=== PATIENT | female | born 1950 | race Caucasian/White ===

== ENCOUNTER 2020-02-06 20:00 | Outpatient (CLI) | payer MEDICARE, OTHER, SELFPAY | END 2020-02-06 20:01 | disposition home or self-care (01) | LOC: SLEEP 02-07 13:33 | PROVIDERS: Family Provider Family Medicine; PCP Nurse Practitioner Family; Visit Provider Nurse Practitioner Family | DX: G47.33 Obstructive sleep apnea (adult) (pediatric) (principal) | CPT/HCPCS: 95810; 95811 ==

== ENCOUNTER → 2020-05-17 14:38 | Outpatient (BNVA) | payer MEDICARE, OTHER, SELFPAY | PROVIDERS: Family Provider Family Medicine; PCP Nurse Practitioner Family; Visit Provider Nurse Practitioner Family | DX: N39.46 Mixed incontinence (principal) | CPT/HCPCS: 81001 ==

== ENCOUNTER 2020-09-17 13:58 | Outpatient (CLI) | payer MEDICARE, OTHER, SELFPAY ==
--- NOTE | 2020-09-17 14:12 | XR_ITS ---
WS: [id number] SCREENING DEXA SCAN Everyone Counts CLINICAL INFORMATION: OSTEOPOROSIS COMPARISON: FINDINGS: The L1-L4 bone mineral density measures 0.926 g/cm2. This corresponds to a T score score of -2.1 and Z score of -1.0. Left femoral neck bone mineral density measures 0.790 g/cm2. This corresponds to a T score of -1.7 an d Z score of -0.7. Right femoral neck bone mineral density measures 0.783 g/cm2. This corresponds to a T score -1.8of an d Z score of -0.8. Mean femoral neck bone mineral density measures 0.787 g/cm2. This corresponds to a T score of -1.8 an d Z score of -0.7. XR/XR DEXA axial skeleton* 69904 IMPRESSION: Osteopenia Patient's FRAX calculated 10 year probability for major osteoporotic fracture i s 21.4 % and osteoporotic hip fracture is 5.1%.
== END 2020-09-17 13:59 | disposition home or self-care (01) ==
LOC: RADWPI 14:05
PROVIDERS: PCP Nurse Practitioner Family; Visit Provider Nurse Practitioner Family
DX: M81.0 Age-related osteoporosis without current pathological fracture (principal); M85.88 Other specified disorders of bone density and structure, other site
CPT/HCPCS: 77080

== ENCOUNTER 2020-11-22 13:58 | Outpatient (CLI) | payer MEDICARE, OTHER, SELFPAY ==
--- NOTE | 2020-11-22 14:12 | CT_ITS ---
WS: [id number] CT LEFT ANKLE, NONCONTRAST WITH 3-D REFORMATS. HISTORY: LEFT LATERAL ANKLE PAIN Technique: All CT scans at [facility] use at least one of these dose optimization techniq ues: automated exposure control; mA and/or kV adjustment per patient size (includes targeted exams wh ere dose is matched to clinical indication); or iterative reconstruction. DLP: 610.19 mGycm COMPARISON: 11/13/2020 There is a nondisplaced fracture extending vertically through the posterior tibia. There is a long no ndisplaced oblique fracture through the distal fibula which is not definitely identified radiographic ally. Fibular fracture extends over length of approximately 8 cm. There are several small tiny avulsi on fractures anterior to the fibula near the distal tibiofibular articulation. Suspect ligamentous in jury involving the anterior tibiofibular ligament. No fracture at the medial malleolus. Talus is inta ct. No calcaneal fracture. Large amount of soft tissue edema along the lateral ankle. CT/CT ankle LT wo con* [id number] IMPRESSION: 1. Nondisplaced vertical distal fibular fracture extends over length of 8 cm. Several small avulsion fractures anteriorly at the tibiofibular articulation. 2. Nondisplaced vertical posterior malleolus fracture.
== END 2020-11-22 13:59 | disposition home or self-care (01) ==
LOC: RADWPI 14:05
PROVIDERS: PCP Nurse Practitioner Family; Visit Provider Nurse Practitioner Family
DX: S82.832A Other fracture of upper and lower end of left fibula, initial encounter for closed fracture (principal); S82.892A Other fracture of left lower leg, initial encounter for closed fracture; X58.XXXA Exposure to other specified factors, initial encounter
CPT/HCPCS: 73700

== ENCOUNTER 2021-05-13 08:43 | Outpatient (RCR) | payer MEDICARE, OTHER, SELFPAY | END 2021-05-28 23:59 | disposition home or self-care (01) | LOC: SPT 08:43 | PROVIDERS: PCP Nurse Practitioner Family; Referring Provider Student in an Organized Health Care Education/Training Program; Visit Provider Student in an Organized Health Care Education/Training Program | DX: Z47.1 Aftercare following joint replacement surgery (principal); Z96.652 Presence of left artificial knee joint | CPT/HCPCS: 97110; 97161 ==

== ENCOUNTER 2021-05-29 06:00 | Outpatient (RCR) | payer MEDICARE, OTHER, SELFPAY | END 2021-06-27 23:59 | disposition home or self-care (01) | LOC: SPT 06:00 | PROVIDERS: PCP Nurse Practitioner Family; Referring Provider Student in an Organized Health Care Education/Training Program; Visit Provider Student in an Organized Health Care Education/Training Program | DX: Z47.1 Aftercare following joint replacement surgery (principal); Z96.652 Presence of left artificial knee joint | CPT/HCPCS: 97110 ==

== ENCOUNTER 2021-06-28 06:00 | Outpatient (RCR) | payer MEDICARE, OTHER, SELFPAY | END 2021-07-28 23:59 | disposition home or self-care (01) | LOC: SPT 06:00 | PROVIDERS: PCP Nurse Practitioner Family; Referring Provider Student in an Organized Health Care Education/Training Program; Visit Provider Student in an Organized Health Care Education/Training Program | DX: Z47.1 Aftercare following joint replacement surgery (principal); Z96.652 Presence of left artificial knee joint | CPT/HCPCS: 97110 ==

== ENCOUNTER 2021-11-06 06:00 | Outpatient (RCR) | payer MEDICARE, OTHER, SELFPAY | END 2021-11-25 23:59 | disposition home or self-care (01) | LOC: SPT 06:00 | PROVIDERS: PCP Nurse Practitioner Family; Referring Provider Student in an Organized Health Care Education/Training Program; Visit Provider Student in an Organized Health Care Education/Training Program | DX: M17.11 Unilateral primary osteoarthritis, right knee (principal) | CPT/HCPCS: 97110; 97150; 97161; G0283 ==

== ENCOUNTER 2021-11-26 06:00 | Outpatient (RCR) | payer MEDICARE, OTHER, SELFPAY | END 2021-12-26 23:59 | disposition home or self-care (01) | LOC: SPT 06:00 | PROVIDERS: PCP Nurse Practitioner Family; Referring Provider Student in an Organized Health Care Education/Training Program; Visit Provider Student in an Organized Health Care Education/Training Program | DX: M17.11 Unilateral primary osteoarthritis, right knee (principal) | CPT/HCPCS: 97110 ==

== ENCOUNTER 2021-12-27 06:00 | Outpatient (RCR) | payer MEDICARE, OTHER, SELFPAY | END 2022-01-25 23:59 | disposition home or self-care (01) | LOC: SPT 06:00 | PROVIDERS: PCP Nurse Practitioner Family; Referring Provider Student in an Organized Health Care Education/Training Program; Visit Provider Student in an Organized Health Care Education/Training Program | DX: M17.11 Unilateral primary osteoarthritis, right knee (principal) | CPT/HCPCS: 97110 ==

== ENCOUNTER 2022-04-21 07:45 | Inpatient (IN) | payer MEDICARE, OTHER, SELFPAY ==
[2022-04-21] VITALS (10 sets, daily range): BP systolic 126–180; BP diastolic 58–99; PULSE 68–91; RESP 15–22; TEMP 36.7–36.8; O2SAT 96–100; BMI 30.3; BMI 30.4
--- NOTE | 2022-04-21 07:55 | XR_ITS ---
WS: [id number] Exam: XR chest 1V portable [id number] Date/Time of Exam: 04/21/2022 8:00 AM Reason For Exam: dyspnea/cough The lungs are clear and fully expanded. Mild plaque atelectasis in the lower lung zones. Normal cardi omediastinal silhouette. Levoscoliosis of the T-spine. Single old lower thoracic compression deformit y. XR/XR chest 1V portable [id number] IMPRESSION: 1. No acute cardiopulmonary process. 2. Levoscoliosis of the thoracic spine. At least one old lower thoracic misa khushbu deformity.
[2022-04-21 08:52] LABS: Basophils % 0.4 %; Eosinophils # 0.3 10^3/uL (0.0-0.8); Eosinophils % 4.1 %; Hematocrit 44.9 % (37.0-47.0); Hemoglobin 14.5 g/dL (11.5-15.3); Lymphocytes # 1.1 10^3/uL (0.8-4.8); Lymphocytes % 15.5 %; Mean Corpuscular HGB Conc 32.3 g/dL (30.0-36.0); Mean Corpuscular Volume 86.8 fl (81-99); Mean Platelet Volume 10.1 fL (7.4-10.4); Monocytes # 0.3 10^3/uL (0.2-0.9); Monocytes % 4.7 %; Neutrophils # 5.07 10^3/uL (1.8-7.7); Neutrophils % 74.9 %; Nucleated Red Blood Cells % 0 %; Platelet Count 230 10^3/cmm (130-400); Red Blood Count 5.17 10^6/uL (4.1-5.3); Red Cell Distribution Width 12.7 % (12.1-15.1); White Blood Count 6.8 10^3/uL (4.0-10.0)
--- NOTE | 2022-04-21 09:14 | ECG_ITS ---
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 Measurements Intervals Winn Rate: 73 P: 43 NE: 151 QRS: 17 QRSD: 96 T: 47 QT: 391 QTc: 432 Interpretive Statements SINUS RHYTHM WITH SINUS ARRHYTHMIA LOW QRS VOLTAGE IN PRECORDIAL LEADS [QRS DEFLECTION < 1.0 mV IN CHEST LEADS] No previous ECG available for comparison Electronically Signed On 04-21-2022 20:49:47 CDT by Kerrie Turner M.D. [id number]
--- NOTE | 2022-04-21 09:14 | CT_ITS ---
WS: [id number] CT HEAD NONCONTRAST HISTORY: Symptoms of Acute Stroke TECHNIQUE: Contiguous axial imaging performed through the brain in 2.5 mm imaging. Bone and soft tiss ue windows. Sagittal and coronal reformats reviewed. All CT scans at [facility] use at least one of these dose optimization techniques: automated exposure control; mA and/or kV adjustment per pa tient size (includes targeted exams where dose is matched to clinical indication); or iterative recon struction. DLP: 1018.88 mGy.cm COMPARISON: None available. No acute intracranial hemorrhage, midline shift or mass effect. Moderate atrophy and small vessel ischemic disease. Multiple lacunar infarcts are identified. Lacunar infarcts in the internal capsules and basal ganglia. No large infarct. Cerebellum and brainstem are negative. Ventricles: Normal size with no hydrocephalus. No inferior displacement of cerebellar tonsils. Paranasal sinuses: As visualized are clear. Mastoid air cells: Well pneumatized. Calvarium and scalp: Skull is intact with no soft tissue edema or swelling. CT/CT head wo con* [id number] IMPRESSION: 1. No acute intracranial hemorrhage or edema. 2. Moderate atrophy and small vessel ischemic disease. 3. Chronic lacunar infarcts in the basal ganglia. No acute sulcal displacement or effacement.
--- NOTE | 2022-04-21 09:15 | W.ED.NEUROSD ---
HPI - Neuro Symptoms/Deficit General: Chief Complaint: Neuro Symptoms/Deficit Stated Complaint: Post covid complications Time Seen by Provider: 04/21/22 07:54 Source: patient Mode of arrival: ambulatory Limitations: altered mental status History of Present Illness: 71-year-old female presents emergency room with complaints of difficulty with memory and speech sudden new onset. She was last known well approximately 36 hours ago according to her . He noticed that yesterday morning when she woke up that her memory was poor her word finding was difficult. She is able to answer questions she is able to give me her phone number her birthday she can identify her she will follow simple commands but states she has trouble focusing and other things she has difficulty with she does not remember taking Paxil of the she cannot really explain to me what has been going on or when it started all that information came from her . She was diagnosed with COVID 10 days ago took a 5-day course of Paxil bed and up until 36 hours ago seem normal. She denies any chest pain she denies any previous history of heart disease or stroke or diabetes. She does have a history of hypothyroidism no previous episodes like this. Onset (ago): hour(s) (36) Timing confirmed by: spouse Location: speech History of same: No Severity: moderate Relieving factors: none Exacerbating factors: none Context: gradual onset Associated symptoms: Reports weakness; Deny chest pain, cough, diaphoresis, fevers/chills, headache(s), anorexia, malaise, nausea, seizures, short of breath, syncope, tingling, vertigo or vomiting Treatments Prior to Arrival: none Review of Systems Const: Denies: fever(s), chills, fatigue, malaise or diaphoresis ENMT: Denies: throat pain, ear or mastoid pain, nasal discharge or nasal congestion Card: Denies: chest pain or syncope Resp: Denies: dyspnea, productive cough or non-productive cough GI: Denies: abdominal pain, nausea or vomiting : Denies: flank pain, difficulty voiding, dysuria, urinary frequency or urinary urgency Musc: Denies: neck pain or back pain Skin/Breast: Denies: rash or pruritus Neuro: Reports: confusion and difficulty communicating thoughts; Denies: headache(s), vertigo or Slurred speech present [facility] PFSH: Medical History Actinic keratoses Areas on face treated with liquid nitrogen 06/2021 Depression Epilepsy Hyperlipidemia Hypothyroidism Mixed stress and urge urinary incontinence ELLIOTT (obstructive sleep apnea) On CPAP: Optimal pressure 8cm, prescribed 6-12cm auto-titrating Osteoporosis Plantar porokeratosis, acquired Status post administration of all doses of COVID-19 vaccine series Surgical History History of bunionectomy History of oral surgery History of tonsillectomy History of total bilateral knee replacement Hx of hysterectomy Hx of lumpectomy Family History Sister , AT AGE 63 HEART ATTACK CAD (coronary artery disease) Denies family history of Clotting disorder Stroke Social History Smoking and tobacco status: never smoked Alcohol intake: never Substance/Drug Use: never Caregiver/support person: Yes (spouse) Household members: spouse Marital status: Current occupational status: retired NIH stroke score NIHSS: Level Of Consciousness - 1a: 0 Level Of Consciousness Questions - 1b: One Correct Level Of Consciousness Commands - 1c: Both Correct Best Gaze - 2: Normal Visual Jesus - 3: No Visual Loss Facial Palsy - 4: Normal Motor Arm Right - 5: No Drift Motor Arm Left - 5: No Drift Motor Leg Right - 6: No Drift Motor Leg Left - 6: No Drift Limb Ataxia - 7: Absent Sensory - 8: Normal Best Language - 9: Mild/Moderate Aphasia Dysarthia - 10: Normal Extinction And Inattention - 11: 0 Score: Total Score: 2 Physical Exam Const: COMMON NORMALS: no acute distress GENERAL APPEARANCE: cooperative and comfortable ORIENTATION/CONSCIOUSNESS: Yes awake, Yes oriented to person, Yes oriented to place and Yes oriented to time HENMT: COMMON NORMALS: normocephalic, atraumatic and hearing grossly normal bilaterally HEAD & SCALP: normocephalic and atraumatic Neck/C-Spine: COMMON NORMALS: no JVD Resp: COMMON NORMALS: normal respiratory effort, No retractions, No use of accessory muscles and clear to auscultation bilaterally AUSCULTATION: clear to auscultation bilaterally Cardio: COMMON NORMALS: no JVD, regular rate, regular rhythm and No murmurs present (Cardio) RATE: regular rate RHYTHM: regular rhythm GI: COMMON NORMALS: Soft to palpation and No hepatosplenomegaly present AUSCULTATION: Yes normoactive bowel sounds PALPATION: Yes Soft to palpation, No Tenderness to palpation present (GI), No Guarding due to palpation present (GI) and Yes No hepatosplenomegaly present Extremity: COMMON NORMALS: normal to inspection, capillary refill normal, no clubbing, cyanosis or edema, no calf tenderness and no pedal edema Neuro: SENSORIUM/ORIENTATION: Yes oriented to person, Yes oriented to place and Yes oriented to time Skin: COMMON NORMALS: no rashes or lesions noted GENERAL SKIN EXAM: no rashes or lesions noted Course Vital Signs: Vital signs: Vital Signs Temperature 98.1 F 04/21/22 08:12 Pulse Rate 73 04/21/22 13:11 Respiratory Rate 22 H 04/21/22 13:11 Blood Pressure 142/77 04/21/22 13:11 Pulse Oximetry 99 04/21/22 13:11 MDM - Neuro Symptoms/Deficit Medical Decision Making Patient has word finding difficulty and memory loss which her reports is now. Interestingly after she had been here time we made the decision to admit her they reported having had a seizure she added that she has a history of seizures and is on Depakote is not taken for the last couple of days. They do not report having had any other fevers. She did test positive for COVID took a course of pack Slo-Bid and then had the symptoms. Discussed Dr. Lentz orders are written. Medical Records I reviewed the patient's medical records. Lab Data I reviewed the patient's lab results. : 04/21/22 08:30 04/21/22 08:30 Radiology Impressions Chest X-Ray 04/21/22 07:55 IMPRESSION: 1. No acute cardiopulmonary process. 2. Levoscoliosis of the thoracic spine. At least one old lower thoracic compression deformity. Head CT 04/21/22 09:14 IMPRESSION: 1. No acute intracranial hemorrhage or edema. 2. Moderate atrophy and small vessel ischemic disease. 3. Chronic lacunar infarcts in the basal ganglia. No acute sulcal displacement or effacement. Laboratory Results WBC 6.8 10^3/uL (4.0-10.0) 04/21/22 08:30 RBC 5.17 10^6/uL (4.1-5.3) 04/21/22 08:30 Hgb 14.5 g/dL (11.5-15.3) 04/21/22 08:30 Hct 44.9 % (37.0-47.0) 04/21/22 08:30 MCV 86.8 fl (81-99) 04/21/22 08:30 MCH 28.0 pg (28.0-34.0) 04/21/22 08:30 MCHC 32.3 g/dL (30.0-36.0) 04/21/22 08:30 RDW 12.7 % (12.1-15.1) 04/21/22 08:30 Plt Count 230 10^3/cmm (130-400) 04/21/22 08:30 MPV 10.1 fL (7.4-10.4) 04/21/22 08:30 Neut % (Auto) 74.9 % 04/21/22 08:30 Lymph % (Auto) 15.5 % 04/21/22 08:30 [place] % (Auto) 4.7 % 04/21/22 08:30 Eos % (Auto) 4.1 % 04/21/22 08:30 Baso % (Auto) 0.4 % 04/21/22 08:30 Neut # (Auto) 5.07 10^3/uL (1.8-7.7) 04/21/22 08:30 Lymph # (Auto) 1.1 10^3/uL (0.8-4.8) 04/21/22 08:30 [place] # (Auto) 0.3 10^3/uL (0.2-0.9) 04/21/22 08:30 Eos # (Auto) 0.3 10^3/uL (0.0-0.8) 04/21/22 08:30 Baso # (Auto) 0.0 10^3/uL (0.0-0.1) 04/21/22 08:30 Nucleated RBC % (auto) 0 % 04/21/22 08:30 Nucleated RBCs # 0.0 /100WBC 04/21/22 08:30 PT 14.00 SECONDS (12.1-14.9) 04/21/22 08:30 INR 1.05 (0.8-1.2) 04/21/22 08:30 APTT 29.3 SECONDS (23.9-36.7) 04/21/22 08:30 Sodium 136 mmol/L (136-145) 04/21/22 08:30 Potassium 4.1 mmol/L (3.5-5.1) 04/21/22 08:30 Chloride 97 mmol/L (98-107) L 04/21/22 08:30 Carbon Dioxide 26 mmol/L (22-29) 04/21/22 08:30 Anion Gap 17.1 (5-19) 04/21/22 08:30 BUN 12 mg/dL (8-23) 04/21/22 08:30 Creatinine 0.6 mg/dL (0.5-0.9) 04/21/22 08:30 GFR Calculation Not Reportable 04/21/22 08:30 Glucose 110 mg/dL (65-115) 04/21/22 08:30 Calculated Osmolality 282 mOsm/kg (285-295) L 04/21/22 08:30 Calcium 9.5 mg/dL (8.5-10.5) 04/21/22 08:30 Total Bilirubin 0.4 mg/dL (0.15-1.2) 04/21/22 08:30 AST 41 U/L (0-32) H 04/21/22 08:30 ALT 21 U/L (0-33) 04/21/22 08:30 Alkaline Phosphatase 100 IU/L (35-105) 04/21/22 08:30 Total Protein 7.0 g/dL (6.6-8.7) 04/21/22 08:30 Albumin 4.5 g/dL (3.5-5.2) 04/21/22 08:30 Globulin 2.5 g/dL (1.3-4.6) 04/21/22 08:30 SARS-CoV-2 Ag (Rapid) Negative (Negative) 04/21/22 09:51 Discharge Plan Discharge Patient Disposition: Admitted As Inpatient Admit Provider: Marysol Lentz Clinical Impression: Cerebrovascular accident, Epilepsy, COVID-19, Hypothyroidism, Elevated blood pressure reading without diagnosis of hypertension Condition: Stable Coding Level of Care Code ED Chief Nuclear Medicine Technologist for Chg Fwd Exam Comprehensive
[2022-04-21 09:22] LABS: Blood Urea Nitrogen 12 mg/dL (8-23); Calcium 9.5 mg/dL (8.5-10.5); Carbon Dioxide 26 mmol/L (22-29); Chloride 97 mmol/L (98-107); Glucose 110 mg/dL (65-115); Osmolality Calculated 282 mOsm/kg (285-295); Sodium 136 mmol/L (136-145)
[2022-04-21 09:29] LABS: Anion Gap 17.1 (5-19); Potassium 4.1 mmol/L (3.5-5.1)
[2022-04-21] MEDS: aspirin 325 mg Tablet PO (09:29)
[2022-04-21] MEDS: labetalol 5 mg/mL SDV 20mL 10 MG IV (09:35)
[2022-04-21 10:11] LABS: Alanine Aminotransferase 21 U/L (0-33); Albumin Level 4.5 g/dL (3.5-5.2); Alkaline Phosphatase 100 IU/L (35-105); Globulin 2.5 g/dL (1.3-4.6); Total Bilirubin 0.4 mg/dL (0.15-1.2)
[2022-04-21 10:12] LABS: INR 1.05 (0.8-1.2); Partial Thromboplastin Time 29.3 SECONDS (23.9-36.7)
[2022-04-21 10:25] LABS: Aspartate Amino Transferase 41 U/L (0-32)
[2022-04-21 11:04] LABS: SARS Covid-2 Antigen Negative (Negative)
--- NOTE | 2022-04-21 11:45 | PM.HP ---
Providers/Chief Complaint Admitting Physician: Marysol Lentz MD Primary Care Provider: FRANCESCO Molina Chief Complaint: Post covid complications History of Present Illness Rox Denson is a 71 year old female who presented to the emergency room with chief complaint of not acting right and concern for possible seizure. Mrs. Denson has a history of seizure disorder for which she has been on Depakote for a long time. Last seizure was maybe 15 to 20 years ago according to the . She will have petit mall seizures but sometimes does have shaking tremors with them. She follows with neurologist in [place]. At her last appointment there was even question about whether or not she needed to stay on Depakote and had been so long since her last seizure. Around April 11, Mrs. Denson tested positive for COVID. She started a prescription for Paxlovid on April 12, finishing it on April 16. She had been doing okay in terms of recovering from COVID, still being tired and such. She was her normal self on Thursday. On Thursday she was a bit lackluster in her interactions. Thursday night she did not sleep at all. On Thursday her describes her as being spaced out . She did not eat much of anything at all and did not seem to care about anything. She was not talking to him. He took her for a drive, hoping that change of scenery might help but there was no change. He wondered at the time if she was having seizures but was not certain. She was okay walking. No report of any falls. Just simply not herself. She did sleep Thursday night. He originally hoped that upon awakening she would be better but she continued to be the same. Mr. Denson took Rox to [facility] this morning and they sent her to the emergency room for further evaluation. In talking with Mrs. Denson she answers predominantly yes/no questions. She can answer things like that she is at the hospital or that her is sitting in the room and speak her name and date of but when you ask her more complex questions the words do not come and she starts crying. When directly asked, she states that she knows what she wants to say but the words will not come out. She answers yes to questions about being dizzy with position changes in particular. Dizziness goes away after a few steps. No tinnitus. No vision changes. She reports difficulty swallowing anything other than water with a choking like sensation. She has not been able to describe to her what was going on. In the emergency room she was noted to be quite hypertensive on arrival with initial blood pressures 180/69. She does not carry a diagnosis of hypertension and is not on any chronic treatment. She does have known hyperlipidemia for which she is on statin therapy. No personal history of stroke. No family history of stroke. She is a non-smoker. NIH stroke scale was 2 per emergency room documentation. She presented outside of the window for tPA or invasive intervention. Noncontrasted CT of the head showed some chronic lacunar infarcts but no acute changes were identified. Atrophy and small vessel ischemic changes also described. Hospitalist were called for admission for further neurological evaluation. Urinalysis is still pending. No current fever. No current upper respiratory symptoms. No GI symptoms. Has been fatigued. Her also had COVID. While in the emergency room, patient had an episode of with described as typical of usual seizure activity staring into space and not responding with some tremulous movements of her upper extremities. Has been clarified that she had not had any of her medications over the weekend including Depakote which she has been on chronically because of history of seizures. I saw Mrs. Denson after this event occurred. She had no recollection. There was no loss of bowel or bladder function. Review of Systems Const: Denies: fever(s) or chills Eyes: Denies: change in vision ENMT: Denies: throat pain or nasal congestion Card: Denies: chest pain, palpitations or edema Resp: Denies: dyspnea, productive cough or non-productive cough GI: Denies: abdominal pain, nausea, vomiting, diarrhea or hematochezia : Reports: urinary incontinence and other (Has not been able to provide urine specimen yet) Musc: Reports: extremity pain (Reports her legs always hurt) and muscle weakness Skin/Breast: Denies: rash Neuro: Reports: dizziness, vertigo (Primarily positional), confusion, behavioral changes, difficulty communicating thoughts and seizure-like activity; Denies: headache(s), numbness in extremities, weakness in extremities, difficulty walking or frequent falls Psych: Reports: depression Josh/Lymph: Denies: easy bruising or easy bleeding Medications/Allergies Home Medications Medication Instructions Recorded Confirmed Last Taken Type alendronate 70 mg tablet (Fosamax) 70 mg PO ONCE 10/03/19 04/21/22 04/19/22 History lactobacillus combination no.9 4 4,000 mmu cells PO DAILY 05/17/20 04/21/22 04/19/22 History billion cell capsule (Adult 50 Plus Probiotic) venlafaxine 75 mg capsule,extended 75 mg PO DAILY 05/17/20 04/21/22 04/19/22 History release 24 hr (Effexor XR) vitamin A-vit C-vit E-zinc-Cu 2 tab PO BID 05/17/20 04/21/22 04/19/22 History tablet aspirin 81 mg tablet,delayed 81 mg PO DAILY 04/21/22 04/21/22 04/19/22 History release divalproex 500 mg tablet,extended 500 mg PO DAILY 04/21/22 04/21/22 04/19/22 History release 24 hr levothyroxine 88 mcg tablet 88 mcg PO DAILY 04/21/22 04/21/22 04/19/22 History rosuvastatin 10 mg tablet 10 mg PO DAILY 04/21/22 04/21/22 04/19/22 History Allergies Allergy/AdvReac Type Severity Reaction Status Date / Time sulfacetamide Allergy Intermediate ADR-Itching Verified 04/21/22 09:29 PFSH Acute PFSH: Medical History Actinic keratoses Areas on face treated with liquid nitrogen 06/2021 Depression Epilepsy Hyperlipidemia Hypothyroidism Mixed stress and urge urinary incontinence ELLIOTT (obstructive sleep apnea) On CPAP: Optimal pressure 8cm, prescribed 6-12cm auto-titrating Osteoporosis Plantar porokeratosis, acquired Status post administration of all doses of COVID-19 vaccine series Surgical History History of bunionectomy History of oral surgery History of tonsillectomy History of total bilateral knee replacement Hx of hysterectomy Hx of lumpectomy Family History Sister , AT AGE 63 HEART ATTACK CAD (coronary artery disease) Denies family history of Clotting disorder Stroke Social History Smoking and tobacco status: never smoked Alcohol intake: never Substance/Drug Use: never Caregiver/support person: Yes (spouse) Household members: spouse Marital status: Current occupational status: retired Vitals/I&O/Wt Last Vital Signs Temp 98.1 F 04/21/22 08:12 Pulse 72 04/21/22 10:40 Resp 19 H 04/21/22 09:31 BP 146/77 04/21/22 10:40 Pulse Ox 99 04/21/22 10:40 Weight last 48 hrs Weight 85.275 kg Physical Exam Narrative: Constitutional: Awake and alert, looks scared, tremulous/shivering before blanket placed over her shoulders, cooperative with yes/no questions and answers simple questions such as name, , date of . When asked to answer more complex questions that are not something she would potentially have an rote memory, she does not appear to find words to answer the questions despite understanding them and starts to cry or appear as if she is HEENT: Normocephalic, face is symmetric, extraocular movements are grossly intact although with vertical followed bilateral movements experiences dizziness and has to close her eyes, pupils are equal and reactive, nasopharynx is clear, oropharynx with moist mucous membranes, unable to fully visualize uvula Neck: Supple Respiratory: Clear to auscultation bilaterally Cardiovascular: Regular rhythm, no murmurs gallops or rubs, venous pulsations noted not overtly distended Abdomen: Soft, nontender, positive bowel sounds Extremities: No pitting edema, tenderness with palpation of calf and moreau, no cyanosis Skin: Dry, no rashes Neuro: Speech is clear predominantly for yes no responses and for 1-3 word combinations of common things that she would know but unable to elicit strings of words longer than this. Strength equal at the hands and feet, gait not assessed, sensation intact to light touch bilaterally, has tremulousness of whole body that improves with covering with a blanket, no other abnormal movements Psych: Appears frightened, at times sad/tearful versus upset/angry about her symptoms Data : 04/21/22 08:30 04/21/22 08:30 Other Labs: Radiology Impressions Chest X-Ray 04/21/22 07:55 IMPRESSION: 1. No acute cardiopulmonary process. 2. Levoscoliosis of the thoracic spine. At least one old lower thoracic compression deformity. Head CT 04/21/22 09:14 IMPRESSION: 1. No acute intracranial hemorrhage or edema. 2. Moderate atrophy and small vessel ischemic disease. 3. Chronic lacunar infarcts in the basal ganglia. No acute sulcal displacement or effacement. Laboratory Results WBC 6.8 10^3/uL (4.0-10.0) 04/21/22 08:30 RBC 5.17 10^6/uL (4.1-5.3) 04/21/22 08:30 Hgb 14.5 g/dL (11.5-15.3) 04/21/22 08:30 Hct 44.9 % (37.0-47.0) 04/21/22 08:30 MCV 86.8 fl (81-99) 04/21/22 08:30 MCH 28.0 pg (28.0-34.0) 04/21/22 08:30 MCHC 32.3 g/dL (30.0-36.0) 04/21/22 08:30 RDW 12.7 % (12.1-15.1) 04/21/22 08:30 Plt Count 230 10^3/cmm (130-400) 04/21/22 08:30 MPV 10.1 fL (7.4-10.4) 04/21/22 08:30 Neut % (Auto) 74.9 % 04/21/22 08:30 Lymph % (Auto) 15.5 % 04/21/22 08:30 [place] % (Auto) 4.7 % 04/21/22 08:30 Eos % (Auto) 4.1 % 04/21/22 08:30 Baso % (Auto) 0.4 % 04/21/22 08:30 Neut # (Auto) 5.07 10^3/uL (1.8-7.7) 04/21/22 08:30 Lymph # (Auto) 1.1 10^3/uL (0.8-4.8) 04/21/22 08:30 [place] # (Auto) 0.3 10^3/uL (0.2-0.9) 04/21/22 08:30 Eos # (Auto) 0.3 10^3/uL (0.0-0.8) 04/21/22 08:30 Baso # (Auto) 0.0 10^3/uL (0.0-0.1) 04/21/22 08:30 Nucleated RBC % (auto) 0 % 04/21/22 08:30 Nucleated RBCs # 0.0 /100WBC 04/21/22 08:30 PT 14.00 SECONDS (12.1-14.9) 04/21/22 08:30 INR 1.05 (0.8-1.2) 04/21/22 08:30 APTT 29.3 SECONDS (23.9-36.7) 04/21/22 08:30 Sodium 136 mmol/L (136-145) 04/21/22 08:30 Potassium 4.1 mmol/L (3.5-5.1) 04/21/22 08:30 Chloride 97 mmol/L (98-107) L 04/21/22 08:30 Carbon Dioxide 26 mmol/L (22-29) 04/21/22 08:30 Anion Gap 17.1 (5-19) 04/21/22 08:30 BUN 12 mg/dL (8-23) 04/21/22 08:30 Creatinine 0.6 mg/dL (0.5-0.9) 04/21/22 08:30 GFR Calculation Not Reportable 04/21/22 08:30 Glucose 110 mg/dL (65-115) 04/21/22 08:30 Calculated Osmolality 282 mOsm/kg (285-295) L 04/21/22 08:30 Calcium 9.5 mg/dL (8.5-10.5) 04/21/22 08:30 Total Bilirubin 0.4 mg/dL (0.15-1.2) 04/21/22 08:30 AST 41 U/L (0-32) H 04/21/22 08:30 ALT 21 U/L (0-33) 04/21/22 08:30 Alkaline Phosphatase 100 IU/L (35-105) 04/21/22 08:30 Total Protein 7.0 g/dL (6.6-8.7) 04/21/22 08:30 Albumin 4.5 g/dL (3.5-5.2) 04/21/22 08:30 Globulin 2.5 g/dL (1.3-4.6) 04/21/22 08:30 SARS-CoV-2 Ag (Rapid) Negative (Negative) 04/21/22 09:51 A&P Assessment and plan (1) Multiple neurological symptoms: Patient presents with a degree of expressive aphasia, difficulty swallowing and vertigo with position changes and eye movements occurring over the last couple of days. She is approximately 10 days post onset of COVID. She received treatment with paxlovid and was vaccinated. Post COVID/COVID-associated event within the differential but will be challenging to discern from other potential causes. has felt that she was having seizures, which she is known to have, petit mal, sometimes with tremors. She has not had a seizure in 15 to 20 years. The events this past weekend are different than what he recalls. Seizure threshold likely lowered by COVID initially and further by lack of Depakote the last couple of days. Patient has known hyperlipidemia and CT imaging shows chronic microvascular changes as well as chronic lacunar infarcts increasing probability of primary [employer]OUD [employer] ARCHITECT event. No known history of arrhythmias. She does take chronic aspirin and statin therapy. Blood pressures were noted to be elevated upon arrival, quite significantly, but she has no known diagnosis of hypertension. At this point in time because of the apparent expressive aphasia and dysphagia, evaluating and treating as a stroke Carotid ultrasound Echocardiogram MRI Add Plavix to aspirin Telemetry monitoring Check lipid panel and A1c for risk stratification Permissive hypertension for the time being Serial neuro exams Speech therapy PT and OT Clear liquid diet currently based on bedside swallow eval with clear liquids done by me during physical exam, then as per speech recommendations Status: Acute (2) Elevated blood pressure reading without diagnosis of hypertension: Initial pressures 180s over 100s, patient admits to being quite scared about what is going on. Has not had significant hypertension noted previously. Do not think that neurological symptoms are secondary to hypertension at this time though it remains within the differential. She did receive several doses of antihypertensive agents in the emergency room with blood pressure improved to 150s over 90s, no resolution in her symptoms. Currently will allow permissive hypertension Monitor blood pressures Initiate antihypertensive treatment if indicated after further evaluation Status: Acute (3) COVID-19: Diagnosed approximately April 11, status post treatment with Paxlovid, which completed on 04/16/2022 Rapid COVID antigen was negative in the emergency room, asymptomatic in terms of usual symptoms Status: Acute (4) Epilepsy: Specific type unknown but by description petit mall primarily, has chronically been on Depakote, followed by neurologist in [place] Had apparent seizure in the emergency room Was loaded with Keppra in the emergency room which I will continue Depakote level pending, hold continuation until level known Neurologist in [place] had consider discontinuation of Depakote at last clinic visit Seizure precautions Status: Chronic (5) Hyperlipidemia: Specific type unknown Chronically on statin therapy Continue statin therapy Check lipid panel Status: Chronic (6) Hypothyroidism: Chronically on levothyroxine Continue levothyroxine at home dosing Check TSH Status: Chronic Qualifiers: Hypothyroidism type: acquired Qualified Code(s): E03.9 - Hypothyroidism, unspecified (7) ELLIOTT (obstructive sleep apnea): Chronically on CPAP 6-12 auto titrating with sleep Will order CPAP for sleep Status: Chronic (8) Depression: Chronically on venlafaxine Depending on how blood pressures do during course of hospital stay, may have to consider alternative antidepressant that does not have risk of significant hypertension Status: Chronic Plan Inpatient admission Neurological and other care as noted above > evaluating for possibility of ischemic event versus seizures presently Follow-up pending urinalysis and Depakote level Address potential resumption of Depakote status post above Depending on clinical course may consider inpatient neurological evaluation versus close follow-up with her neurologist in [place] Low volume IV fluids overnight Lovenox for DVT prophylaxis Supportive care otherwise Currently anticipate discharge home with her , possibly with some therapy services depending on clinical course Will need close follow-up with her neurologist upon discharge Findings, concerns and plans were reviewed with patient and her and both were given an opportunity to ask questions Full code Attestations Medical Necessity Statement*: Anticipated stay greater than two midnights in a patient presenting with neurological symptoms as described. Symptoms have been present since Thursday. Concern for cerebrovascular event versus post COVID event versus seizure. Plans are as noted above. Coding Level of Care Code Acute [employer]plex Pr[employer] Installer for Vivien Rabago Diagnoses Multiple neurological symptoms R29.90 COVID-19 U07.1 Epilepsy G40.909 Hyperlipidemia E78.5 Elevated blood pressure reading without diagnosis of hypertension R03.0 Hypothyroidism E03.9 Hypothyroidism type: acquired ELLIOTT (obstructive sleep apnea) G47.33 Depression F32.9 NIH stroke score NIHSS Level Of Consciousness - 1a: 0 Level Of Consciousness Questions - 1b: Both Correct Level Of Consciousness Commands - 1c: Both Correct Best Gaze - 2: Normal Visual Jesus - 3: No Visual Loss Facial Palsy - 4: Normal Motor Arm Right - 5: No Drift Motor Arm Left - 5: No Drift Motor Leg Right - 6: No Drift Motor Leg Left - 6: No Drift Limb Ataxia - 7: Absent Sensory - 8: Normal Best Language - 9: Mild/Moderate Aphasia Dysarthia - 10: Normal Extinction And Inattention - 11: 0 Score Total Score: 1
[2022-04-21 12:02] LABS: Glucose Point of Care 96 mg/dL (70-110)
[2022-04-21] MEDS: enoxaparin 40 mg/0.4 mL Syringe SUBCUT (16:05)
[2022-04-21] MEDS: sodium chloride 0.9% 1,000 ML 75 ML IV (16:05)
--- NOTE | 2022-04-21 16:39 | PC.PT ---
Pt was attempted to be seen but was not feeling well and fatigued and did not want to get up and do anything. Pt was told PT would be back in the morning to check on her. Pt agreed. Pt was not seen at this time.
[2022-04-21 20:21] LABS: Add Urine Microscopic? NO; Charge for UA Resulting for Rev
[2022-04-21 20:32] LABS: Bilirubin Urine Neg (Negative); Blood Urine Neg (Negative); Glucose Urine UA Norm (Normal); Ketones Urine Negative (Negative); Leukocyte Esterase Urine Negative (Negative); Nitrate Urine Negative (Negative); Protein Urine Neg (Negative); Specific Gravity, Urine 1.005 (1.005-1.030); Urine Appearance Clear (CLEAR); Urine Color Yellow (Yellow); Urobilinogen Urine Norm (Negative); pH Urine 7 (5-7)
[2022-04-21] MEDS: atorvastatin 40 mg Tablet PO (20:36)
[2022-04-21 21:19] LABS: Amphetamines Screen Urine Negative (Negative); Barbiturates Screen Urine Negative (Negative); Benzodiazepines Screen Urine Negative (Negative); Cocaine Screen Urine Negative (Negative); Opiate Screen Urine Negative (Negative); PCP Screen Urine Negative (Negative); THC Screen Urine Negative (Negative)
[2022-04-21 21:33] LABS: Valproic Acid Level 24.7 ug/mL (50-100)
[2022-04-22] VITALS (8 sets, daily range): BP systolic 121–169; BP diastolic 71–79; PULSE 60–94; RESP 14–17; TEMP 36.9–37.2; O2SAT 95–98
--- NOTE | 2022-04-22 06:00 | USCV_ITS ---
Rox Denson Age: 71 Gender: F : 1950 Exam Date: 04/22/2022 01:29 Ordering Phys: Marysol Lentz MD Technologist: MARNIE Exam Location: [facility] – [place] Indication: Expressive aphasia, vertigo, dysphagia BP: 126 / 71 HR: 75 Rhythm: Sinus Technical Quality: Adequate MEASUREMENTS (Male / Female) Normal Values 2D ECHO LVOT Diameter 1.9 cm LV Ejection Fraction MOD 2C 63.9 % LV Ejection Fraction 2C AL 69.0 % LA Diameter 3.3 cm LA Width 3.0 cm LA Height 4.6 cm RA Width 2.9 cm RA Height 4.0 cm Aorta at Sinotubular Diameter 3.2 cm IVC Diameter 1.4 cm M-MODE Aortic Annulus Diameter 3.0 cm LA Ao Ratio MM 1.0 MV E Point Septal Separation 0.4 cm DOPPLER AV Peak Velocity 108.0 cm/s LVOT Peak Velocity 95.0 cm/s AV Area Cont Eq vti 2.5 cm squared AV Area Cont Eq pk 2.4 cm squared MV Peak Velocity 81.0 cm/s MV Area PHT 2.6 cm squared Mitral E to A Ratio 0.8 MV E' Velocity 36.0 cm/s Mitral E to MV E' Ratio 8.6 Mitral E to LV E' Lateral Ratio 8.4 Mitral E to LV E' Septal Ratio 8.9 TR Peak Velocity 194.0 cm/s TR Peak Gradient 15.1 mmHg TV Peak E Velocity 44.0 cm/s Right Atrial Pressure 5.0 mmHg Pulmonary Artery Systolic Pressu 20.1 mmHg PV Peak Velocity 67.0 cm/s RV Acceleration Time 0.1 s RV Ejection Time 0.4 s RV AcT/ET 0.3 FINDINGS Left Ventricle Normal left ventricular size, systolic function and wall thickness, with no regional wall motion abnormalities. Left ventricular ejection fraction is estimated at 70 %. Normal diastolic function. Right Ventricle Normal right ventricular size and systolic function. Right ventricular systolic pressure 20.1 mmHg. Right Atrium Normal right atrial size. Right atrial pressure estimated at 3 mmHg. Left Atrium Normal left atrial size. Mitral Valve Mild mitral annular calcification. Structurally normal mitral valve. No mitral valve stenosis. No mitral valve regurgitation. Aortic Valve Structurally normal trileaflet aortic valve. No aortic valve stenosis. No aortic valve regurgitation. Tricuspid Valve Structurally normal tricuspid valve. No tricuspid valve stenosis. Trace tricuspid valve regurgitation. Pulmonic Valve Structurally normal pulmonic valve. No pulmonary valve stenosis. Trace pulmonary valve regurgitation. Pericardium No pericardial effusion. Aorta Normal size aortic root and proximal ascending aorta. Normal descending aorta size. IVC Normal IVC dimension with >50% respiratory change of the inferior vena cava. CONCLUSIONS 1. Normal left ventricular size, systolic function and wall thickness, with no regional wall motion abnormalities. Left ventricular ejection fraction is estimated at 70 %. Normal diastolic function. 2. Normal right ventricular size and systolic function. 3. Normal pulmonary artery pressure. 4. No significant valvular abnormality. 5. No prior similar studies to compare. Brielle Marmolejo MD (Electronically Signed) Final Date: 22 April 2022 12:00 S
--- NOTE | 2022-04-22 06:00 | USCV_ITS ---
Rox Denson Age: 71 Gender: F : 1950 Exam Date: 04/22/2022 00:50 Ordering Phys: Marysol Lentz MD Technologist: MARNIE Exam Location: [facility] [place] Indication: expressive aphasia, vertigo, dysphagia. No DM. Non-smoker Risk Factors: expressive aphasia, vertigo, dysphagia. No DM. Non-smoker Previous Vascular Surgery: None Right Brachial BP: / Left Brachial BP: / Right Left Velocity (cm/s) Spectral Plaque Velocity (cm/s) Spectral Plaque Syst/Diast Broadening Syst/Diast Broadening 221.20/18.10 None None Prox CCA 94.80 / 14.30 None None 94.80/ 15.40 None None Mid CCA 71.70 / 12.10 None None 71.70/ 13.20 None None Distal CCA 76.10 / 14.30 None None 82.70/ 23.20 Min Kodi Prox ICA 73.00 / 21.70 Min [place] 83.80/ 24.30 Min None Mid ICA 79.50 / 21.00 Min None 81.10/ 21.80 Min None Distal ICA 74.30 / 25.00 Min None 101.40 Min None ECA 51.30 Min None 0.38 ICA/CCA 0.84 Antegrade Vertebral Antegrade 41.30/ 11.70 cm/s 39.80/ 11.70 cm/s Tri Subclavian Tri 92.00 81.90 CONCLUSIONS Right ICA stenosis <50%. Mild atheromatous plaque right carotid bulb/ICA. Left ICA stenosis <50%. Mild atheromatous plaque left carotid bulb/ICA. Normal antegrade Doppler flow noted in the right vertebral artery. Normal antegrade Doppler flow noted in the left vertebral artery. Raheem Phoenix MD (Electronically Signed) Final Date: 24 April 2022 17:33 S
[2022-04-22 07:46] LABS: Chol HDL Ratio 5.28 mg/dL (0.0-4.40); Cholesterol 227 mg/dL (0-200); HDL Cholesterol 43 mg/dL (60-100); LDL Cholesterol Calculated 146 mg/dL (50-129); Triglycerides 188 mg/dL (0-150)
[2022-04-22 07:58] LABS: Estmated Average Glucose 97
[2022-04-22] MEDS: aspirin 81 mg EC Tablet PO (08:33)
[2022-04-22] MEDS: venlafaxine ER (24HR) 75 mg Capsule PO (08:33)
[2022-04-22] MEDS: clopidogrel 75 mg Tablet PO (08:33)
[2022-04-22] MEDS: levothyroxine 88 mcg Tablet PO (08:33)
--- NOTE | 2022-04-22 10:28 | PC.CHAP ---
Pastoral Care Encounter/Spiritual Assessment Type of Contact [] Declined ems director visit [] Patient/Family/Request visit [] Outpatient visit [] Follow-up visit [] Physician referral [] Code/Alert [x] Routine visit [] Staff referral [] Actively dying [] Patient sleeping [] Family support [] [] Out of room [] Palliative care [] [] Receiving care in room [] Pre-surgical visit [] Trauma [] Long length of stay [] ICU visit [x] Other: covid Relational/Emotional Strength [] Patient feels connected with others/family/visitors/staff [] Distress [] Loneliness/isolation [] Abandonment Spirituality of Patient [] Person of Cecilia [] Attends Adventist of their Cecilia [] Believes in Prayer [] Reads Bible or Gnosticism materials [] There are Spiritual issues to be addressed Change Attendant Interventions [] Prayer [] Active listening [] Non-anxious presence [] Spiritual/emotional support [] Crisis/trauma care [] Spiritual counseling [] Bereavement support [] Provided bereavement packet [] Provided Bible/devotional materials [] Provided toy/stuffed animal, coloring book to patient or family member [] Provided Communion [] Anointing/[place] [] Salvation [] Completed spiritual assessment [] Other: Impact on Illness or Injury [] Angry [] Fearful [] Anxious [] Often cries [] Exhaustion [] Unable to work [] Unable to attend latter day [] Unable to walk/stand [] Unable to read [] Unable to drive [] Unable to eat/drink [] Unable to sleep [] Unable to be with family [] Patient intubated [] Other: Summary Time spent with patient
--- NOTE | 2022-04-22 11:03 | PM.PN ---
Subjective Subjective: This morning patient is awake and alert no strokelike features No word finding difficulty is at the bedside She is hemodynamically stable Work-up so far is unremarkable MRI head carotid Doppler and echo reports are pending All questions were answered to the satisfaction I have advanced to regular diet Vitals/I&O/Wt Last Vital Signs Temp 98.5 F 04/22/22 07:20 Pulse 77 04/22/22 07:20 Resp 14 04/22/22 07:20 BP 149/77 04/22/22 07:20 Pulse Ox 98 04/22/22 07:20 04/21/22 04/22/22 04/22/22 22:59 06:59 14:59 Intake Total 230 / 230 1110 / 1340 Balance 230 / 230 1110 / 1340 Weight last 48 hrs Weight 85.366 kg Weight 85.275 kg Physical Exam Narrative: NIH 0 No word finding difficulty Pleasant and cooperative Nonfocal neuro exam S1, S2 Abdomen soft No audible stridor or wheezing Family is at the bedside No word finding difficulty at all, no signs of confusion Pleasant and cooperative Euvolemic Data : 04/21/22 08:30 04/21/22 08:30 A&P Assessment and plan (1) Epilepsy: Status: Chronic (2) ELLIOTT (obstructive sleep apnea): Status: Chronic (3) Hyperlipidemia: Status: Chronic (4) Depression: Status: Chronic (5) 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 (6) COVID-19: Status: Acute (7) Cerebrovascular accident: Status: Acute Plan Patient came in because of word finding difficulty No active signs of stroke Rule out MCA territorial lacunar infarct MRI head is pending Carotid Doppler echo is pending Check prolactin History of seizure no active breakthrough seizure noticed Discontinue IV Keppra, patient takes 5 mg dIVOLAPREX which I would continue Carotid Doppler, echo MRI head is pending Afebrile No signs of meningitis Full code Regular diet PT evaluation Plan to discharge her tomorrow after work-up Recently suffered from COVID-19 status post Paxil with Currently on dual antiplatelet therapy for possible TIA Attestations Medical Necessity Statement*: Discharge tomorrow Time Spent in Patient Care: 30 Coding Level of Care Code Acute Community Health Nurse Supervisor for g Fwd Diagnoses Epilepsy G40.909 ELLIOTT (obstructive sleep apnea) G47.33 Hyperlipidemia E78.5 Depression F32.9 Mixed stress and urge urinary incontinence N39.46 COVID-19 U07.1 Cerebrovascular accident I63.9
[2022-04-22 11:35] LABS: Prolactin 23.54 ng/mL (4.8-23.3)
--- NOTE | 2022-04-22 14:08 | MR_ITS ---
WS: [id number] MRI HEAD WITHOUT CONTRAST TECHNIQUE: Sagittal T1, T2 axial, T2 axial FLAIR, axial and coronal T1 images, axial susceptibility w eighted imaging, axial diffusion weighted images, and coronal T2 images were obtained. CLINICAL INFORMATION: expressive aphasia, vertigo, difficulty swallowing, hx sz COMPARISON: CT April 21, 2022 FINDINGS: No evidence of restricted diffusion to suggest acute ischemia. Ventricular system and basilar cistern s are patent. Moderate small vessel changes. Mild parenchymal volume loss. Normal posterior fossa. No rmal vascular flow voids at the skull base. No extra-axial fluid collections. No evidence of mass or mass effect. Mild mucosal thickening ethmoid air cells. Mastoid air cells are well aerated. A few tiny chronic lacunar infarcts in the basal ganglia. Mild small vessel changes in the faye. No h emosiderin on the susceptibly weighted images. Normal optic chiasm and pituitary infundibulum. Modera te symmetric atrophy temporal lobes and hippocampal formations. Normal cavernous sinuses and Meckel's cave. MR/MR head wo con* [id number] IMPRESSION: 1. No evidence of restricted diffusion to suggest acute ischemia. 2. Moderate small vessel changes with mild parenchymal volume loss. 3. A few tiny chronic lacunar infarcts in the basal ganglia. 4. Moderate symmetric atrophy of the temporal lobes and hippocampal formations . 5. No other significant findings.
[2022-04-22] MEDS: enoxaparin 40 mg/0.4 mL Syringe SUBCUT (14:43)
[2022-04-22] MEDS: atorvastatin 40 mg Tablet PO (20:23)
[2022-04-23 00:10] VITALS: BP 147/74; PULSE 85; RESP 16; TEMP 37.2; O2SAT 97
[2022-04-23 04:55] LABS: Basophils # 0.1 10^3/uL (0.0-0.1); Basophils % 0.9 %; Eosinophils # 0.5 10^3/uL (0.0-0.8); Eosinophils % 7.7 %; Hematocrit 40.4 % (37.0-47.0); Hemoglobin 13.5 g/dL (11.5-15.3); Lymphocytes # 1.3 10^3/uL (0.8-4.8); Lymphocytes % 21.6 %; Mean Corpuscular HGB Conc 33.4 g/dL (30.0-36.0); Mean Corpuscular Hemoglobin 28.3 pg (28.0-34.0); Mean Corpuscular Volume 84.7 fl (81-99); Monocytes # 0.4 10^3/uL (0.2-0.9); Monocytes % 7.3 %; Neutrophils # 3.63 10^3/uL (1.8-7.7); Neutrophils % 61.8 %; Nucleated Red Blood Cells % 0 %; Platelet Count 215 10^3/cmm (130-400); Red Blood Count 4.77 10^6/uL (4.1-5.3); Red Cell Distribution Width 12.9 % (12.1-15.1); White Blood Count 5.9 10^3/uL (4.0-10.0)
[2022-04-23 05:15] VITALS: BP 149/75; PULSE 76; RESP 18; TEMP 37.3; O2SAT 96
[2022-04-23 05:25] LABS: Anion Gap 15.2 (5-19); Blood Urea Nitrogen 10 mg/dL (8-23); Calcium 8.9 mg/dL (8.5-10.5); Carbon Dioxide 25 mmol/L (22-29); Chloride 100 mmol/L (98-107); Glucose 102 mg/dL (65-115); Osmolality Calculated 281 mOsm/kg (285-295); Potassium 4.2 mmol/L (3.5-5.1); Sodium 136 mmol/L (136-145)
[2022-04-23 06:00] VITALS: PULSE 69
[2022-04-23 08:17] VITALS: BP 148/80; PULSE 81; RESP 18; TEMP 37.1; O2SAT 96
[2022-04-23] MEDS: aspirin 81 mg EC Tablet PO (08:29)
[2022-04-23] MEDS: clopidogrel 75 mg Tablet PO (08:29)
[2022-04-23] MEDS: venlafaxine ER (24HR) 75 mg Capsule PO (08:29)
[2022-04-23] MEDS: divalproex ER 500 mg Tablet (24H) PO (08:29)
[2022-04-23] MEDS: levothyroxine 88 mcg Tablet PO (08:29)
--- NOTE | 2022-04-23 08:29 | P.DS_ITS ---
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 Please review detailed H&P of Dr. Lentz for further details. Her hospital course remained stable, no hemodynamic instability, CBC BMP unremarkable. MRI head did not reveal acute CVA event. Patient is able to eat on her own, did not require PT. She is able to walk on her own. Able to swallow food without choking or aspiration. Afebrile. Her valproic acid level was low. I have increased valproic dose to 500mg twice a day from once a day regimen. Echo unremarkable. For her possible TIA I will give her Plavix for 21 days along aspirin. She most likely had a breakthrough seizure prolactin slightly high at 23.5. As per the they will follow-up with the neurology. They do not follow-up with Dr. Quiroga Physical Exam Narrative: NIH 0 No word finding difficulty Pleasant and cooperative Nonfocal neuro exam S1, S2 Abdomen soft No audible stridor or wheezing Family is at the bedside No word finding difficulty at all, no signs of confusion Pleasant and cooperative Euvolemic Discharge Data Studies Completed and Pending Completed Studies During Hospitalization Category Date Time Status CT head wo con* [id number] Stat Cat Scan 04/21/22 09:14 Completed XR chest 1V portable [id number] Stat Exams 04/21/22 07:55 Completed MR head wo con* [id number] Routine MRI 04/22/22 14:08 Completed CV. echo complete* [id number] Routine Ultrasound 04/22/22 06:00 Completed Pending at discharge Category Date Time Status CV carotid duplex BI* [id number] Routine Ultrasound 04/22/22 06:00 Taken Radiology Impressions Chest X-Ray 04/21/22 07:55 IMPRESSION: 1. No acute cardiopulmonary process. 2. Levoscoliosis of the thoracic spine. At least one old lower thoracic compression deformity. Head CT 04/21/22 09:14 IMPRESSION: 1. No acute intracranial hemorrhage or edema. 2. Moderate atrophy and small vessel ischemic disease. 3. Chronic lacunar infarcts in the basal ganglia. No acute sulcal displacement or effacement. Head MRI 04/22/22 14:08 IMPRESSION: 1. No evidence of restricted diffusion to suggest acute ischemia. 2. Moderate small vessel changes with mild parenchymal volume loss. 3. A few tiny chronic lacunar infarcts in the basal ganglia. 4. Moderate symmetric atrophy of the temporal lobes and hippocampal formations. 5. No other significant findings. Laboratory Results WBC 5.9 10^3/uL (4.0-10.0) 04/23/22 04:06 RBC 4.77 10^6/uL (4.1-5.3) 04/23/22 04:06 Hgb 13.5 g/dL (11.5-15.3) 04/23/22 04:06 Hct 40.4 % (37.0-47.0) 04/23/22 04:06 MCV 84.7 fl (81-99) 04/23/22 04:06 MCH 28.3 pg (28.0-34.0) 04/23/22 04:06 MCHC 33.4 g/dL (30.0-36.0) 04/23/22 04:06 RDW 12.9 % (12.1-15.1) 04/23/22 04:06 Plt Count 215 10^3/cmm (130-400) 04/23/22 04:06 MPV 10.0 fL (7.4-10.4) 04/23/22 04:06 Neut % (Auto) 61.8 % 04/23/22 04:06 Lymph % (Auto) 21.6 % 04/23/22 04:06 [place] % (Auto) 7.3 % 04/23/22 04:06 Eos % (Auto) 7.7 % 04/23/22 04:06 Baso % (Auto) 0.9 % 04/23/22 04:06 Neut # (Auto) 3.63 10^3/uL (1.8-7.7) 04/23/22 04:06 Lymph # (Auto) 1.3 10^3/uL (0.8-4.8) 04/23/22 04:06 [place] # (Auto) 0.4 10^3/uL (0.2-0.9) 04/23/22 04:06 Eos # (Auto) 0.5 10^3/uL (0.0-0.8) 04/23/22 04:06 Baso # (Auto) 0.1 10^3/uL (0.0-0.1) 04/23/22 04:06 Nucleated RBC % (auto) 0 % 04/23/22 04:06 Nucleated RBCs # 0.0 /100WBC 04/23/22 04:06 PT 14.00 SECONDS (12.1-14.9) 04/21/22 08:30 INR 1.05 (0.8-1.2) 04/21/22 08:30 APTT 29.3 SECONDS (23.9-36.7) 04/21/22 08:30 Sodium 136 mmol/L (136-145) 04/23/22 04:06 Potassium 4.2 mmol/L (3.5-5.1) 04/23/22 04:06 Chloride 100 mmol/L (98-107) 04/23/22 04:06 Carbon Dioxide 25 mmol/L (22-29) 04/23/22 04:06 Anion Gap 15.2 (5-19) 04/23/22 04:06 BUN 10 mg/dL (8-23) 04/23/22 04:06 Creatinine 0.6 mg/dL (0.5-0.9) 04/23/22 04:06 GFR Calculation Not Reportable 04/23/22 04:06 Glucose 102 mg/dL (65-115) 04/23/22 04:06 POC Glucose 96 mg/dL (70-110) 04/21/22 11:57 Estimat Average Glucose 97 04/22/22 07:05 Hemoglobin A1c 5.0 % (4.0-6.0) 04/22/22 07:05 Calculated Osmolality 281 mOsm/kg (285-295) L 04/23/22 04:06 Calcium 8.9 mg/dL (8.5-10.5) 04/23/22 04:06 Total Bilirubin 0.4 mg/dL (0.15-1.2) 04/21/22 08:30 AST 41 U/L (0-32) H 04/21/22 08:30 ALT 21 U/L (0-33) 04/21/22 08:30 Alkaline Phosphatase 100 IU/L (35-105) 04/21/22 08:30 Total Protein 7.0 g/dL (6.6-8.7) 04/21/22 08:30 Albumin 4.5 g/dL (3.5-5.2) 04/21/22 08:30 Globulin 2.5 g/dL (1.3-4.6) 04/21/22 08:30 Triglycerides 188 mg/dL (0-150) H 04/22/22 07:05 Cholesterol 227 mg/dL (0-200) H 04/22/22 07:05 LDL Cholesterol, Calc 146 mg/dL (50-129) H 04/22/22 07:05 HDL Cholesterol 43 mg/dL (60-100) L 04/22/22 07:05 LDL/HDL Ratio 3.40 RATIO (0.00-3.22) H 04/22/22 07:05 Cholesterol/HDL Ratio 5.28 mg/dL (0.0-4.40) H 04/22/22 07:05 Prolactin 23.54 ng/mL (4.8-23.3) H 04/22/22 07:05 Urine Color Yellow (Yellow) 04/21/22 13:02 Urine Appearance Clear (CLEAR) 04/21/22 13:02 Urine pH 7 (5-7) 04/21/22 13:02 Ur Specific Mobile 1.005 (1.005-1.030) 04/21/22 13:02 Urine Protein Neg (Negative) 04/21/22 13:02 Urine Glucose (UA) Norm (Normal) 04/21/22 13:02 Urine Ketones Negative (Negative) 04/21/22 13:02 Urine Blood Neg (Negative) 04/21/22 13:02 Urine Nitrate Negative (Negative) 04/21/22 13:02 Urine Bilirubin Neg (Negative) 04/21/22 13:02 Urine Urobilinogen Norm mg/dL (Negative) 04/21/22 13:02 Ur Leukocyte Esterase Negative (Negative) 04/21/22 13:02 Urine Opiates Screen Negative ng/mL (Negative) 04/21/22 13:02 Ur Barbiturates Screen Negative ng/mL (Negative) 04/21/22 13:02 Valproic Acid 24.7 ug/mL (50-100) L 04/21/22 08:30 Ur Phencyclidine Scrn Negative ng/mL (Negative) 04/21/22 13:02 Ur Amphetamines Screen Negative ng/mL (Negative) 04/21/22 13:02 U Benzodiazepines Scrn Negative ng/mL (Negative) 04/21/22 13:02 Urine Cocaine Screen Negative ng/mL (Negative) 04/21/22 13:02 U Marijuana (THC) Screen Negative ng/mL (Negative) 04/21/22 13:02 SARS-CoV-2 Ag (Rapid) Negative (Negative) 04/21/22 09:51 Vitals Last Vital Signs Temp 98.8 F 04/23/22 08:17 Pulse 81 04/23/22 08:17 Resp 18 04/23/22 08:17 BP 148/80 04/23/22 08:17 Pulse Ox 96 04/23/22 08:17 O2 Del Method 04/23/22 05:15 Discharge Plan Discharge Patient Disposition: Home Condition: Stable Prescriptions: New clopidogrel 75 mg Tablet 75 mg PO DAILY Qty: 20 0RF divalproex 500 mg tablet,delayed release (DR/EC) 500 mg PO BID Qty: 120 4RF Continued alendronate [Fosamax] 70 mg tablet 70 mg PO ONCE vitamin A-vit C-vit E-zinc-Cu Tablet 2 tab PO BID Rx Instructions: administer with meals Adult 50 Plus Probiotic 4 billion cell capsule 4,000 mmu cells PO DAILY Rx Instructions: administer with a meal venlafaxine [Effexor XR] 75 mg capsule,extended release 24hr 75 mg PO DAILY levothyroxine 88 mcg tablet 88 mcg PO DAILY rosuvastatin 10 mg tablet 10 mg PO DAILY aspirin 81 mg Tablet,Delayed Release (Dr/Ec) 81 mg PO DAILY Qty: 30 0RF Discontinued divalproex 500 mg tablet extended release 24 hr 500 mg PO DAILY Discharge Orders: Discharge Order (Routine); Ordered 04/23/22 Ordered By: Jacque Herndon Referrals: Rachel Constantino FNP [Primary Care Provider] - 04/28/22 1:30 pm Discharge Diet: Cardiac Discharge Activity: Increase activity as tolerated Patient Instructions: Clopidogrel (By mouth), Divalproex (By mouth), Epilepsy (DC), Ischemic Stroke (IP), COVID-19 (Coronavirus Disease 2019) (GEN), Opioid Safety, Stroke Stoplight Discharge Attestations Time Spent in Discharge Care*: less than 30 min Quality Metrics Clinical Quality Measures [ No reported AMI, CVA or VTE this stay] Coding Level of Care Code Acute Chg FW DC note Diagnoses Epilepsy G40.909 ELLIOTT (obstructive sleep apnea) G47.33 Hyperlipidemia E78.5 Depression F32.9 Mixed stress and urge urinary incontinence N39.46 COVID-19 U07.1 Cerebrovascular accident I63.9
[2022-04-23 09:37] VITALS: BP 148/80; PULSE 81; RESP 18; TEMP 37.1; O2SAT 96
--- NOTE | 2022-04-23 09:52 | PC.NURSE ---
discharge pt discharged to home in stable condition, discharge instructions reviewed with pt and at bedside, all questions answered, pt verbalizes understanding. IV removed.
== END 2022-04-23 09:51 | disposition home or self-care (01) | DRG 101 ==
LOC: ER 09:20 → MEDSURG 12:26
PROVIDERS: Admitting Provider Hospitalist; Emergency Provider Family Medicine; PCP Nurse Practitioner Family; Visit Provider Internal Medicine
DX: G40.909 Epilepsy, unspecified, not intractable, without status epilepticus (principal); G45.9 Transient cerebral ischemic attack, unspecified; E03.9 Hypothyroidism, unspecified; Z86.16 Personal history of COVID-19; F32.A Depression, unspecified; E78.5 Hyperlipidemia, unspecified; G47.33 Obstructive sleep apnea (adult) (pediatric); Z99.89 Dependence on other enabling machines and devices; M81.0 Age-related osteoporosis without current pathological fracture; N39.46 Mixed incontinence; Z79.82 Long term (current) use of aspirin
CPT/HCPCS: 36415; 36416; 70450; 70551; 71045; 80048; 80053; 80061; 80164; 80306; 81003; 82962; 83036; 84146; 85025; 85610; 85730; 87426; 92523; 92610; 93005; 93306; 93880; 96372; 96374; 96375; 97161; 97165; 99285; J1650; J1953; J3490; J7030

== ENCOUNTER 2022-05-05 08:42 | Outpatient (CLI) | payer MEDICARE, OTHER, SELFPAY ==
--- NOTE | 2022-05-05 08:52 | MM_ITS ---
WS: [id number] BILATERAL SCREENING DIGITAL BREAST TOMOSYNTHESIS MAMMOGRAM WITH CAD HISTORY: SCREENING COMPARISON: 09/15/2018, 03/12/2018 and 01/18/2016 Bilateral CC and MLO views with tomosynthesis and synthetic mammography submitted. Computer aided det ection analyzed. Breast composition: The breasts are heterogeneously dense, which may obscure small masses. No suspici ous masses, microcalcifications or architectural distortion. Benign calcifications and breast arteria l calcifications. Asymmetry seen on the LEFT MLO projection in the retroglandular fat is stable. MM/[place] [id number] IMPRESSION: BI-RADS: 2-Benign FOLLOW UP: 1 Year Follow-up
== END 2022-05-05 08:43 | disposition home or self-care (01) ==
LOC: RAD 08:44
PROVIDERS: PCP Nurse Practitioner Family; Visit Provider Nurse Practitioner Family
DX: Z12.31 Encounter for screening mammogram for malignant neoplasm of breast (principal)
CPT/HCPCS: 77063; 77067

== ENCOUNTER 2023-01-08 06:00 | Outpatient (RCR) | payer MEDICARE, OTHER, SELFPAY | END 2023-01-25 23:59 | disposition home or self-care (01) | LOC: SPT 06:00 | PROVIDERS: Visit Provider Student in an Organized Health Care Education/Training Program | DX: Z96.651 Presence of right artificial knee joint (principal); Z96.652 Presence of left artificial knee joint | CPT/HCPCS: 97110; 97161 ==

== ENCOUNTER 2023-01-26 06:00 | Outpatient (RCR) | payer MEDICARE, OTHER, SELFPAY | END 2023-02-12 23:59 | disposition home or self-care (01) | LOC: SPT 06:00 | PROVIDERS: Visit Provider Student in an Organized Health Care Education/Training Program | DX: Z47.1 Aftercare following joint replacement surgery (principal); Z96.653 Presence of artificial knee joint, bilateral | CPT/HCPCS: 97110 ==

== ENCOUNTER → 2023-05-04 08:49 | Outpatient (BNVA) | payer MEDICARE, OTHER, SELFPAY | PROVIDERS: Visit Provider Podiatrist Foot & Ankle Surgery | DX: M72.2 Plantar fascial fibromatosis (principal) | CPT/HCPCS: 99203 ==

== ENCOUNTER 2023-05-26 08:59 | Outpatient (CLI) | payer MEDICARE, OTHER, SELFPAY ==
--- NOTE | 2023-05-26 09:33 | MM_ITS ---
WS: [id number] VIEWS: MLO and CC views both breasts. 3D digital tomosynthesis is also included in this exam. Comparison made with prior exam of 01/18/2016, 02/06/2017, 03/12/2018, 09/15/2018, 05/05/2022.. Findings: There was no sign of mass, architectural distortion or suspicious calcification in either breast. The breasts are heterogeneously dense which may obscure small masses Impression: MM/[place] [id number] BI-RADS: 2-Benign FOLLOW-UP: 1 Year Follow-up This mammogram was also analyzed by the Computer Aided Detection System R2 Imag e Office Services Clerk.
== END 2023-05-26 09:00 | disposition home or self-care (01) ==
LOC: RAD 09:03 → MOBLMAM 09:24
PROVIDERS: PCP Nurse Practitioner Family; Visit Provider Nurse Practitioner Family
DX: Z12.31 Encounter for screening mammogram for malignant neoplasm of breast (principal)
CPT/HCPCS: 77063; 77067

== ENCOUNTER → 2023-06-10 10:22 | Outpatient (BNVA) | payer MEDICARE, OTHER, SELFPAY | PROVIDERS: PCP Nurse Practitioner Family; Visit Provider Podiatrist Foot & Ankle Surgery | DX: M72.2 Plantar fascial fibromatosis (principal) | CPT/HCPCS: 99213 ==

== ENCOUNTER → 2023-07-23 07:58 | Outpatient (BNVA) | payer MEDICARE, OTHER, SELFPAY | PROVIDERS: PCP Nurse Practitioner Family; Referring Provider Nurse Practitioner Family; Visit Provider Psychiatry & Neurology Neurology | DX: G40.909 Epilepsy, unspecified, not intractable, without status epilepticus (principal); E55.9 Vitamin D deficiency, unspecified; E07.9 Disorder of thyroid, unspecified | CPT/HCPCS: 36415; 80053; 80164; 82306; 82607; 82746; 83735; 83921; 84443; 85025; 99203 ==

== ENCOUNTER → 2023-07-24 08:33 | Outpatient (BNVA) | payer MEDICARE, OTHER, SELFPAY | PROVIDERS: PCP Nurse Practitioner Family; Visit Provider Nurse Practitioner Family | DX: L57.0 Actinic keratosis (principal); D22.5 Melanocytic nevi of trunk; L82.1 Other seborrheic keratosis; L81.4 Other melanin hyperpigmentation; L57.8 Other skin changes due to chronic exposure to nonionizing radiation | CPT/HCPCS: 17000; 99213 ==

== ENCOUNTER → 2023-09-03 07:39 | Outpatient (BNVA) | payer MEDICARE, OTHER, SELFPAY | PROVIDERS: PCP Nurse Practitioner Family; Visit Provider Psychiatry & Neurology Neurology | DX: R56.9 Unspecified convulsions (principal); G40.919 Epilepsy, unspecified, intractable, without status epilepticus | CPT/HCPCS: 95813 ==

== ENCOUNTER → 2023-10-01 10:55 | Outpatient (BNVA) | payer MEDICARE, OTHER, SELFPAY | PROVIDERS: PCP Nurse Practitioner Family; Visit Provider Psychiatry & Neurology Neurology | DX: G40.A19 Absence epileptic syndrome, intractable, without status epilepticus (principal); R94.01 Abnormal electroencephalogram [EEG] | CPT/HCPCS: 99212 ==

== ENCOUNTER 2023-12-03 02:20 | Inpatient (IN) | payer MEDICARE, OTHER, SELFPAY ==
[2023-12-03] VITALS (23 sets, daily range): BP systolic 124–178; BP diastolic 55–86; PULSE 64–102; RESP 15–27; TEMP 36.7–36.9; O2SAT 88–98; BMI 40.3; BMI 32.5
--- NOTE | 2023-12-03 02:26 | ED_ITS ---
Documented by User: Bhaskar Leon DO 12/03/23 06:00 HPI - Seizure 2 General: Chief Complaint: Seizure Stated Complaint: seizure, AMS Time Seen by Provider: 12/03/23 02:24 Limitations: altered mental status History of Present Illness: HPI Narrative: Patient presents to the ER by EMS from home with diagnosis of seizure. Patient had 2 seizures yesterday 1 about noon and the last 1 being about 1 AM about an hour and a half ago. Patient went to bed about noon not feeling good. Patient does have a history of seizures and is on Depakote. There is no history of falling or fevers. Patient is postictal appearing upon arrival to the ER. Patient will respond with yes no shaking of her head but will not verbally answer questions. Per the records patient has seen Dr. Crowley in the past for seizures. Per family in August they decreased her Depakote because it was causing her to be too jittery. Review of Systems 2 General: Reports: ROS unobtainable due to mental status PFSH ED 2 PFSH: Medical History Cerebrovascular accident Elevated blood pressure reading without diagnosis of hypertension Multiple neurological symptoms Status post administration of all doses of COVID-19 vaccine series Hypothyroidism Actinic keratoses Areas on face treated with liquid nitrogen 06/2021 COVID-19 ~04/11/22, s/p treatment with Paxlovid Mixed stress and urge urinary incontinence Depression Hyperlipidemia ELLIOTT (obstructive sleep apnea) On CPAP: Optimal pressure 8cm, prescribed 6-12cm auto-titrating Osteoporosis Epilepsy Plantar porokeratosis, acquired Surgical History History of oral surgery History of tonsillectomy History of total bilateral knee replacement Hx of hysterectomy Hx of lumpectomy History of bunionectomy Family History Sister , AT AGE 63 HEART ATTACK CAD (coronary artery disease) Denies family history of Clotting disorder Stroke Social History Smoking and tobacco/nicotine status: never used tobacco/nicotine Alcohol intake: never Substance/Drug Use: never Caregiver/support person: Yes (spouse) Household members: spouse Marital status: Current occupational status: retired Physical Exam 2 Const: COMMON NORMALS: no acute distress, average body habitus, healthy appearing, alert and well nourished HENMT: COMMON NORMALS: normocephalic, atraumatic, hearing grossly normal bilaterally, external ears normal, Normal external nose present, moist oral mucous membranes and oropharynx normal HEAD & SCALP: normocephalic and atraumatic NOSE: Normal external nose present EXTERNAL EAR: Yes external ears normal Neck/C-Spine: COMMON NORMALS: full ROM, no lymphadenopathy, supple, no meningeal signs and no JVD Chest: COMMONS NORMALS: normal inspection of the chest and normal palpation of entire chest wall Resp: COMMON NORMALS: normal respiratory effort, No retractions, No use of accessory muscles and clear to auscultation bilaterally AUSCULTATION: clear to auscultation bilaterally Cardio: COMMON NORMALS: no JVD, regular rate, regular rhythm, S1 normal heart sound present, S2 normal heart sound present, No gallops present (Cardio), No clicks present (Cardio), No murmurs present (Cardio) and No rub (Cardio) R ATE: regular rate RHYTHM: regular rhythm HEART SOUNDS: S1 normal heart sound present and S2 normal heart sound present GI: COMMON NORMALS: Normal to inspection, nondistended, normoactive bowel sounds present, Soft to palpation, non-tender, No hepatosplenomegaly present and no masses PALPATION: Yes Soft to palpation and Yes No hepatosplenomegaly present Neuro: SENSORIUM/ORIENTATION: Yes alert MENINGEAL SIGNS: Yes no meningeal signs Course 2 Vital Signs: Vital signs: Vital Signs Temperature 98.5 F 12/03/23 02:21 Pulse Rate 102 H 12/03/23 02:21 Respiratory Rate 18 12/03/23 02:21 Blood Pressure 156/86 12/03/23 02:21 Pulse Oximetry 92 12/03/23 02:21 Oxygen Delivery Me thod Room Air 12/03/23 02:21 MDM - Seizure MDM Narrative Medical decision making narrative: Lab work was obtained which revealed a prolactin of 23.27, valproic acid 40.1, CK of 445, TSH 4.44, otherwise pretty unremarkable. Dialysis pending, head CT showed no acute intracranial findings. During patient's stay here in ER she did not have any more seizures however she did remain postictal and confused and family does not think that they can take her home and adequately care for her in this state. Due to patient's elevation of her CK I will consult the hospitalist and see about getting her placed in observation for IV hydration. Differential Diagnosis Seizure Differential Diagnosis: Likely epileptic seizure Medical Records Attestation: I reviewed the patient's medical records. Lab Data Attestation: I reviewed the patient's lab results. 12/03/23 02:33 12/03/23 02:33 Labs: Radiology Impressions Head CT 12/03/23 03:19 IMPRESSION: 1. No acute intracranial findings. 2. Additional findings as above. Laboratory Results WBC 8.27 10^3/uL (3.29-11.43) 12/03/23 02:33 RBC 5.03 10^6/uL (3.85-5.65) 12/03/23 02:33 Hgb 14.70 g/dL (11.27-16.99) 12/03/23 02:33 Hct 43.9 % (36-47) 12/03/23 02:33 MCV 87.3 fl (85-98) 12/03/23 02:33 MCH 29.2 pg (27-33) 12/03/23 02:33 MCHC 33.5 g/dL (30-55) 12/03/23 02:33 RDW 12.5 % (12.1-15.1) 12/03/23 02:33 Plt Count 198 10^3/cmm (157-399) 12/03/23 02:33 MPV 9.8 fL (7.4-10.4) 12/03/23 02:33 Neut % (Auto) 84.1 % 12/03/23 02:33 Lymph % (Auto) 10.2 % 12/03/23 02:33 [place] % (Auto) 4.4 % 12/03/23 02:33 Eos % (Auto) 0.2 % 12/03/23 02:33 Baso % (Auto) 0.4 % 12/03/23 02:33 Neut # (Auto) 6.96 10^3/uL (1.8-7.7) 12/03/23 02:33 Lymph # (Auto) 0.8 10^3/uL (0.8-4.8) 12/03/23 02:33 [place] # (Auto) 0.4 10^3/uL (0.2-0.9) 12/03/23 02:33 Eos # (Auto) 0.0 10^3/uL (0.0-0.8) 12/03/23 02:33 Baso # (Auto) 0.0 10^3/uL (0.0-0.1) 12/03/23 02:33 Nucleated RBC % (auto) 0 % 12/03/23 02:33 Nucleated RBCs # 0.0 /100WBC 12/03/23 02:33 Sodium 139 mmol/L (136-145) 12/03/23 02:33 Potassium 3.9 mmol/L (3.5-5.1) 12/03/23 02:33 Chloride 103 mmol/L (98-107) 12/03/23 02:33 Carbon Dioxide 21 mmol/L (22-29) L 12/03/23 02:33 Anion Gap 18.9 (5-19) 12/03/23 02:33 BUN 9 mg/dL (8-23) 12/03/23 02:33 Creatinine 0.7 mg/dL (0.5-0.9) 12/03/23 02:33 GFR Calculation Not Reportable 12/03/23 02:33 Glucose 126 mg/dL (65-115) H 12/03/23 02:33 Calculated Osmolality 288 mOsm/kg (285-295) 12/03/23 02:33 Calcium 9.7 mg/dL (8.5-10.5) 12/03/23 02:33 Total Bilirubin 0.5 mg/dL (0.15-1.2) 12/03/23 02:33 AST 33 U/L (0-32) H 12/03/23 02:33 ALT 21 U/L (0-33) 12/03/23 02:33 Alkaline Phosphatase 78 U/L (35-105) 12/03/23 02:33 Creatine Kinase 445 U/L (26-192) H* 12/03/23 02:33 Total Protein 7.4 g/dL (6.6-8.7) 12/03/23 02:33 Albumin 4.6 g/dL (3.5-5.2) 12/03/23 02:33 Globulin 2.8 g/dL (1.3-4.6) 12/03/23 02:33 TSH 4.44 uIU/mL (0.27-4.20) H 12/03/23 02:33 Prolactin 23.27 ng/mL (4.8-23.3) 12/03/23 02:33 Valproic Acid 40.1 ug/mL (50-100) L 12/03/23 02:33 All radiology interpretation(s) finalized by discharge EKG Data EKG 1: Attestation: I personally reviewed and interpreted this EKG as follows: EKG interpretation date: 12/03/23 EKG interpretation time: 02:37 Prior EKG tracings: available for review Interpretation: Ventricular rate 96 bpm, PA interval 163, QRS duration 86, QTc of 415, sinus rhythm Discharge Plan Discharge Patient Disposition: Placed in Observation Clinical Impression: Generalized seizure, Postictal confusion Prescriptions: No Action alendronate [Fosamax] 70 mg tablet 70 mg PO ONCE vitamin A-vit C-vit E-zinc-Cu Tablet 2 tab PO BID Rx Instructions: administer with meals venlafaxine [Effexor XR] 75 mg capsule,extended release 24hr 75 mg PO DAILY esomeprazole magnesium 20 mg tablet,delayed release (DR/EC) 20 mg PO DAILY folic acid 1 mg tablet 1 mg PO DAILY Qty: 90 1RF divalproex 500 mg tablet,delayed release (DR/EC) 500 mg PO ONCE Qty: 120 4RF clonazepam [Klonopin] 0.5 mg tablet 0.25 mg PO BID Qty: 60 0RF Rx Instructions: 1-2 at bedtime for sleep and seizure prevention levothyroxine 88 mcg tablet 88 mcg PO DAILY rosuvastatin 10 mg tablet 10 mg PO DAILY aspirin 81 mg Tablet,Delayed Release (Dr/Ec) 81 mg PO DAILY Qty: 30 0RF Referrals: Rachel Constantino FNP [Primary Care Provider] - Patient Instructions: Opioid Safety, Pain Management Sign Out Sign Out Data: Patient Sign Out occurred on 12/03/23 at 06:50. Patient's care was discussed, and care was transferred from Bhaskar Leon DO to Ahsan Li DO. Coding Level of Care Code ED Well Site Drilling Engineer for Chg Fwd Documented by User: Ahsan Li DO 12/03/23 06:58 HPI - Seizure 2 General: Chief Complaint: Seizure Stated Complaint: seizure, AMS Time Seen by Provider: 12/03/23 02:24 PFSH ED 2 PFSH: Medical History Cerebrovascular accident Elevated blood pressure reading without diagnosis of hypertension Multiple neurological symptoms Status post administration of all doses of COVID-19 vaccine series Hypothyroidism Actinic keratoses Areas on face treated with liquid nitrogen 06/2021 COVID-19 ~04/11/22, s/p treatment with Paxlovid Mixed stress and urge urinary incontinence Depression Hyperlipidemia ELLIOTT (obstructive sleep apnea) On CPAP: Optimal pressure 8cm, prescribed 6-12cm auto-titrating Osteoporosis Epilepsy Plantar porokeratosis, acquired Surgical History History of oral surgery History of tonsillectomy History of total bilateral knee replacement Hx of hysterectomy Hx of lumpectomy History of bunionectomy Family History Sister , AT AGE 63 HEART ATTACK CAD (coronary artery disease) Denies family history of Clotting disorder Stroke Social History Smoking and tobacco/nicotine status: never used tobacco/nicotine Alcohol intake: never Substance/Drug Use: never Caregiver/support person: Yes (spouse) Household members: spouse Marital status: Current occupational status: retired Course 2 Vital Signs: Vital signs: Vital Signs Temperature 98.5 F 12/03/23 02:21 Pulse Rate 102 H 12/03/23 02:21 Respiratory Rate 18 12/03/23 02:21 Blood Pressure 156/86 12/03/23 02:21 Pulse Oximetry 92 12/03/23 02:21 Oxygen Delivery Me thod Room Air 12/03/23 02:21 MDM - Seizure MDM Narrative Medical decision making narrative: Lab work was obtained which revealed a prolactin of 23.27, valproic acid 40.1, CK of 445, TSH 4.44, otherwise pretty unremarkable. Dialysis pending, head CT showed no acute intracranial findings. During patient's stay here in ER she did not have any more seizures however she did remain postictal and confused and family does not think that they can take her home and adequately care for her in this state. Due to patient's elevation of her CK I will consult the hospitalist and see about getting her placed in observation for IV hydration Care assumed at change of shift. Patient has had several seizures in the last 12 to 18 hours. Given her uncontrolled seizures and postictal state will place on observation. Discussed with Dr. Crowley and was Dr. Arce orders written. Dr. Arce to admit Dr. Crowley to consult. Lab Data 12/03/23 02:33 12/03/23 02:33 Labs: Radiology Impressions Head CT 12/03/23 03:19 IMPRESSION: 1. No acute intracranial findings. 2. Additional findings as above. Laboratory Results WBC 8.27 10^3/uL (3.29-11.43) 12/03/23 02:33 RBC 5.03 10^6/uL (3.85-5.65) 12/03/23 02:33 Hgb 14.70 g/dL (11.27-16.99) 12/03/23 02:33 Hct 43.9 % (36-47) 12/03/23 02:33 MCV 87.3 fl (85-98) 12/03/23 02:33 MCH 29.2 pg (27-33) 12/03/23 02:33 MCHC 33.5 g/dL (30-55) 12/03/23 02:33 RDW 12.5 % (12.1-15.1) 12/03/23 02:33 Plt Count 198 10^3/cmm (157-399) 12/03/23 02:33 MPV 9.8 fL (7.4-10.4) 12/03/23 02:33 Neut % (Auto) 84.1 % 12/03/23 02:33 Lymph % (Auto) 10.2 % 12/03/23 02:33 [place] % (Auto) 4.4 % 12/03/23 02:33 Eos % (Auto) 0.2 % 12/03/23 02:33 Baso % (Auto) 0.4 % 12/03/23 02:33 Neut # (Auto) 6.96 10^3/uL (1.8-7.7) 12/03/23 02:33 Lymph # (Auto) 0.8 10^3/uL (0.8-4.8) 12/03/23 02:33 [place] # (Auto) 0.4 10^3/uL (0.2-0.9) 12/03/23 02:33 Eos # (Auto) 0.0 10^3/uL (0.0-0.8) 12/03/23 02:33 Baso # (Auto) 0.0 10^3/uL (0.0-0.1) 12/03/23 02:33 Nucleated RBC % (auto) 0 % 12/03/23 02:33 Nucleated RBCs # 0.0 /100WBC 12/03/23 02:33 Sodium 139 mmol/L (136-145) 12/03/23 02:33 Potassium 3.9 mmol/L (3.5-5.1) 12/03/23 02:33 Chloride 103 mmol/L (98-107) 12/03/23 02:33 Carbon Dioxide 21 mmol/L (22-29) L 12/03/23 02:33 Anion Gap 18.9 (5-19) 12/03/23 02:33 BUN 9 mg/dL (8-23) 12/03/23 02:33 Creatinine 0.7 mg/dL (0.5-0.9) 12/03/23 02:33 GFR Calculation Not Reportable 12/03/23 02:33 Glucose 126 mg/dL (65-115) H 12/03/23 02:33 Calculated Osmolality 288 mOsm/kg (285-295) 12/03/23 02:33 Calcium 9.7 mg/dL (8.5-10.5) 12/03/23 02:33 Total Bilirubin 0.5 mg/dL (0.15-1.2) 12/03/23 02:33 AST 33 U/L (0-32) H 12/03/23 02:33 ALT 21 U/L (0-33) 12/03/23 02:33 Alkaline Phosphatase 78 U/L (35-105) 12/03/23 02:33 Creatine Kinase 445 U/L (26-192) H* 12/03/23 02:33 Total Protein 7.4 g/dL (6.6-8.7) 12/03/23 02:33 Albumin 4.6 g/dL (3.5-5.2) 12/03/23 02:33 Globulin 2.8 g/dL (1.3-4.6) 12/03/23 02:33 TSH 4.44 uIU/mL (0.27-4.20) H 12/03/23 02:33 Prolactin 23.27 ng/mL (4.8-23.3) 12/03/23 02:33 Valproic Acid 40.1 ug/mL (50-100) L 12/03/23 02:33 Discharge Plan Discharge Patient Disposition: Placed in Observation Clinical Impression: Generalized seizure, Postictal confusion Prescriptions: No Action alendronate [Fosamax] 70 mg tablet 70 mg PO ONCE vitamin A-vit C-vit E-zinc-Cu Tablet 2 tab PO BID Rx Instructions: administer with meals venlafaxine [Effexor XR] 75 mg capsule,extended release 24hr 75 mg PO DAILY esomeprazole magnesium 20 mg tablet,delayed release (DR/EC) 20 mg PO DAILY folic acid 1 mg tablet 1 mg PO DAILY Qty: 90 1RF divalproex 500 mg tablet,delayed release (DR/EC) 500 mg PO ONCE Qty: 120 4RF clonazepam [Klonopin] 0.5 mg tablet 0.25 mg PO BID Qty: 60 0RF Rx Instructions: 1-2 at bedtime for sleep and seizure prevention levothyroxine 88 mcg tablet 88 mcg PO DAILY rosuvastatin 10 mg tablet 10 mg PO DAILY aspirin 81 mg Tablet,Delayed Release (Dr/Ec) 81 mg PO DAILY Qty: 30 0RF Referrals: Rachel Constantino FNP [Primary Care Provider] - Patient Instructions: Opioid Safety, Pain Management Sign Out Sign Out Data: Patient Sign Out occurred on 12/03/23 at 06:50. Patient's care was discussed, and care was transferred from Bhaskar Leon DO to Ahsan Li DO. Coding Level of Care Code ED Well Site Drilling Engineer for Vivien Rabago
--- NOTE | 2023-12-03 02:28 | ECG_ITS ---
[facility] Test Date: 2023-12-03 Pat Name: Rox Denson Department: Room: Gender: Female [employer] Air [employer]: : 1950 Requested By: Bhaskar Leon Order Number: [id number] Aman MD: Brian Hayes M.D. Measurements Intervals [place] Rate: 96 P: 53 SD: 163 QRS: 8 QRSD: 86 T: 38 QT: 362 QTc: 458 Interpretive Statements SINUS RHYTHM LOW QRS VOLTAGE IN PRECORDIAL LEADS [QRS DEFLECTION < 1.0 mV IN CHEST LEADS] POSSIBLE ANTERIOR MYOCARDIAL INFARCTION , PROBABLY OLD [30 ms Q WAVE IN V3/V4, OR R < 0.2 mV IN V4] Compared to ECG 04/21/2022 09:19:52 Myocardial infarct finding now present Sinus arrhythmia no longer present Electronically Signed On 12-03-2023 14:45:57 INTERCHANGE AGENT by Brian Hayes M.D. [email or web address]
[2023-12-03 02:37] LABS: Basophils % 0.4 %; Eosinophils % 0.2 %; Hematocrit 43.9 % (36-47); Lymphocytes # 0.8 10^3/uL (0.8-4.8); Lymphocytes % 10.2 %; Mean Corpuscular HGB Conc 33.5 g/dL (30-55); Mean Corpuscular Hemoglobin 29.2 pg (27-33); Mean Corpuscular Volume 87.3 fl (85-98); Mean Platelet Volume 9.8 fL (7.4-10.4); Monocytes # 0.4 10^3/uL (0.2-0.9); Monocytes % 4.4 %; Neutrophils # 6.96 10^3/uL (1.8-7.7); Neutrophils % 84.1 %; Nucleated Red Blood Cells % 0 %; Platelet Count 198 10^3/cmm (157-399); Red Blood Count 5.03 10^6/uL (3.85-5.65); Red Cell Distribution Width 12.5 % (12.1-15.1); White Blood Count 8.27 10^3/uL (3.29-11.43)
[2023-12-03 02:59] LABS: Valproic Acid Level 40.1 ug/mL (50-100)
[2023-12-03 03:13] LABS: Alanine Aminotransferase 21 U/L (0-33); Albumin Level 4.6 g/dL (3.5-5.2); Alkaline Phosphatase 78 U/L (35-105); Anion Gap 18.9 (5-19); Aspartate Amino Transferase 33 U/L (0-32); Blood Urea Nitrogen 9 mg/dL (8-23); Calcium 9.7 mg/dL (8.5-10.5); Carbon Dioxide 21 mmol/L (22-29); Chloride 103 mmol/L (98-107); Creatinine Clr Calc Pharmacy 80.0258; Globulin 2.8 g/dL (1.3-4.6); Glucose 126 mg/dL (65-115); Osmolality Calculated 288 mOsm/kg (285-295); Potassium 3.9 mmol/L (3.5-5.1); Sodium 139 mmol/L (136-145); Total Bilirubin 0.5 mg/dL (0.15-1.2); Total Protein 7.4 g/dL (6.6-8.7)
[2023-12-03 03:14] LABS: Creatine Phosphokinase 445 U/L (26-192)
[2023-12-03 03:15] LABS: Prolactin 23.27 ng/mL (4.8-23.3)
[2023-12-03 03:17] LABS: Thyroid Stimulating Hormone 4.44 uIU/mL (0.27-4.20)
--- NOTE | 2023-12-03 03:19 | CTR_ITS ---
PROCEDURE INFORMATION: Exam: CT Head Without Contrast Exam date and time: 12/03/2023 3:33 AM Age: 73 years old Clinical indication: Altered mental status/memory loss and other: Seizure; Additional info: Seizure, AMS TECHNIQUE: Imaging protocol: Computed tomography of the head without contrast. Radiation optimization: All CT scans at this facility use at least one of these dose optimization techniques: automated exposure control; mA and/or kV adjustment per patient size (includes targeted exams where dose is matched to clinical indication); or iterative reconstruction. COMPARISON: MR head wo con* [id number] 04/22/2022 3:35 PM RADIATION DOSE METRICS: Total DLP (mGy-cm): 1070 FINDINGS: Brain: Moderate to severe calcified atherosclerotic disease of the anterior intracranial vasculature. Unchanged bilateral basal ganglia hypodensities. Unchanged periventricular white matter hypoattenuation. Dystrophic calcifications of the pineal gland. Chronic involution changes of age. Cerebral ventricles: Choroid plexuses calcifications. Pituitary gland and sella: Redemonstrated partial empty sella. Paranasal sinuses: Visualized sinuses are unremarkable. No fluid levels. Mastoid air cells: Visualized mastoid air cells are well aerated. Bones/joints: Unremarkable. No acute fracture. Soft tissues: Unremarkable. CT/CT head wo con* [id number] IMPRESSION: 1. No acute intracranial findings. 2. Additional findings as above.
[2023-12-03] MEDS: sodium chloride 0.9% 1,000 ML 999 ML IV (03:32)
--- NOTE | 2023-12-03 07:29 | PC.NURSE ---
pt had episode of urinary incontinence. x2 nurse assist to change and clean pt & complete full bed change. gown and personal brief placed on patient.
[2023-12-03] MEDS: enoxaparin 40 mg/0.4 mL Syringe SUBCUT (08:02)
[2023-12-03] MEDS: sodium chloride 0.9% 1,000 ML 75 ML IV ×2 (08:02→11:07)
[2023-12-03] MEDS: atorvastatin 40 mg Tablet PO (11:06)
[2023-12-03] MEDS: acetaminophen 325 mg Tablet 650 MG PO ×3 (11:06→23:36)
[2023-12-03] MEDS: aspirin 81 mg EC Tablet PO (11:06)
[2023-12-03] MEDS: CLONazepam 0.5 mg Tablet PO ×2 (11:06→21:22)
[2023-12-03] MEDS: levothyroxine 88 mcg Tablet PO (11:06)
[2023-12-03] MEDS: valproic acid inj 500 MG in sodium chloride 0.9% 50 ML 55 MG IV (11:07)
--- NOTE | 2023-12-03 11:37 | P.HP_ITS ---
Providers/Chief Complaint 2 Admitting Physician: Rhonda Arce MD Primary Care Provider: FRANCESCO Molina Chief Complaint: seizure, AMS History of Present Illness Rox Denson is a 73 year old female with past medical history of seizure disorder with history of grand mal seizures who was brought into the ER today by the because of having a generalized seizure yesterday afternoon and then again earlier last night. As per the patient has been having multiple episodes of diarrhea till couple of weeks ago for around 3 weeks and then she was away with the grandchildren for 2 weeks which has made her very tired and usually when she is tired she has seizures. As per the patient has had around 4 seizures in the last 50 years. Episodes are not associated with fall. When seen on the floor patient was drowsy but waking up to have slight verbal conversation with episodes of confusion. During the EEG again later in the day patient was found to have status epilepticus for which she has been transferred to ICU. Review of Systems 2 General: Reports: ROS unobtainable due to mental status Medications/Allergies Home Medications Medication Instructions Recorded Confirmed Last Taken Type alendronate 70 mg tablet (Fosamax) 70 mg PO DAILY 10/03/19 12/03/23 11/30/23 History rosuvastatin 10 mg tablet 10 mg PO QPM 04/21/22 12/03/23 12/02/23 History berberine-herbal comb no.18 capsule 1 cap PO DAILY 12/03/23 12/03/23 12/02/23 History calcium 250 mg-D3 400 1 tab PO TID 12/03/23 12/03/23 12/02/23 History unit-magnesium 40 ho-[id number]-Tg-copper-patel tablet cetirizine 10 mg tablet (Zyrtec) 10 mg PO DAILY 12/03/23 12/03/23 12/02/23 History clonazepam 0.5 mg tablet (Klonopin) See Rx Instructions .Route .COMPLEX 12/03/23 12/03/23 12/02/23 History divalproex 500 mg tablet,delayed 500 mg PO QPM 12/03/23 12/03/23 12/02/23 History release folic acid 1 mg tablet 1 mg PO QPM 12/03/23 12/03/23 12/02/23 History lactobacillus combination no.4 3 3,000 mmu cells PO DAILY 12/03/23 12/03/23 12/02/23 History billion cell capsule (Probiotic) levetiracetam 750 mg tablet 750 mg PO BEDTIME 12/03/23 12/03/23 12/02/23 History levothyroxine 50 mcg tablet 50 mcg PO QAM 12/03/23 12/03/23 12/02/23 History xhmsvspd-bmc-yscn-FA-Ca carb-vit K 1 tab PO TID 12/03/23 12/03/23 12/02/23 History 18 mg iron-400 mcg-500 mg tablet turmeric 400 mg capsule 400 mg PO QAM 12/03/23 12/03/23 12/02/23 History venlafaxine 37.5 mg 37.5 mg PO DAILY 12/03/23 12/03/23 12/02/23 History capsule,extended release 24 hr Allergies Allergy/AdvReac Type Severity Reaction Status Date / Time sulfacetamide Allergy Intermediate ADR-Itching Verified 12/03/23 02:27 Latex, Natural Rubber Allergy Unknown Verified 12/03/23 03:12 PFSH Acute 2 PFSH: Medical History (Updated 12/03/23 @ 14:30 by Haroon Castillo MD) Hypothyroidism ELLIOTT (obstructive sleep apnea) On CPAP: Optimal pressure 8cm, prescribed 6-12cm auto-titrating Cerebrovascular accident Elevated blood pressure reading without diagnosis of hypertension Multiple neurological symptoms Status post administration of all doses of COVID-19 vaccine series Actinic keratoses Areas on face treated with liquid nitrogen 06/2021 COVID-19 ~04/11/22, s/p treatment with Paxlovid Mixed stress and urge urinary incontinence Depression Hyperlipidemia Osteoporosis Epilepsy Plantar porokeratosis, acquired Surgical History History of oral surgery History of tonsillectomy History of total bilateral knee replacement Hx of hysterectomy Hx of lumpectomy History of bunionectomy Family History Sister , AT AGE 63 HEART ATTACK CAD (coronary artery disease) Denies family history of Clotting disorder Stroke Social History Smoking and tobacco/nicotine status: never used tobacco/nicotine Alcohol intake: never Substance/Drug Use: never Caregiver/support person: Yes (spouse) Household members: spouse Marital status: Current occupational status: retired Vitals/I&O/Wt Last Vital Signs Temp 98.2 F 12/03/23 08:45 Pulse 84 12/03/23 08:45 Resp 17 12/03/23 08:45 BP 165/81 12/03/23 08:45 Pulse Ox 93 12/03/23 08:45 O2 Del Method Room Air 12/03/23 08:45 12/02/23 12/03/23 12/03/23 22:59 06:59 14:59 Intake Total 1000 / 1000 231.25 / 231.25 Balance 1000 / 1000 231.25 / 231.25 Weight last 48 hrs Weight 91.671 kg Weight 113.398 kg Physical Exam 2 Narrative: General: No acute distress,, drowsy possibly postictal, at bedside HEENT: PERRLA, pupils bilaterally equal and reactive Chest: Normal vesicular breath sounds, no added sounds, equal good air entry bilaterally CVS: S1-S2 regular, no murmurs, no tachycardia, no gallops, no rubs Abdomen: Soft, nontender, no organomegaly, bowel sounds present Neuro: No focal deficits, no facial deformity, Data 12/03/23 02:33 12/03/23 02:33 A&P Assessment and plan (1) Status epilepticus: Appreciate neurology recommendations. Seen at bedside EEG. Found to have low valproic acid levels. CT head negative for any acute abnormality. TSH mildly elevated. Check respiratory viral panel, vitamin B12 levels, urine drug screen, urinalysis. Patient does give history of diarrhea recently. Will continue to monitor as needed will do stool studies. Check urine bacterial antigen. Plan for loading with Keppra followed by 500 mg twice daily along with the Depakote 250 mg twice daily. Patient already got a bolus of Depakote during the day. IV Ativan 1 g every 6 hours as needed for seizure. Seizure precautions, fall precaution. Transfer to ICU. Keep n.p.o. except medications and awake. Otherwise we will transition all medications IV. Continue with normal saline at 75 cc/h. Stewart catheterization (2) Postictal confusion: (3) Generalized seizure: (4) ELLIOTT (obstructive sleep apnea): Plan Transfer to ICU. Full code N.p.o. except meds Protonix for PUD prophylaxis Lovenox for DVT prophylaxis Attestations 2 Medical Necessity Statement*: Requires admission for more than 2 midnights for management of status epilepticus in a patient with history of seizure disorder Critical Care Time: The high probability of a clinically significant, sudden or life threatening deterioration of the patient's [neurological] system(s) required my full and direct attention, intervention and personal management. The critical care time is as shown. This time is in addition to time spent performing any reported procedures but includes the following: [x] Data and vital sign review and interpretation [x] Patient assessment, examination and intervention [x] Documentation [x] Medication orders and management Critical Care Time (min): 50 Coding Level of Care Code Critical Care >/= 30 minutes Critical care time (in minutes): 50 The high probability of a clinically significant, sudden or life threatening deterioration, as referenced in this documentation, required my full and direct attention, intervention and personal management. The critical care time shown is in addition to time spent performing any reported separately billable procedures and includes the following: [x] Data and vital sign review and interpretation [x ] Patient assessment, examination and intervention [x] Medication orders and management [x] Patient/Family updates as able [x] Care Coordination and Documentation. Diagnoses Status epilepticus G40.901 Postictal confusion F05 Generalized seizure R56.9 ELLIOTT (obstructive sleep apnea) G47.33
--- NOTE | 2023-12-03 11:56 | P.PCN_ITS ---
Documented by User: Brie Cline 12/04/23 08:54 Procedure/Consent Procedure Narrative: Per ER admission note 12/03/2023 0226: Patient presents to the ER by EMS from home with diagnosis of seizure. Patient had 2 seizures yesterday 1 about noon and the last 1 being about 1 AM about an hour and a half ago. Patient went to bed about noon not feeling good. Patient does have a history of seizures and is on Depakote. There is no history of falling or fevers. Patient is postictal appearing upon arrival to the ER. Patient will respond with yes no shaking of her head but will not verbally answer questions. Per the records patient has seen Dr. Crowley in the past for seizures. Per family in August they decreased her Depakote because it was causing her to be too jittery. Patient has had several seizures in the last 12 to 18 hours. Given her uncontrolled seizures and postictal state will place on observation. Discussed with Dr. Crowley and was Dr. Arce orders written. Dr. Arce to admit Dr. Crowley to consult. 09/03/23 EEG impression: Abnormal awake, stage I and stage II sleep 75-minute surface EEG recording secondary to interictal activity seen during wakefulness, drowsiness and sleep consisting of frontally predominant spike and slow wave and polyspike and slow wave activity seen synchronously over the left and right hemispheres lasting 1 to 2 seconds. 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 Subclinical status epilepticus 12/03/2023 with abnormal continuous video surface EEG recording secondary to generalized frontally predominant 3 Hz spike and slow wave activity Abnormal awake, stage I and stage II sleep 75-minute surface EEG recording 09/03/2023 secondary to interictal activity seen during wakefulness, drowsiness and sleep consisting of frontally predominant spike and slow wave and polyspike and slow wave activity seen synchronously over the left and right hemispheres lasting 1 to 2 seconds. 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 EEG Routine Details of Procedure EEG 86928- Ext Monitoring 40-60 Min: 36826 (EEG Ext Monitoring 40-60 Min) EEG 23741 61-119 minutes: 93554 Documented by User: Cesar Crowley MD 12/04/23 13:05 Procedure/Consent Procedure Narrative: Per ER admission note 12/03/2023 0226: Patient presents to the ER by EMS from home with diagnosis of seizure. Patient had 2 seizures yesterday 1 about noon and the last 1 being about 1 AM about an hour and a half ago. Patient went to bed about noon not feeling good. Patient does have a history of seizures and is on Depakote. There is no history of falling or fevers. Patient is postictal appearing upon arrival to the ER. Patient will respond with yes no shaking of her head but will not verbally answer questions. Per the records patient has seen Dr. Crowley in the past for seizures. Per family in August they decreased her Depakote because it was causing her to be too jittery. Patient has had several seizures in the last 12 to 18 hours. Given her uncontrolled seizures and postictal state will place on observation. Discussed with Dr. Crowley and was Dr. Arce orders written. Dr. Arce to admit Dr. Crowley to consult. 09/03/23 EEG impression: Abnormal awake, stage I and stage II sleep 75-minute surface EEG recording secondary to interictal activity seen during wakefulness, drowsiness and sleep consisting of frontally predominant spike and slow wave and polyspike and slow wave activity seen synchronously over the left and right hemispheres lasting 1 to 2 seconds. 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 Subclinical status epilepticus 12/03/2023 with abnormal continuous video surface EEG recording secondary to generalized frontally predominant 3 Hz spike and slow wave activity Abnormal awake, stage I and stage II sleep 75-minute surface EEG recording 09/03/2023 secondary to interictal activity seen during wakefulness, drowsiness and sleep consisting of frontally predominant spike and slow wave and polyspike and slow wave activity seen synchronously over the left and right hemispheres lasting 1 to 2 seconds. 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 EEG TEMPLATE: This is a 19 channel continuous video surface EEG recording utilizing the [employer] software with surface and EKG electrodes. The procedure was performed utilizing the international 10-20 system. Patient name: Rox Denson Date of : 1950 Patient age [age] years old Identification number: [id number] Referring Physician: Cesar Crowley MD EEG#: EEG Start time: EEG End time: 18:43:33 Duration of study: Recording time reported 4 hours 59 minutes and 28 seconds. 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 Intermittent low voltage beta activity was seen centrally and anteriorly. The alpha activity was symmetrical and reactive to eye opening. Intermittently during the recording the record was partially obscured by muscle and motion artifact. Following administration of Ativan 1 mg and IV Depacon 500 mg IV load the patient was intermittently coherent and during this time the patient then fell asleep briefly and then regained consciousness briefly and was asking about what the EEG study was revealing at 14:15:13 p.m. followed by the patient falling asleep began at 14:16:12. At this time, the background rhythm consisted of approxima tely 8 Hz poorly sustained alpha activity posteriorly intermixed with generalized 4 to 7 Hz theta activity was seen over the left and right hemispheres. This activity was later intermixed with generalized moderate voltage delta activity. Intermittent vertex waves and sleep spindles were seen synchronously over the parasagittal regions. As a result of the patient's continued subclinical status epilepticus, patient was transferred to the intensive care unit bed #5 and IV Keppra load was given in the intensive care unit at 1000 mg x 1 dose followed by 500 mg IV every 12 hours. At 16:05:30 the EEG continues to reveal subclinical status epilepticus consisting of generalized rhythmic frontally predominant moderate voltage 3 to 4 Hz spike and slow wave activity while the IV Keppra was infusing at 16:33:37, there were burst of frontally predominant spike and slow wave activity at a frequency of 4 Hz associated with intermittent decrement of the background rhythm. After several minutes the patient's EEG background improved tremendously with resolution of the subclinical status epilepticus although some intermittent burst of spike and wave activity lasting for 1 to 2 seconds was still seen on the patient's surface EEG recordings and therefore patient was continued on continuous video surface EEG monitoring to observe for any recurrent subclinical status epilepticus during anticonvulsant medication adjustments. At 18 4333 the patient disconnected the EEG electrodes and therefore the continuous video surface EEG monitoring was discontinued. Plans were put in place to repeat a routine surface EEG recording on 12/04/2023 to assess for any recurrent subclinical status epilepticus. Interictal activity: Subclinical status epilepticus consisting of moderate voltage frontally pred ominant rhythmic 3 to 4 Hz spike and slow wave activity seen synchronously over the left and right hemispheres Ictal activity: Subclinical status epilepticus consisting of moderate voltage frontally predominant rhythmic 3 to 4 Hz spike and slow wave activity seen synchronously over the left and right hemispheres Impression: This is an markedly abnormal awake, stage I and stage II sleep approximately 3 hours continuous video surface EEG monitoring recording secondary to Subclinical status epilepticus consisting of moderate voltage frontally predominant rhythmic 3 to 4 Hz spike and slow wave activity seen synchronously over the left and right hemispheres. Note: Prior to the patient discontinuing the study there was improvement in the patient's recording with resolution of the status epilepticus although the recording remain abnormal secondary to intermittent burst of frontally predominant 3 to 4 Hz spike and slow wave activity seen synchronously over the left and right hemispheres lasting 1 to 2 seconds. Clinical correlation: The above findings consistent with the patient's history of intractable generalized epilepsy and subclinical status epilepticus. Note: The patient was continued on IV Depacon 250 mg every 8 hours, IV Keppra 500 mg IV every 12 hours, Klonopin 0.5 mg p.o. nightly and Ativan 1 mg IV every 6 hours as needed for clinical or subclinical seizures. And the patient was scheduled for repeat routine video surface EEG recording on 12/04/2023. Physician name/Signature: Cesar Crowley MD learning support services director/Signature: Brie Wiley
[2023-12-03 12:40] LABS: Iron 58 ug/dL (37-145); Percent Saturation 18.8 % (20-50); Total Iron Binding Capacity 308 mcg/dl; Unsaturated Iron Binding 250 ug/dL (112-347)
[2023-12-03 12:57] LABS: Vitamin B12 1653 pg/mL (232-1245)
[2023-12-03] MEDS: LORazepam 2 mg/mL INJ 10 mL MDV 1 MG IVP (14:15)
--- NOTE | 2023-12-03 15:17 | PC.PHAR ---
VERIFIED WITH PHARMACY PT HAD NEW RX FOR LEVETIRACETAM 750 MG 1 TABLET AT BEDTIME. PT DID RED HAT OPEN STACK ADMINISTRATOR AND IS DUE TO HAVE FILLED RIGHT NOW. 12/03/23
[2023-12-03 15:28] LABS: Free T4 Free Thyroxine 1.02 ng/dL (0.82-1.77); T3 Free 2.2 PG/ML (2.0-4.4)
--- NOTE | 2023-12-03 16:00 | PC.NURSE ---
Pt arrives to ICU from [facility]. No physical seizure activity noted. EEG leads loose. public works technician at bedside.
[2023-12-03] MEDS: pantoprazole 40 mg SDV IVP (16:44)
[2023-12-03] MEDS: levETIRAcetam 1,000 MG/100 ML PREMIX 400 MG IV (16:44)
[2023-12-03 16:51] LABS: Adenovirus Not Detected (NOT DETECT); Chlamydia Pneumoniae Not Detected (NOT DETECT); Coronavirus 229E,HKU1,NL63,OC4 Not Detected (NOT DETECT); Human Metapneumovirus Not Detected (NOT DETECT); Human Rhinovirus/Enterovirus Not Detected (NOT DETECT); Influenza A Not Detected (NOT DETECT); Influenza A H1 Not Detected (NOT DETECT); Influenza A H1-2009 Not Detected (NOT DETECT); Influenza A H3 Not Detected (NOT DETECT); Influenza B Not Detected (NOT DETECT); Mycoplasma Pneumoniae Not Detected (NOT DETECT); Parainfluenza Virus Type 1 Not Detected (NOT DETECT); Parainfluenza Virus Type 2 Not Detected (NOT DETECT); Parainfluenza Virus Type 3 Not Detected (NOT DETECT); Parainfluenza Virus Type 4 Not Detected (NOT DETECT); Respiratory Syncytial Virus A Not Detected (NOT DETECT); Respiratory Syncytial Virus B Not Detected (NOT DETECT); SARS-COV-2 Not Detected (NOT DETECT)
[2023-12-03 17:18] LABS: Add Urine Microscopic? NO; Charge for UA Resulting for Rev
--- NOTE | 2023-12-03 17:23 | PM.CONSULT ---
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 The patient was initially evaluated in the outpatient [facility] neurology clinic on 07/23/2023. Patient's seizures are described as altered awareness without warning followed by postevent sleeping for hours. According to the , the patient has experienced experienced grand mal seizures in the past but her last grand mal seizure was in 2004. According to the patient, She was tried on Celontin and phenobarbital and some other anticonvulsant medication in the past but she was later switched to Depakote which markedly improved her seizures. Patient states that she was on 1000 mg a day but she experienced severe tremors involving her head neck and hands and body and therefore the Depakote was decreased back to 500 mg at bedtime. The patient stated that she did well and did not experience any seizures until she experienced COVID-19 infection in March 2022. Patient stated that she had completed the treatment for COVID-19 pneumonia but was experiencing dehydration and forgot to take her Depakote. The patient was in the emergency room going to the bathroom and the witnessed the patient experiencing staring with upward deviation of her eyes. He stated that he called his and laid her down there was no trauma. Patient was reported to experience the seizure-like episode for a few seconds followed by postevent sleeping for hours. The patient was hospitalized. Labs obtained on 04/23/2020 to review for CBC and comprehensive metabolic panel were unrevealing. Cholesterol and triglyceride levels were reported to be elevated on 04/22/2022. And on 04/21/2022 trough Depakote level was subtherapeutic at 24.7. Head MRI was obtained on 04/22/2022 and revealed a few teeny lacunar infarctions in the basal ganglia and moderate symmetrical atrophy involving the temporal lobes and hippocampal formations. Carotid duplex study performed on 04/22/2022 revealed mild plaque in the carotid bulbs and proximal internal carotid arteries but less than 50% stenosis. Head CT scan performed on 04/21/2022 revealed findings similar to those reported on head MRI performed on 04/22/2022. Since that time the patient stated she has been doing well. I recommended the patient undergo a surface EEG study to assess for subclinical seizure activity as well as obtain lab today for trough Depakote level, TSH, vitamin D, magnesium, CBC, SGOT, SGPT, LDH, ammonia level. Also I recommended the patient's start a multivitamin 1 p.o. daily and start folate 1 mg p.o. daily since patient is on Depakote. Surface EEG recording was performed on 09/03/2023. This study was abnormal secondary to burst of frontally predominant synchronous polyspike and slow wave activity seen over the left and right hemispheres. The patient was instructed to continue Depakote ER 500 mg p.o. nightly. Keppra XR 750 mg was prescribed at bedtime. But, the patient stated that she was concerned about potential side effects of Keppra and therefore she never started the medication. The patient stated that she attempted to contact [facility] neurology clinic several times but was unable to leave a message for the neurology clinic. The patient presents for reassessment the results of her EEG study were discussed in detail with her and her . The patient again informed me that she was reluctant to take Keppra therefore I recommended adding a low-dose of Klonopin at night for seizure prophylaxis and sleep especially since she reports insomnia. Potential side effects of Klonopin were discussed with the patient and her . The patient agreed with this plan. Patient also underwent lab which revealed a trough Depakote level of 70.0 which was therapeutic. TSH was decreased to 0.11 (normal equals 0.27-4.2). CBC, comprehensive metabolic panel, liver profile, vitamin D, magnesium, B12, folate and methylmalonic acid were within normal limits. The patient was encouraged to follow-up with her family physician regarding her TSH level. Also I recommended repeating the patient's EEG on return visit in 4 months or sooner if needed. The patient presented to the [facility] emergency room on 12/03/2023 after experiencing 2 grand mal seizures over 12 hours. The first seizure occurred on 12/02/2023 at 6 PM and lasted for approximately 2 minutes followed by continued inattention followed by continued confusion. The second seizure occurred at 2 AM on 12/03/2023 with continued confusion and therefore the patient was brought to [facility] emergency room. According to the , the patient had been experiencing GI upset and diarrhea for the 3 days and ran out of the Klonopin 2 days prior to presenting to the emergency room. I was contacted by Dr. Li at approximately 7 AM on 12/03/2023. I evaluated the patient on [facility] floor room 278 bed #2. The patient was confused but able to answer some questions. Her examination was nonfocal. Surface EEG recording was ordered and patient was discovered to be experiencing subclinical status epilepticus and therefore she was continued on continuous video surface EEG monitoring. I spoke with the admitting hospitalist and patient was transferred to the intensive care unit. Patient was also changed from oral Depakote to IV Depacon and given 500 mg IV load x 1 dose followed by 250 mg IV every 8 hours. I spoke with the at great lengths regarding adding an additional medication. The agreed to start the IV Keppra since in my medical opinion with a reasonable degree of medical certainty, would be the next appropriate step for intractable generalized epilepsy. Patient was also given Ativan 1 mg IV x 1 dose with some improvement in her EEG although her EEG remained abnormal. Patient was transferred to the intensive care unit for close observation and continued on continuous video surface EEG monitoring in the ICU. The Keppra was not started until the patient arrived in the intensive care unit and I stated the patient bedside until the IV Keppra was infused and the patient displayed improvement in her continuous video surface EEG recordings with resolution of these subclinical status epilepticus and improvement in her mentation. She was able to communicate with her family. Occasionally some occasional brief burst of generalized frontally predominant semirhythmic delta/theta activity was seen lasting for 1 to 2 seconds without obvious clinical correlation. The patient was continued on intravenous Depacon 250 mg every 8 hours and intravenous Keppra 1 g IV load followed by 500 mg IV every 12. Patient will have trough Depakote level performed around 10 AM on 12/04/2023 prior to her 10 AM dose as scheduled for 12/04/2023. The patient will be continued on seizure precautions and Ativan prescribed 1 mg IV every 6 hours if needed for seizures. The family will bring the patient's CPAP to be worn at night during sleep. Drug allergies: Sulfonamide antibiotics which resulted in itching Current medications: Depakote ER 500 mg p.o. nightly for seizure prophylaxis Crestor 10 mg p.o. daily Effexor ER 75 mg p.o. daily Aspirin 81 mg p.o. daily Fosamax 70 mg every Thursday Synthroid 88 mcg p.o. daily Areds Eyedrops twice a day for macular degeneration Multivitamin with Vitamin A/vitamin C/vitamin D/zinc/copper 2 tablets p.o. twice daily Past medical history: Intractable epilepsy since childhood Macular degeneration (Addressed by ophthalmology) Hypothyroidism Hearing loss with bilateral hearing aids Osteoporosis Hyperlipidemia COVID-19 infection March 2022 Past anticonvulsant medications: Celontin, phenobarbital Patient reports being tried on other anticonvulsant medications but could not recall the names of the medications Note: Keppra XR was prescribed following evaluation of the patient's surface EEG recording performed on the 09/03/2023 but the patient never started the medication secondary to fear of potential side effects. Family history: Negative for epilepsy Habits: None Review of Systems General: Reports: 10 or more systems reviewed and unremarkable except in HPI and below Medications/Allergies Home Medications Medication Instructions Recorded Confirmed Last Taken Type alendronate 70 mg tablet (Fosamax) 70 mg PO DAILY 10/03/19 12/03/23 11/30/23 History rosuvastatin 10 mg tablet 10 mg PO QPM 04/21/22 12/03/23 12/02/23 History berberine-herbal comb no.18 capsule See Rx Instructions .Route .COMPLEX 12/03/23 12/03/23 12/02/23 History calcium 250 mg-D3 400 1 tab PO TID 12/03/23 12/03/23 12/02/23 History unit-magnesium 40 pg-A2-Ns-copper-patel tablet cetirizine 10 mg tablet (Zyrtec) 10 mg PO DAILY 12/03/23 12/03/23 12/02/23 History clonazepam 0.5 mg tablet (Klonopin) See Rx Instructions .Route .COMPLEX 12/03/23 12/03/23 12/02/23 History divalproex 500 mg tablet,delayed 500 mg PO QPM 12/03/23 12/03/23 12/02/23 History release folic acid 1 mg tablet 1 mg PO QPM 12/03/23 12/03/23 12/02/23 History lactobacillus combination no.4 3 3,000 mmu cells PO DAILY 12/03/23 12/03/23 12/02/23 History billion cell capsule (Probiotic) levetiracetam 750 mg tablet 750 mg PO BEDTIME 12/03/23 12/03/23 12/02/23 History levothyroxine 50 mcg tablet 50 mcg PO QAM 12/03/23 12/03/23 12/02/23 History ifhsgngy-fku-kyom-FA-Ca carb-vit K 1 tab PO TID 12/03/23 12/03/23 12/02/23 History 18 mg iron-400 mcg-500 mg tablet turmeric 400 mg capsule 400 mg PO QAM 12/03/23 12/03/23 12/02/23 History venlafaxine 37.5 mg 37.5 mg PO DAILY 12/03/23 12/03/23 12/02/23 History capsule,extended release 24 hr Allergies Allergy/AdvReac Type Severity Reaction Status Date / Time sulfacetamide Allergy Intermediate ADR-Itching Verified 12/03/23 02:27 Latex, Natural Rubber Allergy Unknown Verified 12/03/23 03:12 Current Medications Generic Name Dose Route Start Last Admin Trade Name Freq PRN Reason Stop Dose Admin Acetaminophen 650 mg 12/03/23 07:22 12/03/23 11:06 Acetaminophen 325 Mg Tablet PO 650 mg Q6H PRN Administration Mild/Mod Pain Or Temp >/= 101 Aspirin 81 mg 12/03/23 09:00 12/03/23 11:06 Aspirin 81 Mg Ec Tablet PO 81 mg DAILY KENROY Administration Atorvastatin Calcium 40 mg 12/03/23 09:00 12/03/23 11:06 Atorvastatin 40 Mg Tablet PO 40 mg DAILY KENROY Administration Enoxaparin Sodium 40 mg 12/03/23 07:30 12/03/23 08:02 Enoxaparin 40 Mg/0.4 Ml Syringe SUBCUT 40 mg Q24H KENROY Administration Sodium Chloride 1,000 mls @ 75 mls/hr 12/03/23 07:30 12/03/23 11:07 Sodium Chloride 0.9% IV 75 mls/hr .[id number] KENROY Administration Levothyroxine Sodium 88 mcg 12/03/23 09:00 12/03/23 11:06 Levothyroxine 88 Mcg Tablet PO 88 mcg DAILY KENROY Administration Pantoprazole Sodium 40 mg 12/03/23 14:35 12/03/23 16:44 Pantoprazole 40 Mg Sdv IVP 40 mg DAILY KENROY Administration PFSH Acute PFSH: Medical History (Updated 12/03/23 @ 17:45 by Cesar Crowley MD) Hypothyroidism ELLIOTT (obstructive sleep apnea) On CPAP: Optimal pressure 8cm, prescribed 6-12cm auto-titrating Cerebrovascular accident Elevated blood pressure reading without diagnosis of hypertension Multiple neurological symptoms Status post administration of all doses of COVID-19 vaccine series Actinic keratoses Areas on face treated with liquid nitrogen 06/2021 COVID-19 ~04/11/22, s/p treatment with Paxlovid Mixed stress and urge urinary incontinence Depression Hyperlipidemia Osteoporosis Epilepsy Plantar porokeratosis, acquired Surgical History History of oral surgery History of tonsillectomy History of total bilateral knee replacement Hx of hysterectomy Hx of lumpectomy History of bunionectomy Family History Sister , AT AGE 63 HEART ATTACK CAD (coronary artery disease) Denies family history of Clotting disorder Stroke Social History Smoking and tobacco/nicotine status: never used tobacco/nicotine Alcohol intake: never Substance/Drug Use: never Caregiver/support person: Yes (spouse) Household members: spouse Marital status: Current occupational status: retired Vitals/I&O/Wt Last Vital Signs Temp 98.2 F 12/03/23 11:40 Pulse 75 12/03/23 11:40 Resp 17 12/03/23 11:40 BP 168/75 12/03/23 11:40 Pulse Ox 96 12/03/23 11:40 O2 Del Method Room Air 12/03/23 11:40 12/03/23 12/03/23 12/03/23 06:59 14:59 22:59 Intake Total 1000 / 1000 286.25 / 286.25 Balance 1000 / 1000 286.25 / 286.25 Weight last 48 hrs Weight 202 lb 1.6 oz Weight 250 lb Physical Exam Narrative: The patient was initially confused and intermittently drowsy and agitated but following intravenous Depakote, Ativan and starting IV Keppra the patient became more alert. Speech improved from dysarthric to more fluent. Head normocephalic. Neck supple. Cranial nerves II through XII intact except for decreased hearing bilaterally. Patient wears hearing aids. Pupils 4 mm. Pupils equal round and reactive to light and accommodation. Extraocular movements intact. There was no nystagmus. Head and neck with revealed some intermittent tremors. There was also tremors in her upper extremities bilaterally. Family reported this is chronic and secondary to the Depakote. Motor testing 5/5 bilaterally. Deep tendon reflexes 2+ bilaterally except for 0 reflexes at the Patellas and Achilles bilaterally. Plantar responses flexor bilaterally. There was no clonus. Sensory examination was intact to gross modalities. Throat clear. Lungs clear. Heart regular rhythm and rate. Extremities were negative for clubbing cyanosis or edema. Urinary Catheter Management: Stewart: Cath Placed During This Visit: yes Urinary Catheter Date of Insertion: 12/03/23 Urinary Catheter Time of Insertion: 16:35 Data 12/03/23 02:33 12/03/23 02:33 A&P Assessment and plan (1) Subclinical status epilepticus: Impression: 1. Subclinical status epilepticus 12/03/2023 with abnormal continuous video surface EEG recording secondary to generalized frontally predominant 3 Hz spike and slow wave activity 2. Intractable generalized epilepsy since childhood manifested as altered awareness without warning followed by postevent sleeping. Last reported seizure 12/03/2023 3. Grand mal seizures in the past last reported grand mal seizure 12/03/2023 4. Macular degeneration addressed by ophthalmology 5. Hypothyroidism 6. Tremors involving her head neck, and upper extremity and body reports to be secondary to Depakote with reported exacerbation of tremors on higher doses of Depakote 7. Abnormal awake, stage I and stage II sleep 75-minute surface EEG recording 09/03/2023 secondary to interictal activity seen during wakefulness, drowsiness and sleep consisting of frontally predominant spike and slow wave and polyspike and slow wave activity seen synchronously over the left and right hemispheres lasting 1 to 2 seconds. 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 8. Insomnia 9. Hypothyroidism addressed by family physician 10. Obstructive sleep apnea on CPAP 11. GI upset with diarrhea for 3-day Plan: 1. Transfer to intensive care unit for close observation and treatment for subclinical status epilepticus and intractable generalized epilepsy 2. IV Depacon 500 mg IV load x 1 dose followed by 250 mg every 8 hours for seizure prophylaxis 3. IV Keppra 1000 mg IV load x 1 dose followed by 500 mg IV every 12 hours for seizure 4. Ativan 1 mg IV every 6 hours as needed seizures 5. Resume Klonopin 0.5 mg tablets 1-2 p.o. nightly for seizure prophylaxis and sleep 6. Continue seizure precautions 7. Continue continuous video surface EEG monitoring to assess for recurrent subclinical status epilepticus which is a potential life-threatening condition 8. Trough Depakote level at 10 AM on 12/04/2023 9. Adjust intravenous Keppra and Depacon as needed/tolerated 10. Will plan to change Keppra and Depacon to oral Keppra and Depakote formulation if patient remains stable (2) Intractable generalized epilepsy: (3) Postictal confusion: Consult Attestations Medical Necessity Statement: The patient was evaluated by neurology for subclinical status epilepticus and intractable epilepsy with recurrent seizures Coding Level of Care Code 94284 Diagnoses Subclinical status epilepticus G40.901 Intractable generalized epilepsy G40.319 Postictal confusion F05 Comment I spent more than 90 minutes addressing this patient's seizures/condition
[2023-12-03] MEDS: valproic acid inj 250 MG in sodium chloride 0.9% 50 ML 55 MG IV (17:49)
--- NOTE | 2023-12-03 18:00 | PC.NURSE ---
EEG monitoring wires loose and off. Pt tearful, twisting and turning in the bed. Wanting some meds to make her go to sleep. Her back is bothering her . Daughter states heat and ice helps. Will apply a warm moist pack.
[2023-12-03 18:04] LABS: Bilirubin Urine Neg (Negative); Blood Urine Neg (Negative); Glucose Urine UA Norm (Normal); Ketones Urine 1+ (Negative); Leukocyte Esterase Urine Negative (Negative); Nitrate Urine Negative (Negative); Protein Urine Neg (Negative); Specific Gravity, Urine 1.015 (1.005-1.030); Urine Appearance Clear (CLEAR); Urine Color Yellow (Yellow); Urobilinogen Urine Norm (Negative); pH Urine 7 (5-7)
--- NOTE | 2023-12-03 18:15 | PC.NURSE ---
Valproic acid admin IVPB. Pt then started having head tremors. Daughter, Geneva, at bedside stated that pt has hand and/or head tremors after Valproic acid medications at home.
--- NOTE | 2023-12-03 19:13 | PC.NURSE ---
Shift summary: Pt is alert self, , place and year. She became tearful when she could not remember month or day of week. No physical seizure activity ( jerking , twitching, etc) noted. She has wiggled and flopped all over the bed, she has been lifted up in the bed several times since her arrival at 1600. Tylenol admin for back pain. Did not provided much relief. Hot pack applied to right flank/lower back area. Pt went right to sleep. During all her twisting and turning EEG leads off. Stewart inserted this afternoon, 250ml of dark yellow output. Sample sent to lab. Family attentive at bedside. Home CPAP brought in.
[2023-12-03 21:35] LABS: Amphetamines Screen Urine Negative (Negative); Barbiturates Screen Urine Negative (Negative); Benzodiazepines Screen Urine Negative (Negative); Cocaine Screen Urine Negative (Negative); Opiate Screen Urine Negative (Negative); PCP Screen Urine Negative (Negative); THC Screen Urine Negative (Negative)
[2023-12-04] VITALS (22 sets, daily range): BP systolic 127–174; BP diastolic 64–101; PULSE 68–96; RESP 17–25; TEMP 36.2–37; O2SAT 92–98
[2023-12-04] MEDS: sodium chloride 0.9% 1,000 ML 75 ML IV (00:17)
[2023-12-04] MEDS: valproic acid inj 250 MG in sodium chloride 0.9% 50 ML 55 MG IV (01:25)
[2023-12-04] MEDS: levETIRAcetam 500 MG/100 ML PREMIX 400 MG IV (03:13)
[2023-12-04 04:45] LABS: Basophils % 0.6 %; Eosinophils # 0.3 10^3/uL (0.0-0.8); Eosinophils % 5.5 %; Hematocrit 39.5 % (36-47); Lymphocytes # 1.1 10^3/uL (0.8-4.8); Lymphocytes % 20.2 %; Mean Corpuscular HGB Conc 32.4 g/dL (30-55); Mean Corpuscular Hemoglobin 29.1 pg (27-33); Mean Corpuscular Volume 89.8 fl (85-98); Mean Platelet Volume 9.9 fL (7.4-10.4); Monocytes # 0.3 10^3/uL (0.2-0.9); Monocytes % 5.1 %; Neutrophils # 3.69 10^3/uL (1.8-7.7); Neutrophils % 67.9 %; Nucleated Red Blood Cells % 0 %; Platelet Count 164 10^3/cmm (157-399); Red Cell Distribution Width 12.6 % (12.1-15.1); White Blood Count 5.44 10^3/uL (3.29-11.43)
[2023-12-04 05:07] LABS: Alanine Aminotransferase 16 U/L (0-33); Albumin Level 3.8 g/dL (3.5-5.2); Alkaline Phosphatase 67 U/L (35-105); Anion Gap 15.3 (5-19); Aspartate Amino Transferase 36 U/L (0-32); Blood Urea Nitrogen 6 mg/dL (8-23); Calcium 8.3 mg/dL (8.5-10.5); Carbon Dioxide 22 mmol/L (22-29); Chloride 104 mmol/L (98-107); Creatinine Clr Calc Pharmacy 72.3123; Globulin 2.5 g/dL (1.3-4.6); Glucose 91 mg/dL (65-115); Osmolality Calculated 283 mOsm/kg (285-295); Potassium 3.3 mmol/L (3.5-5.1); Sodium 138 mmol/L (136-145); Total Bilirubin 0.8 mg/dL (0.15-1.2); Total Protein 6.3 g/dL (6.6-8.7)
[2023-12-04 05:12] LABS: Cholesterol 160 mg/dL (0-200); HDL Cholesterol 47 mg/dL (60-100); LDL Cholesterol Calculated 86 mg/dL (50-129); Magnesium 1.9 mg/dL (1.7-2.3); Triglycerides 133 mg/dL (0-150); VLDL Cholestrol Calculation 27 mg/dL (0-30)
[2023-12-04 05:17] LABS: Estmated Average Glucose 100; Hemoglobin A1C 5.1 % (4.0-6.0)
[2023-12-04 05:30] LABS: Folate Level > 20.0 ng/mL (4.8-37.3)
--- NOTE | 2023-12-04 07:52 | P.PN_ITS ---
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 The patient was initially evaluated in the outpatient [facility] neurology clinic on 07/23/2023. Patient's seizures are described as altered awareness without warning followed by postevent sleeping for hours. According to the , the patient has experienced experienced grand mal seizures in the past but her last grand mal seizure was in 2004. According to the patient, She was tried on Celontin and phenobarbital and some other anticonvulsant medication in the past but she was later switched to Depakote which markedly improved her seizures. Patient states that she was on 1000 mg a day but she experienced severe tremors involving her head neck and hands and body and therefore the Depakote was decreased back to 500 mg at bedtime. The patient stated that she did well and did not experience any seizures until she experienced COVID-19 infection in March 2022. Patient stated that she had completed the treatment for COVID-19 pneumonia but was experiencing dehydration and forgot to take her Depakote. The patient was in the emergency room going to the bathroom and the witnessed the patient experiencing staring with upward deviation of her eyes. He stated that he called his and laid her down there was no trauma. Patient was reported to experience the seizure-like episode for a few seconds followed by postevent sleeping for hours. The patient was hospitalized. Labs obtained on 04/23/2020 to review for CBC and comprehensive metabolic panel were unrevealing. Cholesterol and triglyceride levels were reported to be elevated on 04/22/2022. And on 04/21/2022 trough Depakote level was subtherapeutic at 24.7. Head MRI was obtained on 04/22/2022 and revealed a few teeny lacunar infarctions in the basal ganglia and moderate symmetrical atrophy involving the temporal lobes and hippocampal formations. Carotid duplex study performed on 04/22/2022 revealed mild plaque in the carotid bulbs and proximal internal carotid arteries but less than 50% stenosis. Head CT scan performed on 04/21/2022 revealed findings similar to those reported on head MRI performed on 04/22/2022. Since that time the patient stated she has been doing well. I recommended the patient undergo a surface EEG study to assess for subclinical seizure activity as well as obtain lab today for trough Depakote level, TSH, vitamin D, magnesium, CBC, SGOT, SGPT, LDH, ammonia level. Also I recommended the patient's start a multivitamin 1 p.o. daily and start folate 1 mg p.o. daily since patient is on Depakote. Surface EEG recording was performed on 09/03/2023. This study was abnormal secondary to burst of frontally predominant synchronous polyspike and slow wave activity seen over the left and right hemispheres. The patient was instructed to continue Depakote ER 500 mg p.o. nightly. Keppra XR 750 mg was prescribed at bedtime. But, the patient stated that she was concerned about potential side effects of Keppra and therefore she never started the medication. The patient stated that she attempted to contact [facility] neurology clinic several times but was unable to leave a message for the neurology clinic. The patient presents for reassessment the results of her EEG study were discussed in detail with her and her . The patient again informed me that she was reluctant to take Keppra therefore I recommended adding a low-dose of Klonopin at night for seizure prophylaxis and sleep especially since she reports insomnia. Potential side effects of Klonopin were discussed with the patient and her . The patient agreed with this plan. Patient also underwent lab which revealed a trough Depakote level of 70.0 which was therapeutic. TSH was decreased to 0.11 (normal equals 0.27-4.2). CBC, comprehensive metabolic panel, liver profile, vitamin D, magnesium, B12, folate and methylmalonic acid were within normal limits. The patient was encouraged to follow-up with her family physician regarding her TSH level. Also I recommended repeating the patient's EEG on return visit in 4 months or sooner if needed. The patient presented to the [facility] emergency room on 12/03/2023 after experiencing 2 grand mal seizures over 12 hours. The first seizure occurred on 12/02/2023 at 6 PM and lasted for approximately 2 minutes followed by continued inattention followed by continued confusion. The second seizure occurred at 2 AM on 12/03/2023 with continued confusion and therefore the patient was brought to [facility] emergency room. According to the , the patient had been experiencing GI upset and diarrhea for the 3 days and ran out of the Klonopin 2 days prior to presenting to the emergency room. I was contacted by Dr. Li at approximately 7 AM on 12/03/2023. I evaluated the patient on [facility] floor room 278 bed #2. The patient was confused but able to answer some questions. Her examination was nonfocal. Surface EEG recording was ordered and patient was discovered to be experiencing subclinical status epilepticus and therefore she was continued on continuous video surface EEG monitoring. I spoke with the admitting hospitalist and patient was transferred to the intensive care unit. Patient was also changed from oral Depakote to IV Depacon and given 500 mg IV load x 1 dose followed by 250 mg IV every 8 hours. I spoke with the at great lengths regarding adding an additional medication. The agreed to start the IV Keppra since in my medical opinion with a reasonable degree of medical certainty, would be the next appropriate step for intractable generalized epilepsy. Patient was also given Ativan 1 mg IV x 1 dose with some improvement in her EEG although her EEG remained abnormal. Patient was transferred to the intensive care unit for close observation and continued on continuous video surface EEG monitoring in the ICU. The Keppra was not started until the patient arrived in the intensive care unit and I stated the patient bedside until the IV Keppra was infused and the patient displayed improvement in her continuous video surface EEG recordings with resolution of these subclinical status epilepticus and improvement in her mentation. She was able to communicate with her family. Occasionally some occasional brief burst of generalized frontally predominant semirhythmic delta/theta activity was seen lasting for 1 to 2 seconds without obvious clinical correlation. The patient was continued on intravenous Depacon 250 mg every 8 hours and intravenous Keppra 1 g IV load followed by 500 mg IV every 12. Patient will have trough Depakote level performed around 10 AM on 12/04/2023 prior to her 10 AM dose as scheduled for 12/04/2023. The patient will be continued on seizure precautions and Ativan prescribed 1 mg IV every 6 hours if needed for seizures. The family will bring the patient's CPAP to be worn at night during sleep. This a.m. on 12/04/2023 the patient is resting. She was arousable to verbal stimuli and is oriented. There were no reported seizures during the night but according to the intensive care nurse caring for the patient, the patient was reported to be restless last night and removed the electrodes. Therefore continuous video surface EEG monitoring was discontinued. Since the patient is stable, will change IV Depacon to oral Depakote ER 500 mg at bedtime and change IV Keppra to oral Keppra at 500 mg p.o. twice daily. I was informed by the nurse that there is no Keppra ER on the hospital formulation. Will plan to perform repeat surface EEG recording today to assess for any subclinical seizure activity. Drug allergies: Sulfonamide antibiotics which resulted in itching Current medications: IV Depacon 250 mg every 8 hours (to be changed to Depakote ER 500 mg p.o. nightly for seizure prophylaxis) IV Keppra 500 mg every 12 hours (to be changed to 500 mg p.o. twice daily) Klonopin 0.5 mg tablets 1 to 2 tablets p.o. nightly for seizure prophylaxis sleep Crestor 10 mg p.o. daily Effexor ER 75 mg p.o. daily Aspirin 81 mg p.o. daily Fosamax 70 mg every Thursday Synthroid 88 mcg p.o. daily Areds Eyedrops twice a day for macular degeneration Multivitamin with Vitamin A/vitamin C/vitamin D/zinc/copper 2 tablets p.o. twice daily Past medical history: Intractable epilepsy since childhood Macular degeneration (Addressed by ophthalmology) Hypothyroidism Hearing loss with bilateral hearing aids Osteoporosis Hyperlipidemia COVID-19 infection March 2022 Past anticonvulsant medications: Celontin, phenobarbital Patient reports being tried on other anticonvulsant medications but could not recall the names of the medications Note: Keppra XR was prescribed following evaluation of the patient's surface EEG recording performed on the 09/03/2023 but the patient never started the medication secondary to fear of potential side effects. Family history: Negative for epilepsy Habits: None Review of Systems General: Reports: 10 or mor e systems reviewed and unremarkable except in HPI and below Vitals/I&O/Wt Last Vital Signs Temp 97.2 F L 12/04/23 04:38 Pulse 86 12/04/23 05:55 Resp 19 H 12/03/23 20:45 BP 130/60 12/03/23 20:45 Pulse Ox 88 L 12/03/23 20:45 O2 Del Method Room Air 12/03/23 19:00 12/03/23 12/04/23 12/04/23 22:59 06:59 14:59 Intake Total 302.5 / 588.75 1140.0 / 1728.75 Output Total 250 / 250 280 / 530 Balance 52.5 / 338.75 860.0 / 1198.75 Weight last 48 hrs Weight 207 lb Weight 202 lb 1.6 oz Weight 250 lb Physical Exam 2 Const: OTHER: The patient is more alert. Speech improvedfluent. Head normocephalic. Neck supple. Cranial nerves II through XII intact except for decreased hearing bilaterally. Patient wears hearing aids. Pupils 4 mm. Pupils equal round and reactive to light and accommodation. Extraocular movements intact. There was no nystagmus. Head and neck with revealed some intermittent tremors. There was also tremors in her upper extremities bilaterally. Family reported this is chronic and secondary to the Depakote. Motor testing 5/5 bilaterally. Deep tendon reflexes 2+ bilaterally except for 0 reflexes at the Patellas and Achilles bilaterally. Plantar responses flexor bilaterally. There was no clonus. Sensory examination was intact to gross modalities. Throat clear. Lungs clear. Heart regular rhythm and rate. Extremities were negative for clubbing cyanosis or edema. Urinary Catheter Management: Stewart: Cath Placed During This Visit: yes Reason for Continuing Indwelling Catheter: Accurate Measurement of Urinary Output in Critically Ill Patients Urinary Catheter Date of Insertion: 12/03/23 Urinary Catheter Time of Insertion: 16:35 Data 12/04/23 04:26 12/04/23 04:26 A&P Assessment and plan (1) Subclinical status epilepticus: Impression: 1. Subclinical status epilepticus 12/03/2023 with abnormal continuous video surface EEG recording secondary to generalized frontally predominant 3 Hz spike and slow wave activity 2. Intractable generalized epilepsy since childhood manifested as altered awareness without warning followed by postevent sleeping. Last reported seizure 12/03/2023 3. Grand mal seizures in the past last reported grand mal seizure 12/03/2023 4. Macular degeneration addressed by ophthalmology 5. Hypothyroidism 6. Tremors involving her head neck, and upper extremity and body reports to be secondary to Depakote with reported exacerbation of tremors on higher doses of Depakote 7. Abnormal awake, stage I and stage II sleep 75-minute surface EEG recording 09/03/2023 secondary to interictal activity seen during wakefulness, drowsiness and sleep consisting of frontally predominant spike and slow wave and polyspike and slow wave activity seen synchronously over the left and right hemispheres lasting 1 to 2 seconds. 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 8. Insomnia 9. Hypothyroidism addressed by family physician 10. Obstructive sleep apnea on CPAP 11. GI upset with diarrhea for 3-day Plan: 1. Change IV Depacon to oral Depakote ER 500 mg p.o. nightly (starting 12/04/2023) 2. Change IV Keppra to oral Keppra 500 mg p.o. twice daily (starting 12/04/2023) 3. Awaiting trough Depakote level ordered for 11 AM on 12/04/2023 4. Adjust Depakote as needed/tolerated 5. Will plan to change Keppra to Keppra ER 500 mg tablets 2 p.o. nightly on discharge 6. Awaiting repeat EEG to assess for any subclinical seizure activity (note: Patient removed the EEG electrodes during the night of 12/03/2023) 7. Continue seizure precautions per hospital protocol and state law 8. Will obtain trough Keppra and Depakote levels on outpatient basis 9. Please schedule patient for follow-up in the [facility] neurology clinic 1 to 2 weeks after discharge. (2) Intractable generalized epilepsy: (3) Abnormal EEG: Attestations 2 Medical Necessity Statement*: The patient was evaluated by neurology for subclinical status epilepticus, and intractable generalized epilepsy with recurrent clinical seizures Coding Level of Care Code 78697 Diagnoses Subclinical status epilepticus G40.901 Intractable generalized epilepsy G40.319 Abnormal EEG R94.01
--- NOTE | 2023-12-04 08:55 | P.PCN_ITS ---
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 The patient was initially evaluated in the outpatient [facility] neurology clinic on 07/23/2023. Patient's seizures are described as altered awareness without warning followed by postevent sleeping for hours. According to the , the patient has experienced experienced grand mal seizures in the past but her last grand mal seizure was in 2004. According to the patient, She was tried on Celontin and phenobarbital and some other anticonvulsant medication in the past but she was later switched to Depakote which markedly improved her seizures. Patient states that she was on 1000 mg a day but she experienced severe tremors involving her head neck and hands and body and therefore the Depakote was decreased back to 500 mg at bedtime. The patient stated that she did well and did not experience any seizures until she experienced COVID-19 infection in March 2022. Patient stated that she had completed the treatment for COVID-19 pneumonia but was experiencing dehydration and forgot to take her Depakote. The patient was in the emergency room going to the bathroom and the witnessed the patient experiencing staring with upward deviation of her eyes. He stated that he called his and laid her down there was no trauma. Patient was reported to experience the seizure-like episode for a few seconds followed by postevent sleeping for hours. The patient was hospitalized. Labs obtained on 04/23/2020 to review for CBC and comprehensive metabolic panel were unrevealing. Cholesterol and triglyceride levels were reported to be elevated on 04/22/2022. And on 04/21/2022 trough Depakote level was subtherapeutic at 24.7. Head MRI was obtained on 04/22/2022 and revealed a few teeny lacunar infarctions in the basal ganglia and moderate symmetrical atrophy involving the temporal lobes and hippocampal formations. Carotid duplex study performed on 04/22/2022 revealed mild plaque in the carotid bulbs and proximal internal carotid arteries but less than 50% stenosis. Head CT scan performed on 04/21/2022 revealed findings similar to those reported on head MRI performed on 04/22/2022. Since that time the patient stated she has been doing well. I recommended the patient undergo a surface EEG study to assess for subclinical seizure activity as well as obtain lab today for trough Depakote level, TSH, vitamin D, magnesium, CBC, SGOT, SGPT, LDH, ammonia level. Also I recommended the patient's start a multivitamin 1 p.o. daily and start folate 1 mg p.o. daily since patient is on Depakote. Surface EEG recording was performed on 09/03/2023. This study was abnormal secondary to burst of frontally predominant synchronous polyspike and slow wave activity seen over the left and right hemispheres. The patient was instructed to continue Depakote ER 500 mg p.o. nightly. Keppra XR 750 mg was prescribed at bedtime. But, the patient stated that she was concerned about potential side effects of Keppra and therefore she never started the medication. The patient stated that she attempted to contact [facility] neurology clinic several times but was unable to leave a message for the neurology clinic. The patient presents for reassessment the results of her EEG study were discussed in detail with her and her . The patient again informed me that she was reluctant to take Keppra therefore I recommended adding a low-dose of Klonopin at night for seizure prophylaxis and sleep especially since she reports insomnia. Potential side effects of Klonopin were discussed with the patient and her . The patient agreed with this plan. Patient also underwent lab which revealed a trough Depakote level of 70.0 which was therapeutic. TSH was decreased to 0.11 (normal equals 0.27-4.2). CBC, comprehensive metabolic panel, liver profile, vitamin D, magnesium, B12, folate and methylmalonic acid were within normal limits. The patient was encouraged to follow-up with her family physician regarding her TSH level. Also I recommended repeating the patient's EEG on return visit in 4 months or sooner if needed. The patient presented to the [facility] emergency room on 12/03/2023 after experiencing 2 grand mal seizures over 12 hours. The first seizure occurred on 12/02/2023 at 6 PM and lasted for approximately 2 minutes followed by continued inattention followed by continued confusion. The second seizure occurred at 2 A M on 12/03/2023 with continued confusion and therefore the patient was brought to [facility] emergency room. According to the , the patient had been experiencing GI upset and diarrhea for the 3 days and ran out of the Klonopin 2 days prior to presenting to the emergency room. I was contacted by Dr. Li at approximately 7 AM on 12/03/2023. I evaluated the patient on [facility] floor room 278 bed #2. The patient was confused but able to answer some questions. Her examination was nonfocal. Surface EEG recording was ordered and patient was discovered to be experiencing subclinical status epilepticus and therefore she was continued on continuous video surface EEG monitoring. I spoke with the admitting hospitalist and patient was transferred to the intensive care unit. Patient was also changed from oral Depakote to IV Depacon and given 500 mg IV load x 1 dose followed by 250 mg IV every 8 hours. I spoke with the at great lengths regarding adding an additional medication. The agreed to start the IV Keppra since in my medical opinion with a reasonable degree of medical certainty, would be the next appropriate step for intractable generalized epilepsy. Patient was also given Ativan 1 mg IV x 1 dose with some improvement in her EEG although her EEG remained abnormal. Patient was transferred to the intensive care unit for close observation and continued on continuous video surface EEG monitoring in the ICU. The Keppra was not started until the patient arrived in the intensive care unit and I stated the patient bedside until the IV Keppra was infused and the patient displayed improvement in her continuous video surface EEG recordings with resolution of these subclinical status epilepticus and improvement in her mentation. She was able to co mmunicate with her family. Occasionally some occasional brief burst of generalized frontally predominant semirhythmic delta/theta activity was seen lasting for 1 to 2 seconds without obvious clinical correlation. The patient was continued on intravenous Depacon 250 mg every 8 hours and intravenous Keppra 1 g IV load followed by 500 mg IV every 12. Patient will have trough Depakote level performed around 10 AM on 12/04/2023 prior to her 10 AM dose as scheduled for 12/04/2023. The patient will be continued on seizure precautions and Ativan prescribed 1 mg IV every 6 hours if needed for seizures. The family will bring the patient's CPAP to be worn at night during sleep. This a.m. on 12/04/2023 the patient is resting. She was arousable to verbal stimuli and is oriented. There were no reported seizures during the night but according to the intensive care nurse caring for the patient, the patient was reported to be restless last night and removed the electrodes. Therefore continuous video surface EEG monitoring was discontinued. Since the patient is stable, will change IV Depacon to oral Depakote ER 500 mg at bedtime and change IV Keppra to oral Keppra at 500 mg p.o. twice daily. I was informed by the nurse that there is no Keppra ER on the hospital formulation. Will plan to perform repeat surface EEG recording today to assess for any subclinical seizure activity. 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 The patient was initially evaluated in the outpatient [facility] neurology clinic on 07/23/2023. Patient's seizures are described as altered awareness without warning followed by postevent sleeping for hours. According to the , the patient has experienced experienced grand mal seizures in the past but her last grand mal seizure was in 2004. According to the patient, She was tried on Celontin and phenobarbital and some other anticonvulsant medication in the past but she was later switched to Depakote which markedly improved her seizures. Patient states that she was on 1000 mg a day but she experienced severe tremors involving her head neck and hands and body and therefore the Depakote was decreased back to 500 mg at bedtime. The patient stated that she did well and did not experience any seizures until she experienced COVID-19 infection in March 2022. Patient stated that she had completed the treatment for COVID-19 pneumonia but was experiencing dehydration and forgot to take her Depakote. The patient was in the emergency room going to the bathroom and the witnessed the patient experiencing staring with upward deviation of her eyes. He stated that he called his and laid her down there was no trauma. Patient was reported to experience the seizure-like episode for a few seconds followed by postevent sleeping for hours. The patient was hospitalized. Labs obtained on 04/23/2020 to review for CBC and comprehensive metabolic panel were unrevealing. Cholesterol and triglyceride levels were reported to be elevated on 04/22/2022. And on 04/21/2022 trough Depakote level was subtherapeutic at 24.7. Head MRI was obtained on 04/22/2022 and revealed a few teeny lacunar infarctions in the basal ganglia and moderate symmetrical atrophy involving the temporal lobes and hippocampal formations. Carotid duplex study performed on 04/22/2022 revealed mild plaque in the carotid bulbs and proximal internal carotid arteries but less than 50% stenosis. Head CT scan performed on 04/21/2022 revealed findings similar to those reported on head MRI performed on 04/22/2022. Since that time the patient stated she has been doing well. I recommended the patient undergo a surface EEG study to assess for subclinical seizure activity as well as obtain lab today for trough Depakote level, TSH, vitamin D, magnesium, CBC, SGOT, SGPT, LDH, ammonia level. Also I recommended the patient's start a multivitamin 1 p.o. daily and start folate 1 mg p.o. daily since patient is on Depakote. Surface EEG recording was performed on 09/03/2023. This study was abnormal secondary to burst of frontally predominant synchronous polyspike and slow wave activity seen over the left and right hemispheres. The patient was instructed to continue Depakote ER 500 mg p.o. nightly. Keppra XR 750 mg was prescribed at bedtime. But, the patient stated that she was concerned about potential side effects of Keppra and therefore she never started the medication. The patient stated that she attempted to contact [facility] neurology clinic several times but was unable to leave a message for the neurology clinic. The patient presents for reassessment the results of her EEG study were discussed in detail with her and her . The patient again informed me that she was reluctant to take Keppra therefore I recommended adding a low-dose of Klonopin at night for seizure prophylaxis and sleep especially since she reports insomnia. Potential side effects of Klonopin were discussed with the patient and her . The patient agreed with this plan. Patient also underwent lab which revealed a trough Depakote level of 70.0 which was therapeutic. TSH was decreased to 0.11 (normal equals 0.27-4.2). CBC, comprehensive metabolic panel, liver profile, vitamin D, magnesium, B12, folate and methylmalonic acid were within normal limits. The patient was encouraged to follow-up with her family physician regarding her TSH level. Also I recommended repeating the patient's EEG on return visit in 4 months or sooner if needed. The patient presented to the [facility] emergency room on 12/03/2023 after experiencing 2 grand mal seizures over 12 hours. The first seizure occurred on 12/02/2023 at 6 PM and lasted for approximately 2 minutes followed by continued inattention followed by continued confusion. The second seizure occurred at 2 AM on 12/03/2023 with continued confusion and therefore the patient was brought to [facility] emergency room. According to the , the patient had been experiencing GI upset and diarrhea for the 3 days and ran out of the Klonopin 2 days prior to presenting to the emergency room. I was contacted by Dr. Li at approximately 7 AM on 12/03/2023. I evaluated the patient on [facility] floor room 278 bed #2. The patient was confused but able to answer some questions. Her examination was nonfocal. Surface EEG recording was ordered and patient was discovered to be experiencing subclinical status epilepticus and therefore she was continued on continuous video surface EEG monitoring. I spoke with the admitting hospitalist and patient was transferred to the intensive care unit. Patient was also changed from oral Depakote to IV Depacon and given 500 mg IV load x 1 dose followed by 250 mg IV every 8 hours. I spoke with the at great lengths regarding adding an additional medication. The agreed to start the IV Keppra since in my medical opinion with a reasonable degree of medical certainty, would be the next appropriate step for intractable generalized epilepsy. Patient was also given Ativan 1 mg IV x 1 dose with some improvement in her EEG although her EEG remained abnormal. Patient was transferred to the intensive care unit for close observation and continued on continuous video surface EEG monitoring in the ICU. The Keppra was not started until the patient arrived in the intensive care unit and I stated the patient bedside until the IV Keppra was infused and the patient displayed improvement in her continuous video surface EEG recordings with resolution of these subclinical status epilepticus and improvement in her mentation. She was able to communicate with her family. Occasionally some occasional brief burst of generalized frontally predominant semirhythmic delta/theta activity was seen lasting for 1 to 2 seconds without obvious clinical correlation. The patient was continued on intravenous Depacon 250 mg every 8 hours and intravenous Keppra 1 g IV load followed by 500 mg IV every 12. Patient will have trough Depakote level performed around 10 AM on 12/04/2023 prior to her 10 AM dose as scheduled for 12/04/2023. The patient will be continued on seizure precautions and Ativan prescribed 1 mg IV every 6 hours if needed for seizures. The family will bring the patient's CPAP to be worn at night during sleep. This a.m. on 12/04/2023 the patient is resting. She was arousable to verbal stimuli and is oriented. There were no reported seizures during the night but according to the intensive care nurse caring for the patient, the patient was reported to be restless last night and removed the electrodes. Therefore continuous video surface EEG monitoring was discontinued. Since the patient is stable, will change IV Depacon to oral Depakote ER 500 mg at bedtime and change IV Keppra to oral Keppra at 500 mg p.o. twice daily. I was informed by the nurse that there is no Keppra ER on the hospital formulation. Will plan to perform repeat surface EEG recording today to assess for any subclinical seizure activity. EEG TEMPLATE: This is a 19 channel routine video surface EEG recording utilizing the [employer] software with surface and EKG electrodes. The procedure was performed utilizing the international 10-20 system. Patient name: Rox Denson Date of : 1950 Patient age [age] years old Identification number: [id number] Referring Physician: Cesar Crowley MD EEG#: EEG Start time: 09:41:08 EEG End time: 10:17:23 Duration of study: 20 minutes Date of study: 12/04/2023 Reason for study: 73-year-old female with history of intractable generalized epilepsy with recurrent seizures and subclinical status epilepticus on 12/03/2023. Repeat surface EEG recording performed to assess for subclinical status epilepticus and to assist in determining if additional or alternative anticonvulsant medications are required Skull defects: None Condition of recording: The patient was reported to be awake and later on asleep Cooperation: Good Activation procedures: None Medications: Keppra, Depakote ER, Klonopin, Effexor, Ativan as needed Background activity: Background activity during wakefulness consisted of 9 Hz low voltage alpha activity posteriorly penetrated by intermittent low voltage beta activity centrally and anteriorly. The alpha activity was symmetrical and reactive to eye opening. Intermittently during the recording the record was partially obscured by muscle and motion artifact. Later during the recording the alpha activity dropped out and generalized 4 to 7 Hz theta activity was seen over the left and right hemispheres. This activity was later intermixed with generalized moderate voltage delta activity. Intermittent vertex waves and sleep spindles were seen synchronously over the parasagittal regions Interictal activity: None Ictal activity: None Impression: This is a normal awake, stage I and briefly stage II sleep 20-minute surface EEG recording. Note: This study compared to the previous continuous video surface EEG recording reveals resolution of the status epilepticus and normalization of the patient's EEG study. Physician name/Signature: Cesar Crowley MD [employer] aircraft/Signature: Brie Wiley
[2023-12-04] MEDS: pantoprazole 40 mg SDV IVP (09:00)
[2023-12-04] MEDS: levothyroxine 88 mcg Tablet PO (09:01)
[2023-12-04] MEDS: aspirin 81 mg EC Tablet PO (09:01)
[2023-12-04] MEDS: enoxaparin 40 mg/0.4 mL Syringe SUBCUT (09:01)
[2023-12-04] MEDS: levETIRAcetam 500 mg Tablet PO ×2 (09:01→17:34)
[2023-12-04] MEDS: acetaminophen 325 mg Tablet 650 MG PO (09:01)
--- NOTE | 2023-12-04 12:20 | CTR_ITS ---
PROCEDURE INFORMATION: Exam: CT Lumbar Spine Without Contrast Exam date and time: 12/04/2023 2:19 PM Age: 73 years old Clinical indication: Low back pain TECHNIQUE: Imaging protocol: Computed tomography of the lumbar spine without contrast. Radiation optimization: All CT scans at this facility use at least one of these dose optimization techniques: automated exposure control; mA and/or kV adjustment per patient size (includes targeted exams where dose is matched to clinical indication); or iterative reconstruction. COMPARISON: No relevant prior studies available. RADIATION DOSE METRICS: Total DLP (mGy-cm): 868.46 FINDINGS: Bones/joints: Moderate compression fracture T12. Involvement of anterior and middle columns. Gas seen within the vertebral body. Suggestion of posterior cortical breakthrough. Degenerative disc disease and facet arthropathy with stenosis at L4-L5 and L3-L4. Retropulsed bone narrows the AP diameter of the neural canal by 30-40%. Subtle endplate fractures of L1, most evident on the coronal reconstructed images (series 6). Soft tissues: Unremarkable. CT/CT lumbar spine wo con* [id number] IMPRESSION: 1. Moderate T12 compression fracture involving anterior and middle columns with 30-40% narrowing of the AP diameter of the neural canal due to retropulsed bone. Overall appearance raises question of pathologic fracture and MRI may be helpful to exclude underlying vertebral body lesion. 2. Subtle endplate fractures of L1. 3. Degenerative changes with stenosis at lower lumbar levels.
[2023-12-04] MEDS: cyclobenzaprine 10 mg Tablet 5 MG PO ×2 (13:05→22:11)
[2023-12-04 13:13] LABS: Valproic Acid Level 62.8 ug/mL (50-100)
[2023-12-04] MEDS: TRAMadol 50 mg Tablet PO ×2 (14:09→22:11)
--- NOTE | 2023-12-04 16:32 | PM.PN ---
Subjective Subjective: No acute events overnight. Today morning examination patient is a lot more awake and alert and able to have complete conversation. Seen with multiple family members at bedside. Patient has been cleared from neurology team for discharge but not able to stand up by herself and complaining of back pain. Patient otherwise has remained hemodynamically stable and afebrile. Vitals/I&O/Wt Last Vital Signs Temp 97.8 F 12/04/23 14:45 Pulse 82 12/04/23 16:15 Resp 17 12/04/23 16:15 BP 145/75 12/04/23 16:15 Pulse Ox 95 12/04/23 16:15 O2 Del Method Room Air 12/04/23 16:15 12/04/23 12/04/23 12/04/23 06:59 14:59 22:59 Intake Total 1140.0 / 1728.75 1300 / 1300 Output Total 280 / 530 Balance 860.0 / 1198.75 1300 / 1300 Weight last 48 hrs Weight 93.894 kg Weight 91.671 kg Weight 113.398 kg Physical Exam Narrative: General: No acute distress,, drowsy possibly postictal, at bedside HEENT: PERRLA, pupils bilaterally equal and reactive Chest: Normal vesicular breath sounds, no added sounds, equal good air entry bilaterally CVS: S1-S2 regular, no murmurs, no tachycardia, no gallops, no rubs Abdomen: Soft, nontender, no organomegaly, bowel sounds present Neuro: No focal deficits, no facial deformity, Urinary Catheter Management: Stewart: Cath Placed During This Visit: yes Reason for Continuing Indwelling Catheter: Accurate Measurement of Urinary Output in Critically Ill Patients Urinary Catheter Date of Insertion: 12/03/23 Urinary Catheter Time of Insertion: 16:35 Data 12/04/23 04:26 12/04/23 04:26 Micro: Microbiology 12/03/23 16:30 Bacterial Antigens - Final Urine Kidney A&P Assessment and plan (1) Status epilepticus: Resolved for now. No further epileptic activity seen on EEG. Found to have low valproic acid levels. CT head negative for any acute abnormality. TSH mildly elevated. Check respiratory viral panel, vitamin B12 levels, urine drug screen, urinalysis. Patient does give history of diarrhea recently. Will continue to monitor as needed will do stool studies. Check urine bacterial antigen. Appreciate neurology recommendations. Plan to transition to Keppra 5 mg oral twice daily, Depakote ER 500 mg every afternoon, Klonopin 0.5 every afternoon. IV Ativan 1 g every 6 hours as needed for seizure. Seizure precautions, fall precaution. Continue with oral diet. Stewart catheterization (2) Postictal confusion: Resolved. (3) Generalized seizure: (4) ELLIOTT (obstructive sleep apnea): Continue with home CPAP. (5) Back pain: Seen on physical therapy especially on ambulation. CT thoracic and lumbar spine shows T12 fracture concerning for pathological fracture along with L1 endplate fracture. Continue with physical therapy. Pain control with Flexeril every 8 hours as needed, tramadol 50 mg every 6 hours as needed. Will consult Dr. Negron for further recommendations. Plan for MRI thoracolumbar for further assessment. With concerns of pathological fracture appreciate recent vitamin D levels in the last 3 months. (6) T12 compression fracture: Plan Transfer to [facility] floor. Full code Regular diet Protonix for PUD prophylaxis Lovenox for DVT prophylaxis Attestations Medical Necessity Statement*: Requires further hospitalization for management of seizure disorder and the patient was admitted for status epilepticus, back pain concerning for T12 and L1 fracture Diagnoses Status epilepticus G40.901 Postictal confusion F05 Generalized seizure R56.9 ELLIOTT (obstructive sleep apnea) G47.33 Back pain M54.9 T12 compression fracture S22.080A
[2023-12-04] MEDS: folic acid 1 mg Tablet PO (17:34)
--- NOTE | 2023-12-04 18:15 | PC.NURSE ---
Report called to med surg and given to JAIMEE Polanco. Pt transferred to room 251-1. All belongings with pt.
[2023-12-04] MEDS: divalproex ER 500 mg Tablet (24H) PO (22:10)
[2023-12-04] MEDS: CLONazepam 0.5 mg Tablet PO (22:11)
[2023-12-05] VITALS (8 sets, daily range): BP systolic 133–162; BP diastolic 71–83; PULSE 76–90; RESP 14–17; TEMP 36.8–37.7; O2SAT 92–97
[2023-12-05 03:26] LABS: Basophils % 0.6 %; Eosinophils # 0.4 10^3/uL (0.0-0.8); Eosinophils % 7.6 %; Hematocrit 39.7 % (36-47); Lymphocytes # 1.1 10^3/uL (0.8-4.8); Lymphocytes % 21.6 %; Mean Corpuscular HGB Conc 32.5 g/dL (30-55); Mean Corpuscular Hemoglobin 28.7 pg (27-33); Mean Corpuscular Volume 88.4 fl (85-98); Monocytes # 0.3 10^3/uL (0.2-0.9); Monocytes % 6.2 %; Neutrophils # 3.18 10^3/uL (1.8-7.7); Neutrophils % 63.4 %; Nucleated Red Blood Cells % 0 %; Platelet Count 166 10^3/cmm (157-399); Red Blood Count 4.49 10^6/uL (3.85-5.65); Red Cell Distribution Width 12.7 % (12.1-15.1); White Blood Count 5.01 10^3/uL (3.29-11.43)
[2023-12-05 03:47] LABS: Alanine Aminotransferase 15 U/L (0-33); Albumin Level 3.9 g/dL (3.5-5.2); Alkaline Phosphatase 64 U/L (35-105); Anion Gap 15.4 (5-19); Aspartate Amino Transferase 27 U/L (0-32); Blood Urea Nitrogen 7 mg/dL (8-23); Calcium 8.4 mg/dL (8.5-10.5); Carbon Dioxide 22 mmol/L (22-29); Chloride 101 mmol/L (98-107); Creatinine Clr Calc Pharmacy 72.3123; Globulin 2.6 g/dL (1.3-4.6); Glucose 92 mg/dL (65-115); Osmolality Calculated 278 mOsm/kg (285-295); Potassium 3.4 mmol/L (3.5-5.1); Sodium 135 mmol/L (136-145); Total Bilirubin 0.6 mg/dL (0.15-1.2); Total Protein 6.5 g/dL (6.6-8.7)
[2023-12-05 03:52] LABS: Magnesium 1.9 mg/dL (1.7-2.3)
[2023-12-05] MEDS: cyclobenzaprine 10 mg Tablet 5 MG PO ×3 (05:56→22:50)
[2023-12-05] MEDS: TRAMadol 50 mg Tablet PO ×3 (05:57→19:23)
[2023-12-05] MEDS: acetaminophen 325 mg Tablet 650 MG PO (08:29)
[2023-12-05] MEDS: enoxaparin 40 mg/0.4 mL Syringe SUBCUT (08:29)
[2023-12-05] MEDS: levETIRAcetam 500 mg Tablet PO ×2 (08:29→17:57)
[2023-12-05] MEDS: levothyroxine 88 mcg Tablet PO (08:29)
[2023-12-05] MEDS: aspirin 81 mg EC Tablet PO (08:29)
[2023-12-05] MEDS: pantoprazole 40 mg SDV IVP (09:41)
--- NOTE | 2023-12-05 10:54 | P.CONIM_ITS ---
Providers/Reason For Consult 2 Consulting Physician/Specialty*: Hospitalist Reason for Consult*: T12 compression fracture Attending Physician: Haroon Castillo MD Primary Care Provider: FRANCESCO Molina History of Present Illness History of Present Illness Rox Denson is a 73 year old female with seizure disorder that had multiple seizures recently at this point she is alert but when she got up she had severe back pain and cannot walk because of this pain. CT scan was done which showed a T12 compression fracture. At this point we are awaiting MRIs of her thoracic and lumbar spine. This will determine if we can do a kyphoplasty possibly Thursday. Review of Systems 2 Const: Denies: fever(s) or chills Eyes: Denies: change in vision ENMT: Denies: throat pain Card: Denies: chest pain Resp: Denies: dyspnea or productive cough GI: Denies: abdominal pain Musc: Denies: joint redness Skin/Breast: Reports: other (As noted in HPI) Medications/Allergies Home Medications Medication Instructions Recorded Confirmed Last Taken Type alendronate 70 mg tablet (Fosamax) 70 mg PO DAILY 10/03/19 12/03/23 11/30/23 History rosuvastatin 10 mg tablet 10 mg PO QPM 04/21/22 12/03/23 12/02/23 History berberine-herbal comb no.18 capsule See Rx Instructions .Route .COMPLEX 12/03/23 12/03/23 12/02/23 History calcium 250 mg-D3 400 1 tab PO TID 12/03/23 12/03/23 12/02/23 History unit-magnesium 40 nk-N2-Jg-copper-patel tablet cetirizine 10 mg tablet (Zyrtec) 10 mg PO DAILY 12/03/23 12/03/23 12/02/23 History clonazepam 0.5 mg tablet (Klonopin) 0.5 mg PO BEDTIME 12/03/23 12/04/23 12/02/23 History divalproex 500 mg tablet,delayed 500 mg PO QPM 12/03/23 12/03/23 12/02/23 History release folic acid 1 mg tablet 1 mg PO QPM 12/03/23 12/03/23 12/02/23 History lactobacillus combination no.4 3 3,000 mmu cells PO DAILY 03/04/2012/03/23 12/02/23 History billion cell capsule (Probiotic) levetiracetam 750 mg tablet 750 mg PO BEDTIME 12/03/23 12/03/23 12/02/23 History levothyroxine 50 mcg tablet 50 mcg PO QAM 12/03/23 12/03/23 12/02/23 History hxybeoxf-xhl-yawm-FA-Ca carb-vit K 1 tab PO TID 12/03/23 12/03/23 12/02/23 History 18 mg iron-400 mcg-500 mg tablet turmeric 400 mg capsule 400 mg PO QAM 12/03/23 12/03/23 12/02/23 History venlafaxine 37.5 mg 37.5 mg PO DAILY 12/03/23 12/03/23 12/02/23 History capsule,extended release 24 hr clonazepam 0.5 mg tablet 0.5 mg PO DAILY #30 tabs 12/04/23 Unknown Rx divalproex 500 mg tablet,extended 500 mg PO DAILY #30 tabs 12/04/23 Unknown Rx release 24 hr (Depakote ER) levetiracetam 500 mg 1,000 mg (2 x 500 mg) PO DAILY #60 12/04/23 Unknown Rx tablet,extended release 24 hr tabs Allergies Allergy/AdvReac Type Severity Reaction Status Date / Time sulfacetamide Allergy Intermediate ADR-Itching Verified 12/03/23 02:27 Latex, Natural Rubber Allergy Unknown Verified 12/03/23 03:12 Current Medications Generic Name Dose Route Start Last Admin Trade Name Arthurq PRN Reason Stop Dose Admin Acetaminophen 650 mg 12/03/23 07:22 12/05/23 08:29 Acetaminophen 325 Mg Tablet PO 650 mg Q6H PRN Administration Mild/Mod Pain Or Temp >/= 101 Aspirin 81 mg 12/03/23 09:00 12/05/23 08:29 Aspirin 81 Mg Ec Tablet PO 81 mg DAILY KENROY Administration Atorvastatin Calcium 40 mg 12/03/23 09:00 12/03/23 11:06 Atorvastatin 40 Mg Tablet PO 40 mg DAILY KENROY Administration Clonazepam 0.5 mg 12/03/23 21:00 12/04/23 22:11 Clonazepam 0.5 Mg Tablet PO 0.5 mg BEDTIME KENROY Administration Cyclobenzaprine HCl 5 mg 12/04/23 12:24 12/05/23 05:56 Cyclobenzaprine 10 Mg Tablet PO 5 mg TID PRN Administration MUSCLE SPASMS Divalproex Sodium 500 mg 12/04/23 21:00 12/04/23 22:10 Divalproex Er 500 Mg Tablet (24h) PO 500 mg BEDTIME KENROY Administration Enoxaparin Sodium 40 mg 12/03/23 07:30 12/05/23 08:29 Enoxaparin 40 Mg/0.4 Ml Syringe SUBCUT 40 mg Q24H KENROY Administration Folic Acid 1 mg 12/03/23 18:00 12/04/23 17:34 Folic Acid 1 Mg Tablet PO 1 mg QPM KENROY Administration Levetiracetam 500 mg 12/04/23 09:00 12/05/23 08:29 Levetiracetam 500 Mg Tablet PO 500 mg BID KENROY Administration Levothyroxine Sodium 88 mcg 12/03/23 09:00 12/05/23 08:29 Levothyroxine 88 Mcg Tablet PO 88 mcg DAILY KENROY Administration Pantoprazole Sodium 40 mg 12/03/23 14:35 12/05/23 09:41 Pantoprazole 40 Mg Sdv IVP 40 mg DAILY KENROY Administration Tramadol HCl 50 mg 12/04/23 12:20 12/05/23 05:57 Tramadol 50 Mg Tablet PO 50 mg Q8H PRN Administration MODERATE PAIN PFSH Acute 2 PFSH: Medical History (Updated 12/05/23 @ 10:56 by Ramesh Negron DO) Hypothyroidism ELLIOTT (obstructive sleep apnea) On CPAP: Optimal pressure 8cm, prescribed 6-12cm auto-titrating Cerebrovascular accident Elevated blood pressure reading without diagnosis of hypertension Multiple neurological symptoms Status post administration of all doses of COVID-19 vaccine series Actinic keratoses Areas on face treated with liquid nitrogen 06/2021 COVID-19 ~04/11/22, s/p treatment with Paxlovid Mixed stress and urge urinary incontinence Depression Hyperlipidemia Osteoporosis Epilepsy Plantar porokeratosis, acquired Surgical History History of oral surgery History of tonsillectomy History of total bilateral knee replacement Hx of hysterectomy Hx of lumpectomy History of bunionectomy Family History Sister , AT AGE 63 HEART ATTACK CAD (coronary artery disease) Denies family history of Clotting disorder Stroke Social History Smoking and tobacco/nicotine status: never used tobacco/nicotine Alcohol intake: never Substance/Drug Use: never Caregiver/support person: Yes (spouse) Household members: spouse Marital status: Current occupational status: retired Vitals/I&O/Wt Last Vital Signs Temp 98.4 F 12/05/23 08:00 Pulse 83 12/05/23 08:00 Resp 14 12/05/23 08:00 BP 146/71 12/05/23 08:00 Pulse Ox 92 12/05/23 08:00 O2 Del Method Room Air 12/05/23 08:00 12/04/23 12/05/23 12/05/23 22:59 06:59 14:59 Intake Total 120 / 1420 100 / 1520 120 / 120 Output Total 1175 / 1175 350 / 1525 Balance -1055 / 245 -250 / -5 120 / 120 Weight last 48 hrs Weight 210 lb 3 oz Weight 207 lb Physical Exam 2 Narrative: Bilateral lower extremities neurovascular intact. Pain to palpation over the T12 region. Urinary Catheter Management: Stewart: Cath Placed During This Visit: yes Reason for Continuing Indwelling Catheter: Acute Urinary Retention or Obstruction Urinary Catheter Date of Insertion: 12/03/23 Urinary Catheter Time of Insertion: 16:35 Data 12/05/23 02:30 12/05/23 02:30 Micro: Microbiology 12/03/23 16:30 Bacterial Antigens - Final Urine Kidney A&P Assessment and plan (1) T12 compression fracture: Awaiting MRIs to determine acuity and determine if kyphoplasty would be a treatment option. As well as to determine if there were more than 1 level fractures. Qualifiers: Encounter type: initial encounter Qualified Code(s): S22.080A - Wedge compression fracture of T11-T12 vertebra, initial encounter for closed fracture Consult Attestations 2 Medical Necessity Statement: Pain control Coding Level of Care Code Acute Code for Chg Fwd Diagnoses Compression fracture of T12 vertebra, initial encounter S22.080A Encounter type: initial encounter
--- NOTE | 2023-12-05 11:00 | MRR_ITS ---
PROCEDURE INFORMATION: Exam: MR Thoracic Spine Without Contrast Exam date and time: 12/05/2023 11:50 AM Age: 73 years old Clinical indication: Injury or trauma; Fall; Blunt trauma (contusions or hematomas); Additional info: T12 fracture, concern for pathological # TECHNIQUE: Imaging protocol: Magnetic resonance imaging of the thoracic spine without contrast. COMPARISON: MR lumbar spine wo con* [id number] 12/05/2023 11:18 AM NOTE: Counting of vertebra is from C1. This places the acute fracture at the L1 level. The most caudal lumbar type vertebra represents a supernumerary lumbar vertebra or lumbarized S1. Please note that cervical spine imaging for accurate numbering was not available at the time of the lumbar CT performed yesterday. FINDINGS: There are multiple chronic thoracic compression deformities, most prominent at T5. There is moderate T10 compression deformity that is likely acute on chronic. There is very subtle signal alteration involving the anterior aspect of T10. A nondisplaced fracture is present at the anteroinferior aspect of the T12 vertebral body, with adjacent marrow edema. The L1 vertebral compression fracture with retropulsion of bone into the canal (please see lumbar MRI report) is again noted. No compression of the thoracic spinal cord is identified. The tip of the conus is at the L1 level. As a result, despite moderate compression of the thecal sac, there is negligible mass effect on the conus by the retropulsed bone. MR/MR thoracic spin wo con* [id number] IMPRESSION: 1. Counting from C1, the acute fracture with retropulsed bone at the thoracolumbar junction involves the L1 vertebral body . Additional details are provided in the lumbar MRI report. 2. There is a nondisplaced fracture isolated to the anteroinferior aspect of the T12 vertebral body. 3. A very subtle fracture involving the anteroinferior aspect of T10 vertebral body may be relatively recent, and is likely superimposed on a mild chronic T10 vertebral compression deformity. 4. Chronic compression deformities in the midthoracic spine, most apparent at T5 and T7 with milder involvement at T6.
--- NOTE | 2023-12-05 11:00 | MRR_ITS ---
PROCEDURE INFORMATION: Exam: MR Lumbar Spine Without Contrast. Exam date and time: 12/05/2023 11:18 AM Age: 73 years old Clinical indication: Injury or trauma; Fall; Blunt trauma (contusions or hematomas); Additional info: Lumbar fracture TECHNIQUE: Imaging protocol: Magnetic resonance imaging of the lumbar spine without contrast. COMPARISON: CT lumbar spine wo con* [id number] 12/04/2023 2:19 PM NOTE: Counting of vertebra is from C1. The most caudal lumbar type vertebra represents a supernumerary lumbar vertebra or lumbarized S1. It will be designated S1 in this report. This places the acute fracture at the L1 level. Please note that cervical spine imaging for accurate numbering was not available at the time of the lumbar CT performed yesterday. FINDINGS: There is moderate compression of the L1 vertebral body similar in severity to that seen on the CT exam of the preceding day. There is retropulsion of bone into the canal, producing 30-40% narrowing of the AP diameter of the canal, also similar to the prior CT. Subtle marrow edema involves the anteroinferior aspect of the T12 vertebral body, associated with nondisplaced fracture. No loss of height at T12. No acute osseous abnormality involving the L2 through S2 vertebral segments. Mild multilevel degenerative disc disease produces variable degrees of mild to moderate impression on thecal sac. There is central canal stenosis at L3-L4 with moderately severe compression of the thecal sac by disc bulge, ligamentum flavum laxity, and facet DJD. Visualized cord, conus medullaris and cauda equina are unremarkable without compression. Unremarkable. MR/MR lumbar spine wo con* [id number] IMPRESSION: 1. Counting from the C1 level, the acute compression fracture is at the L1 level. There apparently is a lumbarized S1 segment. 2. The severity of the L1 vertebral compression and bone retropulsion do not appear significantly changed from CT exam of the previous day. 3. Very subtle nondisplaced fracture anteroinferior aspect of T12. 4. Chronic multilevel degenerative disc disease and facet DJD. These findings produce moderate central canal stenosis at L3-L4.
--- NOTE | 2023-12-05 13:44 | P.PN_ITS ---
Subjective 2 Subjective: No events overnight. Morning patient seen on [facility] floor. She is undergoing MRI today. Denies any nausea, vomiting, headache. Complaining of pain. Has been getting tramadol as per schedule. Vitals/I&O/Wt Last Vital Signs Temp 98.4 F 12/05/23 08:00 Pulse 83 12/05/23 08:00 Resp 14 12/05/23 08:00 BP 146/71 12/05/23 08:00 Pulse Ox 92 12/05/23 08:00 O2 Del Method Room Air 12/05/23 08:00 12/04/23 12/05/23 12/05/23 22:59 06:59 14:59 Intake Total 120 / 1420 100 / 1520 240 / 240 Output Total 1175 / 1175 350 / 1525 Balance -1055 / 245 -250 / -5 240 / 240 Weight last 48 hrs Weight 95.339 kg Weight 93.894 kg Physical Exam 2 Narrative: General: No acute distress,, drowsy possibly postictal, at bedside HEENT: PERRLA, pupils bilaterally equal and reactive Chest: Normal vesicular breath sounds, no added sounds, equal good air entry bilaterally CVS: S1-S2 regular, no murmurs, no tachycardia, no gallops, no rubs Abdomen: Soft, nontender, no organomegaly, bowel sounds present Neuro: No focal deficits, no facial deformity, Urinary Catheter Management: Stewart: Cath Placed During This Visit: yes Reason for Continuing Indwelling Catheter: Acute Urinary Retention or Obstruction Urinary Catheter Date of Insertion: 12/03/23 Urinary Catheter Time of Insertion: 16:35 Data 12/05/23 02:30 12/05/23 02:30 Micro: Microbiology 12/03/23 16:30 Bacterial Antigens - Final Urine Kidney A&P Assessment and plan (1) Status epilepticus: Resolved for now. No further epileptic activity seen on EEG. Found to have low valproic acid levels. CT head negative for any acute abnormality. TSH mildly elevated. Check respiratory viral panel, vitamin B12 levels, urine drug screen, urinalysis. Patient does give history of diarrhea recently. Will continue to monitor as needed will do stool studies. Check urine bacterial antigen. Appreciate neurology recommendations. Plan to transition to Keppra 5 mg oral twice daily, Depakote ER 500 mg every afternoon, Klonopin 0.5 every afternoon. IV Ativan 1 g every 6 hours as needed for seizure. Seizure precautions, fall precaution. Continue with oral diet. Stewart catheterization (2) Postictal confusion: Resolved. (3) Generalized seizure: (4) ELLIOTT (obstructive sleep apnea): Continue with home CPAP. (5) Back pain: Seen on physical therapy especially on ambulation. CT thoracic and lumbar spine shows T12 fracture concerning for pathological fracture along with L1 endplate fracture. Continue with physical therapy. Pain control with Flexeril every 8 hours as needed, tramadol 50 mg every 6 hours as needed. Will consult Dr. Negron for further recommendations. Plan for MRI thoracolumbar for further assessment. With concerns of pathological fracture appreciate recent vitamin D levels in the last 3 months. (6) T12 compression fracture: Qualifiers: Encounter type: initial encounter Qualified Code(s): S22.080A - Wedge compression fracture of T11-T12 vertebra, initial encounter for closed fracture Plan Plan for the day: Awaiting MRI thoracic and lumbar spine. Appreciate neurosurgical recommendations. Increase tramadol to 50 mg every 4 hours as needed, add morphine 1 mg every 6 hours as needed. Continue with antiseizure medications as before. Seizure precautions. Physical therapy. Appreciate electrolytes. Replace potassium with 40 mg oral. Patient developing mild hyponatremia. Will continue to monitor daily. Full code Regular diet Protonix for PUD prophylaxis Lovenox for DVT prophylaxis Attestations 2 Medical Necessity Statement*: Requires further hospitalization for management of seizure disorder was admitted for status epilepticus found to have T12 and L1 fracture while further treatment plan is sought as per MRI Diagnoses Status epilepticus G40.901 Postictal confusion F05 Generalized seizure R56.9 ELLIOTT (obstructive sleep apnea) G47.33 Back pain M54.9 Compression fracture of T12 vertebra, initial encounter S22.080A Encounter type: initial encounter
[2023-12-05] MEDS: potassium chloride ER 20 mEq Tablet 40 MEQ PO (14:10)
[2023-12-05] MEDS: morphine 4 mg/mL SDV 1 mL 1 MG IVP ×2 (16:25→23:00)
[2023-12-05] MEDS: folic acid 1 mg Tablet PO (17:57)
[2023-12-05] MEDS: CLONazepam 0.5 mg Tablet PO (20:37)
[2023-12-05] MEDS: divalproex ER 500 mg Tablet (24H) PO (20:37)
[2023-12-06] VITALS (11 sets, daily range): BP systolic 121–155; BP diastolic 69–81; PULSE 72–89; RESP 16–19; TEMP 36.2–37.3; O2SAT 90–97
[2023-12-06] MEDS: morphine 4 mg/mL SDV 1 mL 1 MG IVP ×4 (05:49→18:27)
[2023-12-06 06:07] LABS: Basophils # 0.1 10^3/uL (0.0-0.1); Basophils % 0.9 %; Eosinophils # 0.6 10^3/uL (0.0-0.8); Eosinophils % 11.1 %; Hematocrit 37.9 % (36-47); Lymphocytes # 1.2 10^3/uL (0.8-4.8); Lymphocytes % 22.4 %; Mean Corpuscular HGB Conc 32.7 g/dL (30-55); Mean Corpuscular Hemoglobin 29.4 pg (27-33); Mean Corpuscular Volume 89.8 fl (85-98); Mean Platelet Volume 9.9 fL (7.4-10.4); Monocytes # 0.4 10^3/uL (0.2-0.9); Monocytes % 7.7 %; Neutrophils # 3.06 10^3/uL (1.8-7.7); Neutrophils % 57.5 %; Nucleated Red Blood Cells % 0 %; Platelet Count 161 10^3/cmm (157-399); Red Blood Count 4.22 10^6/uL (3.85-5.65); Red Cell Distribution Width 12.9 % (12.1-15.1); White Blood Count 5.32 10^3/uL (3.29-11.43)
[2023-12-06 06:26] LABS: Magnesium 1.9 mg/dL (1.7-2.3)
[2023-12-06 06:27] LABS: Alanine Aminotransferase 11 U/L (0-33); Albumin Level 3.5 g/dL (3.5-5.2); Alkaline Phosphatase 60 U/L (35-105); Anion Gap 14.2 (5-19); Aspartate Amino Transferase 18 U/L (0-32); Blood Urea Nitrogen 8 mg/dL (8-23); Calcium 8.3 mg/dL (8.5-10.5); Carbon Dioxide 23 mmol/L (22-29); Chloride 104 mmol/L (98-107); Creatinine Clr Calc Pharmacy 71.8456; Globulin 2.5 g/dL (1.3-4.6); Glucose 94 mg/dL (65-115); Osmolality Calculated 282 mOsm/kg (285-295); Potassium 4.2 mmol/L (3.5-5.1); Sodium 137 mmol/L (136-145); Total Bilirubin 0.5 mg/dL (0.15-1.2)
[2023-12-06] MEDS: enoxaparin 40 mg/0.4 mL Syringe SUBCUT (08:10)
[2023-12-06] MEDS: TRAMadol 50 mg Tablet PO ×3 (08:11→19:43)
[2023-12-06] MEDS: cyclobenzaprine 10 mg Tablet 5 MG PO ×2 (08:12→15:29)
--- NOTE | 2023-12-06 09:17 | P.PN_ITS ---
Subjective 2 Subjective: MRI showed T11 and T12 compression fractures. At this point my plan is to do kyphoplasty discussed this with the patient. Vitals/I&O/Wt Last Vital Signs Temp 97.1 F L 12/06/23 07:45 Pulse 82 12/06/23 07:45 Resp 19 H 12/06/23 07:45 BP 125/69 12/06/23 07:45 Pulse Ox 95 12/06/23 07:45 O2 Del Method Nasal Cannula 12/06/23 07:45 O2 Flow Rate 2 12/05/23 20:00 12/05/23 12/06/23 12/06/23 21:59 06:59 14:59 Intake Total 100 / 100 Output Total Balance 100 / 100 Weight last 48 hrs Weight 204 lb 6.4 oz Weight 210 lb 3 oz Physical Exam 2 Narrative: Resting in bed Urinary Catheter Management: Stewart: Cath Placed During This Visit: yes Reason for Continuing Indwelling Catheter: Acute Urinary Retention or Obstruction Urinary Catheter Date of Insertion: 12/03/23 Urinary Catheter Time of Insertion: 16:35 Data 12/06/23 05:23 12/06/23 05:23 A&P Assessment and plan (1) T12 compression fracture: Patient has T11 and T12 compression fracture. At this point my plan is to do a kyphoplasty due to these levels. I had an open and honest discussion with the patient about the risks, benefits and alternatives to both surgical and nonsurgical treatment. The patient verbalized understanding of the inherent unpredictability associated with surgery. Risk of surgery were discussed including, but not limited to, infection, bleeding, temporary and permanent nerve damage, continued pain, stiffness, incomplete healing, need for revision surgery, blood clot and other complications. The patient verbalized understanding that there is spine is elective in nature and if they find any of these risks to be unacceptable then they should choose not to have the surgery. The patient verbalized understanding of these risks and elected to proceed with the surgery. Qualifiers: Encounter type: initial encounter Qualified Code(s): S22.080A - Wedge compression fracture of T11-T12 vertebra, initial encounter for closed fracture Attestations 2 Medical Necessity Statement*: Pain control Coding Level of Care Code Acute Code for Chg Fwd Diagnoses Compression fracture of T12 vertebra, initial encounter S22.080A Encounter type: initial encounter
[2023-12-06] MEDS: levETIRAcetam 500 mg Tablet PO ×2 (09:21→18:16)
[2023-12-06] MEDS: levothyroxine 88 mcg Tablet PO (09:21)
[2023-12-06] MEDS: aspirin 81 mg EC Tablet PO (09:21)
[2023-12-06] MEDS: pantoprazole 40 mg SDV IVP (09:55)
--- NOTE | 2023-12-06 13:26 | P.PN_ITS ---
Subjective 2 Subjective: No acute vents overnight. Today morning patient seen laying comfortably in bed. Patient states her pain level is around 4-5. She has been fed by her daughter. Patient states her appetite is not good and does not feel like eating but she denies any weakness in her arms or legs. Vitals/I&O/Wt Last Vital Signs Temp 97.5 F L 12/06/23 12:27 Pulse 89 12/06/23 12:27 Resp 18 12/06/23 12:27 BP 144/81 12/06/23 12:27 Pulse Ox 90 12/06/23 12:27 O2 Del Method Room Air 12/06/23 12:27 O2 Flow Rate 2 12/05/23 20:00 12/05/23 12/06/23 12/06/23 21:59 06:59 14:59 Intake Total 220 / 220 Output Total Balance 220 / 220 Weight last 48 hrs Weight 92.714 kg Weight 95.339 kg Physical Exam 2 Narrative: General: No acute distress, AO x 3, laying comfortably in bed with family at bedside, HEENT: PERRLA, pupils bilaterally equal and reactive Chest: Normal vesicular breath sounds, no added sounds, equal good air entry bilaterally CVS: S1-S2 regular, no murmurs, no tachycardia, no gallops, no rubs Abdomen: Soft, nontender, no organomegaly, bowel sounds present Neuro: No focal deficits, no facial deformity, power 5/5 in upper limbs, lower limb 4/5 Urinary Catheter Management: Stewart: Cath Placed During This Visit: yes Reason for Continuing Indwelling Catheter: Acute Urinary Retention or Obstruction Urinary Catheter Date of Insertion: 12/03/23 Urinary Catheter Time of Insertion: 16:35 Data 12/06/23 05:23 12/06/23 05:23 A&P Assessment and plan (1) Status epilepticus: Resolved for now. No further epileptic activity seen on EEG. Found to have low valproic acid levels. CT head negative for any acute abnormality. TSH mildly elevated. Check respiratory viral panel, vitamin B12 levels, urine drug screen, urinalysis. Patient does give history of diarrhea recently. Will continue to monitor as needed will do stool studies. Check urine bacterial antigen. Appreciate neurology recommendations. Plan to transition to Keppra 5 mg oral twice daily, Depakote ER 500 mg every afternoon, Klonopin 0.5 every afternoon. IV Ativan 1 g every 6 hours as needed for seizure. Seizure precautions, fall precaution. Continue with oral diet. Stewart catheterization (2) Postictal confusion: Resolved. (3) Generalized seizure: (4) ELLIOTT (obstructive sleep apnea): Continue with home CPAP. (5) Back pain: Seen on physical therapy especially on ambulation. CT thoracic and lumbar spine shows T12 fracture concerning for pathological fracture along with L1 endplate fracture. Continue with physical therapy. Pain control with Flexeril every 8 hours as needed, tramadol 50 mg every 6 hours as needed. Will consult Dr. Negron for further recommendations. Plan for MRI thoracolumbar for further assessment. With concerns of pathological fracture appreciate recent vitamin D levels in the last 3 months. (6) T12 compression fracture: Qualifiers: Encounter type: initial encounter Qualified Code(s): S22.080A - Wedge compression fracture of T11-T12 vertebra, initial encounter for closed fracture Plan Plan for the day: Appreciate MRI lumbar and thoracic spine results. Concerning for fracture at 2 levels and thoracic MRI. Continue with current medications. No further seizures. Continue with current seizure medications along with seizure precautions. N.p.o. after midnight for kyphoplasty in AM. Continue with physical therapy. Full code Regular diet Protonix for PUD prophylaxis Lovenox for DVT prophylaxis Attestations 2 Medical Necessity Statement*: Requires further hospitalization for management of thoracic vertebral fracture requiring kyphoplasty in a patient who was admitted for status epilepticus Diagnoses Status epilepticus G40.901 Postictal confusion F05 Generalized seizure R56.9 ELLIOTT (obstructive sleep apnea) G47.33 Back pain M54.9 Compression fracture of T12 vertebra, initial encounter S22.080A Encounter type: initial encounter
[2023-12-06] MEDS: folic acid 1 mg Tablet PO (18:16)
[2023-12-06] MEDS: divalproex ER 500 mg Tablet (24H) PO (21:16)
[2023-12-06] MEDS: CLONazepam 0.5 mg Tablet PO (21:16)
[2023-12-07] VITALS (23 sets, daily range): BP systolic 122–151; BP diastolic 62–86; PULSE 84–98; RESP 14–24; TEMP 36.3–36.8; O2SAT 90–96
--- NOTE | 2023-12-07 | XR_ITS ---
WS: [id number] C-ARM RADIOGRAPHS THORACOLUMBAR JUNCTION; 4 IMAGES HISTORY: OR PICS COMPARISON: None available. Intraoperative imaging during spine procedure. On the images submitted methylmethacrylate is noted wi thin what is probably T12 and L1. IMPRESSION: Intraoperative imaging during methylmethacrylate injection.
[2023-12-07] MEDS: cyclobenzaprine 10 mg Tablet 5 MG PO ×3 (00:02→21:11)
[2023-12-07 03:17] LABS: Basophils % 0.9 %; Eosinophils # 0.6 10^3/uL (0.0-0.8); Eosinophils % 13.2 %; Hematocrit 38.7 % (36-47); Lymphocytes # 1.1 10^3/uL (0.8-4.8); Lymphocytes % 23.5 %; Mean Corpuscular HGB Conc 31.8 g/dL (30-55); Mean Corpuscular Volume 91.3 fl (85-98); Mean Platelet Volume 10.1 fL (7.4-10.4); Monocytes # 0.4 10^3/uL (0.2-0.9); Monocytes % 7.9 %; Neutrophils # 2.47 10^3/uL (1.8-7.7); Neutrophils % 54.1 %; Nucleated Red Blood Cells % 0 %; Platelet Count 178 10^3/cmm (157-399); Red Blood Count 4.24 10^6/uL (3.85-5.65); Red Cell Distribution Width 12.7 % (12.1-15.1); White Blood Count 4.56 10^3/uL (3.29-11.43)
[2023-12-07 03:53] LABS: Alanine Aminotransferase 11 U/L (0-33); Albumin Level 3.5 g/dL (3.5-5.2); Alkaline Phosphatase 61 U/L (35-105); Anion Gap 14.2 (5-19); Aspartate Amino Transferase 14 U/L (0-32); Blood Urea Nitrogen 9 mg/dL (8-23); Calcium 8.7 mg/dL (8.5-10.5); Carbon Dioxide 27 mmol/L (22-29); Chloride 98 mmol/L (98-107); Creatinine Clr Calc Pharmacy 71.8456; Globulin 2.7 g/dL (1.3-4.6); Glucose 92 mg/dL (65-115); Osmolality Calculated 278 mOsm/kg (285-295); Potassium 4.2 mmol/L (3.5-5.1); Sodium 135 mmol/L (136-145); Total Bilirubin 0.5 mg/dL (0.15-1.2); Total Protein 6.2 g/dL (6.6-8.7)
[2023-12-07] MEDS: morphine 4 mg/mL SDV 1 mL 1 MG IVP ×2 (04:43→10:41)
[2023-12-07] MEDS: TRAMadol 50 mg Tablet PO ×2 (04:48→09:17)
[2023-12-07] MEDS: aspirin 81 mg EC Tablet PO (09:17)
[2023-12-07] MEDS: levothyroxine 88 mcg Tablet PO (09:18)
[2023-12-07] MEDS: levETIRAcetam 500 mg Tablet PO ×2 (09:18→17:21)
[2023-12-07] MEDS: pantoprazole 40 mg SDV IVP (09:18)
--- NOTE | 2023-12-07 11:08 | PC.NURSE ---
patient taken to preop via bed.
--- NOTE | 2023-12-07 11:09 | PC.SOCIAL ---
IMM Updated Updated pt & on IMM. No questions voiced. Provided pt a copy. Initialed, dated, & timed copy in chart.
--- NOTE | 2023-12-07 11:48 | W.PM.OPSUD ---
Surgery/Procedure H&P Update DATE OF PROCEDURE: December 07, 2023 DATE H&P PERFORMED: 11/28/23 H&P UPDATE INFORMATION: I have reviewed H&P completed within last 30 days, I have examined patient prior to procedure and No changes to prior documentation PREOP DIAGNOSIS: Thoracic 11 thoracic 12 compression fracture PLANNED PROCEDURE: Operation Date: 12/07/23 11:45 Proposed Procedures p T11-T12 Kyphoplasty(Not Applicable) - Ramesh Negron DO
[2023-12-07] MEDS: sodium chloride 0.9% 1,000 ML 30 ML IV (11:49)
--- NOTE | 2023-12-07 12:16 | P.ANESASSM_ITS ---
Pre-Anesthetic Assessment Height/Weight: Height 1.68 m Weight 98.021 kg Temp Pulse Resp BP Pulse Ox O2 Del Method O2 Flow Rate 97.4 F L 86 18 137/73 92 Nasal Cannula 2 12/07/23 11:30 12/07/23 11:30 12/07/23 11:30 12/07/23 11:30 12/07/23 11:30 12/07/23 11:30 12/06/23 19:59 Preop Diagnosis: Thoracic 11 thoracic 12 compression fracture Operation Date: 12/07/23 11:45 Proposed Procedures p T11-T12 Kyphoplasty(Not Applicable) - Ramesh Negron DO Familial anesthetic complications: None Was Beta Maria Isabel taken within 24 hours: N/A Was Clonidine taken within 24 hours: N/A Last intake: > 8hrs Social No alcohol and No tobacco Exam alert, oriented x 3, clear to auscultation bilaterally and regular rate & rhythm Airway Mallampati: Class II Dentition: full Metabolic Hyperlipidemia and Thyroid Disease Neuropsych Seizure Anesthetic Plan ASA status: 3 Anesthesia: General Risk of > 500 ml blood loss (7ml/kg in children): No Medications/Allergies Home Medications Medication Instructions Recorded Confirmed Last Taken Type alendronate 70 mg tablet (Fosamax) 70 mg PO DAILY 10/03/19 12/03/23 11/30/23 History rosuvastatin 10 mg tablet 10 mg PO QPM 04/21/22 12/03/23 12/02/23 History berberine-herbal comb no.18 capsule See Rx Instructions .Route .COMPLEX 12/03/23 12/03/23 12/02/23 History calcium 250 mg-D3 400 1 tab PO TID 12/03/23 12/03/23 12/02/23 History unit-magnesium 40 [id number]-[id number]-copper-patel tablet cetirizine 10 mg tablet (Zyrtec) 10 mg PO DAILY 12/03/23 12/03/23 12/02/23 History clonazepam 0.5 mg tablet (Klonopin) 0.5 mg PO BEDTIME 12/03/23 12/04/23 12/02/23 History divalproex 500 mg tablet,delayed 500 mg PO QPM 12/03/23 12/03/23 12/02/23 History release folic acid 1 mg tablet 1 mg PO QPM 12/03/23 12/03/2312/01/24 History lactobacillus combination no.4 3 3,000 mmu cells PO DAILY 12/03/23 12/03/23 12/02/23 History billion cell capsule (Probiotic) levetiracetam 750 mg tablet 750 mg PO BEDTIME 12/03/23 12/03/23 12/02/23 History levothyroxine 50 mcg tablet 50 mcg PO QAM 12/03/23 12/03/23 12/02/23 History [id number]-azu-irhw-FA-Ca carb-vit K 1 tab PO TID 12/03/23 12/03/23 12/02/23 History 18 mg iron-400 mcg-500 mg tablet turmeric 400 mg capsule 400 mg PO QAM 12/03/23 12/03/23 12/02/23 History venlafaxine 37.5 mg 37.5 mg PO DAILY 12/03/23 12/03/23 12/02/23 History capsule,extended release 24 hr clonazepam 0.5 mg tablet 0.5 mg PO DAILY #30 tabs 12/04/23 Unknown Rx divalproex 500 mg tablet,extended 500 mg PO DAILY #30 tabs 12/04/23 Unknown Rx release 24 hr (Depakote ER) levetiracetam 500 mg 1,000 mg (2 x 500 mg) PO DAILY #60 12/04/23 Unknown Rx tablet,extended release 24 hr tabs Allergies Allergy/AdvReac Type Severity Reaction Status Date / Time sulfacetamide Allergy Intermediate ADR-Itching Verified 12/03/23 02:27 Latex, Natural Rubber Allergy Unknown Verified 12/03/23 03:12 Current Medications Generic Name Dose Route Start Last Admin Trade Name Arthurq PRN Reason Stop Dose Admin Acetaminophen 650 mg 12/03/23 07:22 12/05/23 08:29 Acetaminophen 325 Mg Tablet PO 650 mg Q6H PRN Administration Mild/Mod Pain Or Temp >/= 101 Aspirin 81 mg 12/03/23 09:00 12/07/23 09:17 Aspirin 81 Mg Ec Tablet PO 81 mg DAILY KENROY Administration Atorvastatin Calcium 40 mg 12/03/23 09:00 12/03/23 11:06 Atorvastatin 40 Mg Tablet PO 40 mg DAILY KENROY Administration Clonazepam 0.5 mg 12/03/23 21:00 12/06/23 21:16 Clonazepam 0.5 Mg Tablet PO 0.5 mg BEDTIME KENROY Administration Cyclobenzaprine HCl 5 mg 12/04/23 12:24 12/07/23 09:25 Cyclobenzaprine 10 Mg Tablet PO 5 mg TID PRN Administration MUSCLE SPASMS Divalproex Sodium 500 mg 12/04/23 21:00 12/06/23 21:16 Divalproex Er 500 Mg Tablet (24h) PO 500 mg BEDTIME KENROY Administration Enoxaparin Sodium 40 mg 12/03/23 07:30 12/07/23 06:43 Enoxaparin 40 Mg/0.4 Ml Syringe SUBCUT Not Given Q24H KENROY Folic Acid 1 mg 12/03/23 18:00 12/06/23 18:16 Folic Acid 1 Mg Tablet PO 1 mg QPM KENROY Administration Sodium Chloride 1,000 mls @ 30 mls/hr 12/07/23 11:15 12/07/23 11:49 Sodium Chloride 0.9% IV 12/08/23 11:14 30 mls/hr .Q24H KENROY Administration Levetiracetam 500 mg 12/04/23 09:00 12/07/23 09:18 Levetiracetam 500 Mg Tablet PO 500 mg BID KENROY Administration Levothyroxine Sodium 88 mcg 12/03/23 09:00 12/07/23 09:18 Levothyroxine 88 Mcg Tablet PO 88 mcg DAILY KENROY Administration Morphine Sulfate 1 mg 12/05/23 13:43 12/07/23 10:41 Morphine 4 Mg/Ml Sdv 1 Ml IVP 1 mg Q6H PRN Administration SEVERE PAIN Pantoprazole Sodium 40 mg 12/03/23 14:35 12/07/23 09:18 Pantoprazole 40 Mg Sdv IVP 40 mg DAILY KENROY Administration Tramadol HCl 50 mg 12/05/23 13:43 12/07/23 09:17 Tramadol 50 Mg Tablet PO 50 mg Q4H PRN Administration MODERATE PAIN PFSH Anesthesia Medical History (Updated 12/05/23 @ 10:56 by Ramesh Negron DO) Hypothyroidism ELLIOTT (obstructive sleep apnea) On CPAP: Optimal pressure 8cm, prescribed 6-12cm auto-titrating Cerebrovascular accident Elevated blood pressure reading without diagnosis of hypertension Multiple neurological symptoms Status post administration of all doses of COVID-19 vaccine series Actinic keratoses Areas on face treated with liquid nitrogen 06/2021 COVID-19 ~04/11/22, s/p treatment with Paxlovid Mixed stress and urge urinary incontinence Depression Hyperlipidemia Osteoporosis Epilepsy Plantar porokeratosis, acquired Surgical History History of oral surgery History of tonsillectomy History of total bilateral knee replacement Hx of hysterectomy Hx of lumpectomy History of bunionectomy Family History Sister , AT AGE 63 HEART ATTACK CAD (coronary artery disease) Denies family history of Clotting disorder Stroke Social History Smoking and tobacco/nicotine status: never used tobacco/nicotine Alcohol intake: never Substance/Drug Use: never Caregiver/support person: Yes (spouse) Household members: spouse Marital status: Current occupational status: retired Data Anesthesia 12/07/23 02:19 12/07/23 02:19 Short CBC 12/06/23 12/07/23 Range/Units 05:23 02:19 WBC 5.32 4.56 (3.29-11.43) 10^3/uL Hgb 12.40 12.30 (11.27-16.99) g/dL Hct 37.9 38.7 (36-47) % MCV 89.8 91.3 (85-98) fl Plt Count 161 178 (157-399) 10^3/cmm Neut % (Auto) 57.5 54.1 % Neut # (Auto) 3.06 2.47 (1.8-7.7) 10^3/uL BMP 12/06/23 12/07/23 05:23 02:19 Sodium 137 135 L Potassium 4.2 4.2 Chloride 104 98 Carbon Dioxide 23 27 BUN 8 9 Creatinine 0.5 0.5 Glucose 94 92 Calcium 8.3 L 8.7 Liver Function 12/06/23 12/07/23 Range/Units 05:23 02:19 Total Bilirubin 0.5 0.5 (0.15-1.2) mg/dL AST 18 14 (0-32) U/L ALT 11 11 (0-33) U/L Alkaline Phosphatase 60 61 (35-105) U/L Albumin 3.5 3.5 (3.5-5.2) g/dL Cardiac Studies: 2 Echocardiogram 04/22/22
[2023-12-07] MEDS: ceFAZolin 2,000 MG in sodium chloride 0.9% (plus) 50 ML 100 MG IV (12:21)
[2023-12-07] MEDS: iohexol 300 mg/mL 50 mL Btl XX (13:09)
[2023-12-07] MEDS: lidocaine-epi 1% 20 mL INJ (13:09)
--- NOTE | 2023-12-07 14:10 | ANE.PACU2 ---
Inpatient post-anesthesia follow up: Airway intact: Yes Vital signs: Temperature 97.7 F Pulse Rate 85 Respiratory Rate 14 Blood Pressure 141/73 Pulse Oximetry 94 Oxygen Delivery Me thod Nasal Cannula Oxygen Flow Rate 3 Fraction of Inspir ed Oxygen Hydration adequate: Yes Nausea and vomiting: No Pain level: 1 Mental status: Baseline
--- NOTE | 2023-12-07 14:14 | PM.OP ---
Operative Report Date of procedure: December 07, 2023 Pre-op diagnosis: 1. T11 wedge osteoporotic traumatic compression fracture 2. T12 wedge osteoporotic traumatic compression fracture Post-op diagnosis: same Procedure done: 1. T11 kyphoplasty 2. T12 kyphoplasty Surgeon: Ramesh Negron DO Estimated blood loss (mL): 5 Procedure: 1. T11 kyphoplasty 2. T12 kyphoplasty Patient brought the op suite after undergoing anesthesia was placed in prone position. All his impingement well-padded. Patient prepped draped normal sterile fashion. Attention was brought to the T11 level. Skin incision made over the pedicle and then the awl was inserted. Followed by the drill. Followed by the balloon which was inflated deflated. Then cement was injected. Next tension was brought to the T12 level. This level skin incision was made over the pedicle the awl was inserted. Followed by the biopsy tube. Followed by the drill. Followed by balloon. Followed by the cement. AP lateral fluoroscopy ensured that the cement was in good position. Biopsy was sent off to T12 biopsy. Wounds were irrigated and a stitch was thrown in each incision. Sterile dressings were applied and patient transferred to PACU in stable condition.
--- NOTE | 2023-12-07 15:26 | P.PN_ITS ---
Subjective 2 Subjective: Having back pain, no other complaints. Denies difficulty breathing, chest pain or pressure. Vitals/I&O/Wt Last Vital Signs Temp 97.7 F 12/07/23 13:58 Pulse 85 12/07/23 14:36 Resp 14 12/07/23 14:36 BP 141/73 12/07/23 14:08 Pulse Ox 94 12/07/23 14:36 O2 Del Method Nasal Cannula 12/07/23 14:36 O2 Flow Rate 3 12/07/23 14:36 12/07/23 12/07/23 12/07/23 06:59 14:59 22:59 Intake Total 100 / 100 Output Total 600 / 1100 5 / 5 Balance -600 / -520 95 / 95 Weight last 48 hrs Weight 98.021 kg Weight 92.714 kg Physical Exam 2 Narrative: Accompanied by family. Supine in bed. Const: COMMON NORMALS: patient oriented x3 and alert GENERAL APPEARANCE: c ooperative ORIENTATION/CONSCIOUSNESS: Yes awake HENMT: COMMON NORMALS: oropharynx normal Neck/C-Spine: COMMON NORMALS: no JVD Resp: COMMON NORMALS: normal respiratory effort and clear to auscultation bilaterally AUSCULTATION: clear to auscultation bilaterally Cardio: COMMON NORMALS: no JVD, regular rhythm, S1 normal heart sound present, S2 normal heart sound present and No murmurs present (Cardio) RHYTHM: regular rhythm HEART SOUNDS: S1 normal heart sound present and S2 normal heart sound present GI: COMMON NORMALS: Normal to inspection, nondistended, normoactive bowel sounds present, Soft to palpation and non-tender PALPATION: Yes Soft to palpation Extremity: COMMON NORMALS: no joint enlargement and no pedal edema Neuro: COMMON NORMALS: patient oriented x3 and moves all extremities S ENSORIUM/ORIENTATION: Yes alert Skin: COMMON NORMALS: no rashes or lesions noted GENERAL SKIN EXAM: no rashes or lesions noted Urinary Catheter Management: Stewart: Cath Placed During This Visit: yes Reason for Continuing Indwelling Catheter: Other Urinary Catheter Date of Insertion: 12/03/23 Urinary Catheter Time of Insertion: 16:35 Data 12/07/23 02:19 12/07/23 02:19 A&P Assessment and plan (1) T12 compression fracture: Planned kyphoplasty today due to persistent pain with vertebral fracture. Continue to optimize pain control. Discussed with sample case porter. Qualifiers: Encounter type: initial encounter Qualified Code(s): S22.080A - Wedge compression fracture of T11-T12 vertebra, initial encounter for closed fracture (2) Back pain: Planned kyphoplasty today for vertebral fracture affecting ability to ambulate, persistent pain. Reviewed orthopedic note. Continue physical therapy especially on ambulation. Continue pain control, acetaminophen, Flexeril, tramadol, Hydrocodone was also added. IV morphine for severe breakthrough. CT thoracic and lumbar spine shows T12 fracture concerning for pathological fracture along with L1 endplate fracture. Continue with physical therapy. Add incentive spirometer. Discussed with sample case porter. With concerns of pathological fracture appreciate recent vitamin D levels in the last 3 months. Reviewed MRI thoracic spine. Reviewed MRI lumbar spine. Acute fracture with retropulsed bone at thoracolumbar junction. Involving L1 vertebral body. Nondisplaced fracture anterior aspect of T12 vertebral body. Subtle fracture anterior inferior aspect of T10. Mild chronic T10 vertebral compression deformity. Chronic compression deformity in mid thoracic spine most apparent at T5 and T7 with mild involvement of T6. Multilevel DJD. Moderate central canal stenosis L3-4. (3) Status epilepticus: Resolved for now. Reviewed CBC, CMP. Continue Depakote, Keppra. Follow-up with neurology. Reviewed respiratory viral panel, vitamin B12 levels, urine drug screen, urinalysis. Found to have low valproic acid levels. CT head negative for any acute abnormality. TSH mildly elevated. Diarrhea recently. Will continue to monitor as needed will do stool studies. Reviewed urine bacterial antigen. Appreciate neurology recommendations. Seizure precautions, fall precaution. Continue with oral diet. Stewart catheterization (4) Postictal confusion: Resolved. (5) Generalized seizure: (6) ELLIOTT (obstructive sleep apnea): Continue with home CPAP. Plan Full code Regular diet Protonix for PUD prophylaxis Lovenox for DVT prophylaxis Attestations 2 Medical Necessity Statement*: Continue admission for assessment management of acute compression fracture, persistent back pain affecting ability to ambulate. and High MDM includes amount and/or complexity of data reviewed/ordered [ previous or external records, resulted lab(s)/test(s), ordered lab(s)/test(s) and other healthcare professional discussion] and described risk of complication, morbidity or mortality of management as documented Diagnoses Compression fracture of T12 vertebra, initial encounter S22.080A Encounter type: initial encounter Back pain M54.9 Status epilepticus G40.901 Postictal confusion F05 Generalized seizure R56.9 ELLIOTT (obstructive sleep apnea) G47.33
[2023-12-07] MEDS: lactated ringers 1,000 ML 90 ML IV (17:18)
[2023-12-07] MEDS: docusate sodium 100 mg Capsule PO (17:21)
[2023-12-07] MEDS: folic acid 1 mg Tablet PO (17:21)
[2023-12-07] MEDS: CLONazepam 0.5 mg Tablet PO (21:11)
[2023-12-07] MEDS: divalproex ER 500 mg Tablet (24H) PO (21:11)
[2023-12-07] MEDS: HYDROcodone-acetaminophen 5-325 mg Tablet PO (21:11)
[2023-12-08] VITALS (8 sets, daily range): BP systolic 111–137; BP diastolic 63–75; PULSE 73–93; RESP 16–18; TEMP 36.3–36.8; O2SAT 88–99
[2023-12-08 05:55] LABS: Anion Gap 14.7 (5-19); Blood Urea Nitrogen 10 mg/dL (8-23); Calcium 8.5 mg/dL (8.5-10.5); Carbon Dioxide 26 mmol/L (22-29); Chloride 101 mmol/L (98-107); Creatinine Clr Calc Pharmacy 73.7471; Glucose 123 mg/dL (65-115); Osmolality Calculated 284 mOsm/kg (285-295); Potassium 4.7 mmol/L (3.5-5.1); Sodium 137 mmol/L (136-145)
[2023-12-08 05:57] LABS: Basophils % 0.5 %; Hematocrit 37.9 % (36-47); Lymphocytes # 0.6 10^3/uL (0.8-4.8); Lymphocytes % 13.5 %; Mean Corpuscular HGB Conc 32.2 g/dL (30-55); Mean Platelet Volume 9.9 fL (7.4-10.4); Monocytes # 0.3 10^3/uL (0.2-0.9); Monocytes % 7.4 %; Neutrophils # 3.18 10^3/uL (1.8-7.7); Neutrophils % 77.9 %; Nucleated Red Blood Cells % 0 %; Platelet Count 204 10^3/cmm (157-399); Red Blood Count 4.21 10^6/uL (3.85-5.65); Red Cell Distribution Width 12.4 % (12.1-15.1); White Blood Count 4.08 10^3/uL (3.29-11.43)
[2023-12-08] MEDS: lactated ringers 1,000 ML 90 ML IV (06:15)
--- NOTE | 2023-12-08 07:38 | P.PN_ITS ---
Subjective 2 Subjective: Patient's pain in back is improved. Vitals/I&O/Wt Last Vital Signs Temp 97.4 F L 12/08/23 03:57 Pulse 73 12/08/23 03:57 Resp 18 12/08/23 03:57 BP 119/65 12/08/23 03:57 Pulse Ox 98 12/08/23 03:57 O2 Del Method Nasal Cannula 12/08/23 03:57 O2 Flow Rate 2 12/07/23 20:00 12/07/23 12/08/23 12/08/23 22:59 06:59 14:59 Intake Total 910 / 1010 1240 / 2250 Output Total 2700 / 2705 Balance 910 / 1005 -1460 / -455 Weight last 48 hrs Weight 215 lb Weight 216 lb 1.6 oz Physical Exam 2 Narrative: Resting in bed comfortably Urinary Catheter Management: Stewart: Cath Placed During This Visit: yes Reason for Continuing Indwelling Catheter: Required Immobilization for Trauma or Surgery or Anesthesia Urinary Catheter Date of Insertion: 12/03/23 Urinary Catheter Time of Insertion: 16:35 Data 12/08/23 04:23 12/08/23 04:23 A&P Assessment and plan (1) T12 compression fracture: Postop day #1 T12 and L1 kyphoplasty Okay to discharge from orthopedic standpoint Follow-up in clinic in 2 weeks. Qualifiers: Encounter type: initial encounter Qualified Code(s): S22.080A - Wedge compression fracture of T11-T12 vertebra, initial encounter for closed fracture Attestations 2 Medical Necessity Statement*: Per primary service Coding Level of Care Code Acute Code for [facility] Fwd Diagnoses Compression fracture of T12 vertebra, initial encounter S22.080A Encounter type: initial encounter
[2023-12-08] MEDS: enoxaparin 40 mg/0.4 mL Syringe SUBCUT (08:17)
[2023-12-08] MEDS: levETIRAcetam 500 mg Tablet PO ×2 (08:18→17:00)
[2023-12-08] MEDS: aspirin 81 mg EC Tablet PO (08:18)
[2023-12-08] MEDS: levothyroxine 88 mcg Tablet PO (08:18)
[2023-12-08] MEDS: atorvastatin 40 mg Tablet PO (08:18)
[2023-12-08] MEDS: pantoprazole 40 mg SDV IVP (08:18)
[2023-12-08] MEDS: cyclobenzaprine 10 mg Tablet 5 MG PO ×2 (08:43→17:00)
[2023-12-08] MEDS: HYDROcodone-acetaminophen 5-325 mg Tablet PO ×2 (08:43→20:52)
--- NOTE | 2023-12-08 10:35 | PC.NURSE ---
Assisted patient to bathroom utilizing FWW. Patient required guidance and verbal cues only with FWW and gait belt as needed. She was able to utilize proper techniques to stand and sit and was able to pull her pants down and up independently. Patient then ambulated with FWW back to bed. Assisted into bed with 1x assist and utilized proper techniques for side-lying prior to laying supine when getting into bed. Patient tolerated procedure well overall and c/o minimal dyspnea and weakness. Call light provided, siderails x2, OTB table provided with basic needs. Patient and spouse deny questions/concerns at this time.
[2023-12-08] MEDS: FUROsemide 10 mg/mL SDV 2mL 20 MG IVP (10:42)
[2023-12-08] MEDS: TRAMadol 50 mg Tablet PO (12:35)
--- NOTE | 2023-12-08 14:41 | P.PN_ITS ---
Subjective 2 Subjective: She is doing much better in terms of back pain. She is not short of breath at rest but has been requiring continuous oxygen. Desaturated with exertion. Vitals/I&O/Wt Last Vital Signs Temp 98.2 F 12/08/23 11:46 Pulse 75 12/08/23 11:46 Resp 16 12/08/23 11:46 BP 123/72 12/08/23 11:46 Pulse Ox 99 12/08/23 11:46 O2 Del Method Nasal Cannula 12/08/23 11:46 O2 Flow Rate 3 12/08/23 10:32 12/07/23 12/08/23 12/08/23 22:59 06:59 14:59 Intake Total 910 / 1010 1240 / 2250 240 / 240 Output Total 2700 / 2705 Balance 910 / 1005 -1460 / -455 240 / 240 Weight last 48 hrs Weight 97.522 kg Weight 98.021 kg Physical Exam 2 Narrative: Accompanied by family. Sitting up in a chair. Const: COMMON NORMALS: patient oriented x3 and alert GENERAL APPEARANCE: c ooperative ORIENTATION/CONSCIOUSNESS: Yes awake HENMT: COMMON NORMALS: oropharynx normal Neck/C-Spine: COMMON NORMALS: no JVD Resp: AUSCULTATION: crackles Laterality: left (lower) Cardio: COMMON NORMALS: no JVD, regular rhythm, S1 normal heart sound present, S2 normal heart sound present and No murmurs present (Cardio) RHYTHM: regular rhythm HEART SOUNDS: S1 normal heart sound present and S2 normal heart sound present GI: COMMON NORMALS: Normal to inspection, nondistended, normoactive bowel sounds present, Soft to palpation and non-tender PALPATION: Yes Soft to palpation Extremity: COMMON NORMALS: no joint enlargement and no pedal edema Neuro: COMMON NORMALS: patient oriented x3 and moves all extremities S ENSORIUM/ORIENTATION: Yes alert Skin: COMMON NORMALS: no rashes or lesions noted GENERAL SKIN EXAM: no rashes or lesions noted Urinary Catheter Management: Stewart: Cath Placed During This Visit: yes, but has since been removed by the nurse Reason for Continuing Indwelling Catheter: Required Immobilization for Trauma or Surgery or Anesthesia Urinary Catheter Date of Insertion: 12/03/23 Urinary Catheter Time of Insertion: 16:35 Date Urinary Catheter Removed: 12/08/23 Time Urinary Catheter Discontinued: 07:15 Data 12/08/23 04:23 12/08/23 04:23 A&P Assessment and plan (1) Hypoxia: Consideration for discharge home today and has been cleared for discharge from orthopedic standpoint, however, he still requiring maintenance nasal cannula oxygen this morning at 3 L nasal cannula, not normally on oxygen. Also with desaturation with ambulation. Crackles on exam more so in left lower lung. Discussed with her and family. Possibly some combination of fluid overload, possible diastolic congestive heart failure, stopped periprocedural IV fluid. Gave Lasix 20 mg IV Lasix push, reassess electrolytes with risk of electrolyte abnormality, reassess volume status with risk of hypokalemia, reassess kidney function. Atelectasis, recovery from anesthesia. Obtain chest x-ray. Encourage incentive spirometer for atelectasis. Chest x-ray reviewed, noted unchanged scarring and/or subsegmental atelectasis of left lower lung. She otherwise has been afebrile without leukocytosis, without symptoms of pneumonia. Given persistent requirement for 2 L nasal cannula oxygen, dyspnea on exertion will additionally assess TTE. Monitor oxygenation. Reviewed vitals, CBC, BMP, chest x-ray, orthopedic note. Discussed with case preparer and liner. (2) T12 compression fracture: Status post kyphoplasty today due to persistent pain with vertebral fracture. Significant improvement in pain. Continue to optimize pain control. Reviewed orthopedic note, cleared for discharge. Discussed with patient and family. Discussed with case preparer and liner. Qualifiers: Encounter type: initial encounter Qualified Code(s): S22.080A - Wedge compression fracture of T11-T12 vertebra, initial encounter for closed fracture (3) Back pain: Status post kyphoplasty with improvement. Continue physical therapy especially on ambulation. Continue pain control, acetaminophen, Flexeril, tramadol, Hydrocodone was also added. IV morphine for severe breakthrough. CT thoracic and lumbar spine shows T12 fracture concerning for pathological fracture along with L1 endplate fracture. Continue with physical therapy. Add incentive spirometer. Discussed with case preparer and liner. With concerns of pathological fracture appreciate recent vitamin D levels in the last 3 months. Reviewed MRI thoracic spine. Reviewed MRI lumbar spine. Acute fracture with retropulsed bone at thoracolumbar junction. Involving L1 vertebral body. Nondisplaced fracture anterior aspect of T12 vertebral body. Subtle fracture anterior inferior aspect of T10. Mild chronic T10 vertebral compression deformity. Chronic compression deformity in mid thoracic spine most apparent at T5 and T7 with mild involvement of T6. Multilevel DJD. Moderate central canal stenosis L3-4. (4) Status epilepticus: Resolved for now. Continue Depakote, Keppra. Follow-up with neurology. Reviewed respiratory viral panel, vitamin B12 levels, urine drug screen, urinalysis. Found to have low valproic acid levels. CT head negative for any acute abnormality. TSH mildly elevated. Diarrhea recently. Will continue to monitor as needed will do stool studies. Reviewed urine bacterial antigen. Appreciate neurology recommendations. Seizure precautions, fall precaution. Continue with oral diet. Stewart catheterization (5) Postictal confusion: Resolved. (6) Generalized seizure: (7) ELLIOTT (obstructive sleep apnea): Continue with home CPAP. Plan Full code Regular diet Protonix for PUD prophylaxis Lovenox for DVT prophylaxis Attestations 2 Medical Necessity Statement*: Continue admission for assessment management of hypoxia with new oxygen requirement of 3 L, dyspnea on exertion, possible decompensation of CHF. and High MDM includes amount and/or complexity of data reviewed/ordered [ previous or external records, resulted lab(s)/test(s), ordered lab(s)/test(s) and other healthcare professional discussion] and described risk of complication, morbidity or mortality of management as documented Diagnoses Hypoxia R09.02 Compression fracture of T12 vertebra, initial encounter S22.080A Encounter type: initial encounter Back pain M54.9 Status epilepticus G40.901 Postictal confusion F05 Generalized seizure R56.9 ELLIOTT (obstructive sleep apnea) G47.33
--- NOTE | 2023-12-08 14:41 | XRR_ITS ---
PROCEDURE INFORMATION: Exam: XR Chest Exam date and time: 12/08/2023 2:00 PM Age: 73 years old Clinical indication: Dyspnea and shortness of breath; Additional info: Hypoxia TECHNIQUE: Imaging protocol: Radiologic exam of the chest. Views: 1 view. COMPARISON: CR XR chest 1V portable [id number] 04/21/2022 8:21 AM FINDINGS: Lungs: Unchanged scarring and/or subsegmental atelectasis left lower lung. Otherwise, unremarkable. Pleural spaces: Unremarkable. No pleural effusion. No pneumothorax. Heart/Mediastinum: Unremarkable. No cardiomegaly. Bones/joints: Unchanged mild scoliosis. New osteoplasty cement in vertebral bodies near the thoracolumbar junction. XR/XR chest 1V portable [id number] IMPRESSION: 1. Unchanged scarring and/or subsegmental atelectasis left lower lung. 2. No other acute findings.
[2023-12-08] MEDS: folic acid 1 mg Tablet PO (17:00)
--- NOTE | 2023-12-08 20:25 | USCV_ITS ---
Rox Denson Age: 73 Gender: F : 1950 Exam Date: 12/08/2023 22:29 Ordering Phys: Aleksey Pearson MD Technologist: MARNIE [place]am [place] [facility] [place]: hypoxia BP: 117 / 71 HR: 80 Rhythm: Sinus Technical Quality: Adequate MEASUREMENTS (Male / Female) Normal Values 2D ECHO LV Diastolic Diameter PLAX 3.8 cm 4.2 - 5.9 / 3.9 - 5.3 cm IVS Diastolic Thickness 1.5 cm 0.6 - 1.0 / 0.6 - 0.9 cm IVS Systolic Thickness 1.7 cm LVPW Diastolic Thickness 1.3 cm 0.6 - 1.0 / 0.6 - 0.9 cm LVPW Systolic Thickness 1.7 cm LVOT Diameter 1.8 cm LV Ejection Fraction 2D Teich 76.6 % LV Ejection Fraction MOD 2C 72.0 % LV Ejection Fraction 2C AL 72.4 % LA Diameter 3.7 cm Aorta at Sinotubular Diameter 3.1 cm IVC Diameter 2.1 cm M-MODE LA Ao Ratio MM 1.1 AV Cusp Separation MM 1.9 cm DOPPLER AV Peak Velocity 114.0 cm/s LVOT Peak Velocity 92.0 cm/s AV Area Cont Eq vti 2.1 cm squared AV Area Cont Eq pk 2.1 cm squared MV Peak Velocity 96.0 cm/s MV Area PHT 3.0 cm squared Mitral E to A Ratio 0.9 TV Peak Velocity 283.3 cm/s TR Peak Velocity 307.0 cm/s TR Peak Gradient 37.7 mmHg TV Peak E Velocity 46.0 cm/s Right Atrial Pressure 3.0 mmHg Pulmonary Artery Systolic Pressu 40.7 mmHg PV Peak Velocity 67.0 cm/s FINDINGS Left Ventricle Left ventricle is normal size. LV systolic function is normal with EF of 60 to 65%. No regional wall motion abnormalities are seen. Right Ventricle Normal in size and function Right Atrium Normal in size Left Atrium Normal in size Mitral Valve Mild mitral annular calcification seen.Trace mitral regurgitation. Aortic Valve Grossly normal. No significant stenosis or regurgitation. Tricuspid Valve Mild tricuspid regurgitation. RVSP is 35 to 40 mmHg. This is consistent with mild pulmonary hypertension. Pulmonic Valve Not well visualized Pericardium Normal Aorta Normal in size IVC Appears to be normal CONCLUSIONS LV systolic function is normal with EF of 60 to 65%. Mild tricuspid regurgitation. Mild pulmonary hypertension Mild mitral regurgitation Compared to prior echocardiogram from 2021, no significant changes are seen Brian Hayes MD (Electronically Signed) Final Date: 09 December 2023 11:34 S
[2023-12-08] MEDS: divalproex ER 500 mg Tablet (24H) PO (20:52)
[2023-12-08] MEDS: CLONazepam 0.5 mg Tablet PO (20:53)
[2023-12-09] MEDS: TRAMadol 50 mg Tablet PO ×2 (01:34→13:21)
[2023-12-09] MEDS: cyclobenzaprine 10 mg Tablet 5 MG PO (01:35)
[2023-12-09 04:06] VITALS: BP 118/68; PULSE 73; RESP 18; TEMP 36.2; O2SAT 95
[2023-12-09 05:15] LABS: Basophils % 0.7 %; Eosinophils # 0.3 10^3/uL (0.0-0.8); Eosinophils % 7.2 %; Hematocrit 36.1 % (36-47); Lymphocytes # 1.3 10^3/uL (0.8-4.8); Lymphocytes % 32.1 %; Mean Corpuscular HGB Conc 31.9 g/dL (30-55); Mean Corpuscular Hemoglobin 28.8 pg (27-33); Mean Corpuscular Volume 90.3 fl (85-98); Mean Platelet Volume 9.5 fL (7.4-10.4); Monocytes # 0.3 10^3/uL (0.2-0.9); Monocytes % 7.2 %; Neutrophils # 2.09 10^3/uL (1.8-7.7); Neutrophils % 52.1 %; Nucleated Red Blood Cells % 0 %; Platelet Count 182 10^3/cmm (157-399); Red Cell Distribution Width 12.6 % (12.1-15.1); White Blood Count 4.02 10^3/uL (3.29-11.43)
[2023-12-09] MEDS: HYDROcodone-acetaminophen 5-325 mg Tablet PO (05:18)
[2023-12-09 05:49] LABS: Blood Urea Nitrogen 13 mg/dL (8-23); Calcium 8.9 mg/dL (8.5-10.5); Carbon Dioxide 31 mmol/L (22-29); Chloride 97 mmol/L (98-107); Glucose 91 mg/dL (65-115); Osmolality Calculated 284 mOsm/kg (285-295); Sodium 137 mmol/L (136-145)
[2023-12-09 07:52] VITALS: BP 143/75; PULSE 78; RESP 16; TEMP 36.4; O2SAT 93
[2023-12-09] MEDS: pantoprazole DR 40 mg Tablet PO (08:44)
[2023-12-09] MEDS: levETIRAcetam 500 mg Tablet PO (08:44)
[2023-12-09] MEDS: atorvastatin 40 mg Tablet PO (08:44)
[2023-12-09] MEDS: docusate sodium 100 mg Capsule PO (08:44)
[2023-12-09] MEDS: levothyroxine 88 mcg Tablet PO (08:44)
[2023-12-09] MEDS: aspirin 81 mg EC Tablet PO (08:44)
[2023-12-09] MEDS: enoxaparin 40 mg/0.4 mL Syringe SUBCUT (08:45)
[2023-12-09] MEDS: FUROsemide 10 mg/mL SDV 2mL 20 MG IVP (09:42)
[2023-12-09 10:25] VITALS: O2SAT 87; O2SAT 93
--- NOTE | 2023-12-09 10:49 | PC.SOCIAL ---
IMM Updated Updated pt & family on IMM. No questions voiced. Provided pt a copy. Initialed, dated, & timed copy in chart.
[2023-12-09 12:00] VITALS: BP 157/67; PULSE 88; RESP 18; TEMP 36.4; O2SAT 95
--- NOTE | 2023-12-09 16:35 | PM.DCS ---
Discharge Providers Date of Admission: 12/03/23 07:23 Date of Discharge: December 09, 2023 Attending Provider at Admission: Rhonda Arce MD Attending Provider at Discharge: Aleksey Pearson Primary Care Provider: FRANCESCO Molina Diagnoses at Discharge Discharge Diagnosis (1) Hypoxia: Status: Acute (2) T12 compression fracture: Status: Acute Qualifiers: Encounter type: initial encounter Qualified Code(s): S22.080A - Wedge compression fracture of T11-T12 vertebra, initial encounter for closed fracture (3) Back pain: Status: Acute (4) Status epilepticus: Status: Acute (5) Postictal confusion: Status: Acute (6) Generalized seizure: Status: Acute (7) ELLIOTT (obstructive sleep apnea): Status: Acute Permanent problem details: On CPAP: Optimal pressure 8cm, prescribed 6-12cm auto-titrating Reason for Visit Reason for Visit: seizure, AMS Hospital Course Hospital Course Pleasant 73-year-old lady was admitted for assessment management due to status epilepticus, recurrent seizure. On presentation Giurgius levels were low. She was assessed by neurology. Received IV Keppra and Depacon, resumed nightly Klonopin, subsequently transition to oral medications. Was assessed by EEG. Remains seizure-free. Asked to follow up with neurology. Discharge was considered at that point but she was weak, was assessed by physical therapy during which complained of back pain and weakness in her legs. Lumbar scan consistent with lumbar fracture of L1, T12. Additional subtle fracture involving anterior aspect of T10. Chronic compression deformities at T5 and 7, mild involvement of T6. With severe back pain limiting ambulation. Surgery recommended kyphoplasty T11 and 12 which she underwent on 12/06 with good improvement in symptoms. She does report history of osteoporosis, previously on Prolia but states that she did not respond to this medication. Subsequently had been on Fosamax for years but states right now is not on any medication other than calcium and magnesium supplement. She is not sure whether she is on bisphosphonate holiday. He is going to discuss further with her primary provider regarding bisphosphonate holiday versus restarting treatment if it was stopped as well as referral to endocrinology given prior treatment failure and currently noted multiple compression fractures. Periprocedurally she was also found to require oxygen supplementation, not previously on oxygen. Required up to 8 L during the procedure, 3 and half liters afterwards. Did receive periprocedural fluids, as well as with atelectasis and left lower lobe versus possible scarring noted on chest x-ray, was given a dose of Lasix, started on incentive spirometer. Oxygenation improved, did wean down on oxygen not requiring it at rest with 2 L on exertion still needed. Echocardiogram was obtained she is noted to have possibly mild diastolic congestive heart failure exacerbated by IV fluid, ejection fraction is normal, she does have mild cuspid regurgitation, mild pulmonary hypertension, as well as mild mitral regurgitation. Lasix dose was repeated. He is doing well through the afternoon, ambulating in the room is discharging for outpatient follow-up and reassessment and with home health. Please reassess oxygenation, in case of any protracted need for oxygen supplementation consider referral for pulmonary function testing. Reassess left lower lung axis versus scarring. Physical Exam Narrative: Accompanied by family. Const: COMMON NORMALS: patient oriented x3 and alert GENERAL APPEARANCE: cooperative ORIENTATION/CONSCIOUSNESS: Yes awake HENMT: COMMON NORMALS: oropharynx normal Neck/C-Spine: COMMON NORMALS: no JVD Resp: COMMON NORMALS: normal respiratory effort and clear to auscultation bilaterally AUSCULTATION: clear to auscultation bilaterally and crackles Laterality: left (lower) Cardio: COMMON NORMALS: no JVD, regular rhythm, S1 normal heart sound present, S2 normal heart sound present and No murmurs present (Cardio) RHYTHM: regular rhythm HEART SOUNDS: S1 normal heart sound present and S2 normal heart sound present GI: COMMON NORMALS: Normal to inspection, nondistended, normoactive bowel sounds present, Soft to palpation and non-tender PALPATION: Yes Soft to palpation Extremity: COMMON NORMALS: no joint enlargement and no pedal edema Neuro: COMMON NORMALS: patient oriented x3 and moves all extremities SENSORIUM/ORIENTATION: Yes alert Skin: COMMON NORMALS: no rashes or lesions noted GENERAL SKIN EXAM: no rashes or lesions noted Urinary Catheter Management: Stewart: Cath Placed During This Visit: yes, but has since been removed by the nurse Reason for Continuing Indwelling Catheter: Decision to DC Catheter Urinary Catheter Date of Insertion: 12/03/23 Urinary Catheter Time of Insertion: 16:35 Date Urinary Catheter Removed: 12/08/23 Time Urinary Catheter Discontinued: 07:15 Discharge Data Studies Completed and Pending Completed Studies During Hospitalization Category Date Time Status CT head wo con* [id number] Stat Cat Scan 12/03/23 03:[address] lumbar spine wo con* [id number] Routine Cat Scan 12/04/23 12:20 Completed CXRP [XR chest 1V portable [id number]] Routine Exams 12/08/23 14:41 Completed MR lumbar spine wo con* [id number] Routine MRI 12/05/23 11:00 Completed MR thoracic spin wo con* [id number] Routine MRI 12/05/23 11:00 Completed CV. echo complete* [id number] Routine Ultrasound 12/08/23 20:25 Completed Pending at discharge Category Date Time Status EEG electroencephalogram Routine Exams 12/03/23 11:55 Ordered XR thoracic spine 2V [id number] Routine Exams 12/07/23 00:00 Taken Pathology: Surgical [PTH] Routine Pth 12/07/23 13:35 Received Radiology Impressions Head CT 12/03/23 03:19 IMPRESSION: 1. No acute intracranial findings. 2. Additional findings as above. Lumbar Spine CT 12/04/23 12:20 IMPRESSION: 1. Moderate T12 compression fracture involving anterior and middle columns with 30-40% narrowing of the AP diameter of the neural canal due to retropulsed bone. Overall appearance raises question of pathologic fracture and MRI may be helpful to exclude underlying vertebral body lesion. 2. Subtle endplate fractures of L1. 3. Degenerative changes with stenosis at lower lumbar levels. Lumbar Spine MRI 12/05/23 11:00 IMPRESSION: 1. Counting from the C1 level, the acute compression fracture is at the L1 level. There apparently is a lumbarized S1 segment. 2. The severity of the L1 vertebral compression and bone retropulsion do not appear significantly changed from CT exam of the previous day. 3. Very subtle nondisplaced fracture anteroinferior aspect of T12. 4. Chronic multilevel degenerative disc disease and facet DJD. These findings produce moderate central canal stenosis at L3-L4. Thoracic Spine MRI 12/05/23 11:00 IMPRESSION: 1. Counting from C1, the acute fracture with retropulsed bone at the thoracolumbar junction involves the L1 vertebral body . Additional details are provided in the lumbar MRI report. 2. There is a nondisplaced fracture isolated to the anteroinferior aspect of the T12 vertebral body. 3. A very subtle fracture involving the anteroinferior aspect of T10 vertebral body may be relatively recent, and is likely superimposed on a mild chronic T10 vertebral compression deformity. 4. Chronic compression deformities in the midthoracic spine, most apparent at T5 and T7 with milder involvement at T6. Chest X-Ray 12/08/23 14:41 IMPRESSION: 1. Unchanged scarring and/or subsegmental atelectasis left lower lung. 2. No other acute findings. Laboratory Results WBC 4.02 10^3/uL (3.29-11.43) 12/09/23 04:42 RBC 4.00 10^6/uL (3.85-5.65) 12/09/23 04:42 Hgb 11.50 g/dL (11.27-16.99) 12/09/23 04:42 Hct 36.1 % (36-47) 12/09/23 04:42 MCV 90.3 fl (85-98) 12/09/23 04:42 MCH 28.8 pg (27-33) 12/09/23 04:42 MCHC 31.9 g/dL (30-55) 12/09/23 04:42 RDW 12.6 % (12.1-15.1) 12/09/23 04:42 Plt Count 182 10^3/cmm (157-399) 12/09/23 04:42 MPV 9.5 fL (7.4-10.4) 12/09/23 04:42 Neut % (Auto) 52.1 % 12/09/23 04:42 Lymph % (Auto) 32.1 % 12/09/23 04:42 Hardin % (Auto) 7.2 % 12/09/23 04:42 Eos % (Auto) 7.2 % 12/09/23 04:42 Baso % (Auto) 0.7 % 12/09/23 04:42 Neut # (Auto) 2.09 10^3/uL (1.8-7.7) 12/09/23 04:42 Lymph # (Auto) 1.3 10^3/uL (0.8-4.8) 12/09/23 04:42 Hardin # (Auto) 0.3 10^3/uL (0.2-0.9) 12/09/23 04:42 Eos # (Auto) 0.3 10^3/uL (0.0-0.8) 12/09/23 04:42 Baso # (Auto) 0.0 10^3/uL (0.0-0.1) 12/09/23 04:42 Nucleated RBC % (auto) 0 % 12/09/23 04:42 Nucleated RBCs # 0.0 /100WBC 12/09/23 04:42 Sodium 137 mmol/L (136-145) 12/09/23 04:42 Potassium 4.0 mmol/L (3.5-5.1) 12/09/23 04:42 Chloride 97 mmol/L (98-107) L 12/09/23 04:42 Carbon Dioxide 31 mmol/L (22-29) H 12/09/23 04:42 Anion Gap 13.0 (5-19) 12/09/23 04:42 BUN 13 mg/dL (8-23) 12/09/23 04:42 Creatinine 0.6 mg/dL (0.5-0.9) 12/09/23 04:42 GFR Calculation Not Reportable 12/09/23 04:42 Glucose 91 mg/dL (65-115) 12/09/23 04:42 Estimat Average Glucose 100 12/04/23 04:26 Hemoglobin A1c 5.1 % (4.0-6.0) 12/04/23 04:26 Calculated Osmolality 284 mOsm/kg (285-295) L 12/09/23 04:42 Calcium 8.9 mg/dL (8.5-10.5) 12/09/23 04:42 Magnesium 1.9 mg/dL (1.7-2.3) 12/06/23 05:23 Iron 58 ug/dL (37-145) 12/03/23 02:33 TIBC 308 mcg/dl 12/03/23 02:33 % Saturation 18.8 % (20-50) L 12/03/23 02:33 Unsat Iron Binding 250 ug/dL (112-347) 12/03/23 02:33 Total Bilirubin 0.5 mg/dL (0.15-1.2) 12/07/23 02:19 AST 14 U/L (0-32) 12/07/23 02:19 ALT 11 U/L (0-33) 12/07/23 02:19 Alkaline Phosphatase 61 U/L (35-105) 12/07/23 02:19 Creatine Kinase 445 U/L (26-192) H* 12/03/23 02:33 Total Protein 6.2 g/dL (6.6-8.7) L 12/07/23 02:19 Albumin 3.5 g/dL (3.5-5.2) 12/07/23 02:19 Globulin 2.7 g/dL (1.3-4.6) 12/07/23 02:19 Triglycerides 133 mg/dL (0-150) 12/04/23 04:26 Cholesterol 160 mg/dL (0-200) 12/04/23 04:26 LDL Cholesterol, Calc 86 mg/dL (50-129) 12/04/23 04:26 Total VLDL Cholesterol 27 mg/dL (0-30) 12/04/23 04:26 HDL Cholesterol 47 mg/dL (60-100) L 12/04/23 04:26 Cholesterol/HDL Ratio 3.40 mg/dL (0.0-4.40) 12/04/23 04:26 Vitamin B12 1653 pg/mL (232-1245) H 12/03/23 02:33 Folate > 20.0 ng/mL (4.8-37.3) 12/04/23 04:26 TSH 4.44 uIU/mL (0.27-4.20) H 12/03/23 02:33 TSH Cancelled 12/03/23 02:33 Free T4 1.02 ng/dL (0.82-1.77) 12/03/23 02:33 Free T3 2.2 PG/ML (2.0-4.4) 12/03/23 02:33 Prolactin 23.27 ng/mL (4.8-23.3) 12/03/23 02:33 Urine Color Yellow (Yellow) 12/03/23 16:30 Urine Appearance Clear (CLEAR) 12/03/23 16:30 Urine pH 7 (5-7) 12/03/23 16:30 Ur Specific Neola 1.015 (1.005-1.030) 12/03/23 16:30 Urine Protein Neg (Negative) 12/03/23 16:30 Urine Glucose (UA) Norm (Normal) 12/03/23 16:30 Urine Ketones 1+ (Negative) H 12/03/23 16:30 Urine Blood Neg (Negative) 12/03/23 16:30 Urine Nitrate Negative (Negative) 12/03/23 16:30 Urine Bilirubin Neg (Negative) 12/03/23 16:30 Urine Urobilinogen Norm mg/dL (Negative) 12/03/23 16:30 Ur Leukocyte Esterase Negative (Negative) 12/03/23 16:30 Urine Opiates Screen Negative ng/mL (Negative) 12/03/23 16:30 Ur Barbiturates Screen Negative ng/mL (Negative) 12/03/23 16:30 Valproic Acid 62.8 ug/mL (50-100) 12/04/23 11:59 Ur Phencyclidine Scrn Negative ng/mL (Negative) 12/03/23 16:30 Ur Amphetamines Screen Negative ng/mL (Negative) 12/03/23 16:30 U Benzodiazepines Scrn Negative ng/mL (Negative) 12/03/23 16:30 Urine Cocaine Screen Negative ng/mL (Negative) 12/03/23 16:30 U Marijuana (THC) Screen Negative ng/mL (Negative) 12/03/23 16:30 Adenovirus (PCR) Not detected (NOT DETECT) 12/03/23 14:55 C. pneumoniae DNA (PCR) Not detected (NOT DETECT) 12/03/23 14:55 Coronavirus 229E (PCR) Not detected (NOT DETECT) 12/03/23 14:55 Human Metapneumovir PCR Not detected (NOT DETECT) 12/03/23 14:55 Influenza A (H1) PCR Not detected (NOT DETECT) 12/03/23 14:55 Influ A (H1/09) PCR Not detected (NOT DETECT) 12/03/23 14:55 Influenza A (H3) PCR Not detected (NOT DETECT) 12/03/23 14:55 Influenza Type A (PCR) Not detected (NOT DETECT) 12/03/23 14:55 Influenza Type B (PCR) Not detected (NOT DETECT) 12/03/23 14:55 M. pneumoniae (PCR) Not detected (NOT DETECT) 12/03/23 14:55 Parainfluenza 1 (PCR) Not detected (NOT DETECT) 12/03/23 14:55 Parainfluenza 2 (PCR) Not detected (NOT DETECT) 12/03/23 14:55 Parainfluenza 3 (PCR) Not detected (NOT DETECT) 12/03/23 14:55 Parainfluenza 4 (PCR) Not detected (NOT DETECT) 12/03/23 14:55 RSV Type A (PCR) Not detected (NOT DETECT) 12/03/23 14:55 RSV Type B (PCR) Not detected (NOT DETECT) 12/03/23 14:55 Entero/Rhino (PCR) Not detected (NOT DETECT) 12/03/23 14:55 SARS-CoV-2 (PCR) Not detected (NOT DETECT) 12/03/23 14:55 Vitals Last Vital Signs Temp 97.6 F 12/09/23 12:00 Pulse 88 12/09/23 12:00 Resp 18 12/09/23 12:00 BP 157/67 12/09/23 12:00 Pulse Ox 95 12/09/23 12:00 O2 Del Method Nasal Cannula 12/09/23 12:00 O2 Flow Rate 2 12/09/23 10:25 Discharge Plan Discharge Patient Disposition: Home Health Service Condition: Stable Prescriptions: New levothyroxine 88 mcg Tablet 88 mcg PO DAILY Qty: 30 0RF tramadol 50 mg tablet 50 mg PO Q8H PRN (Reason: pain) Qty: 14 0RF Continued alendronate [Fosamax] 70 mg tablet 70 mg PO DAILY Rx Instructions: ON THURSDAY rosuvastatin 10 mg tablet 10 mg PO QPM venlafaxine 37.5 mg capsule,extended release 24hr 37.5 mg PO DAILY Zyrtec 10 mg Tablet 10 mg PO DAILY berberine-herbal comb no.18 Capsule See Rx Instructions .ROUTE .COMPLEX Rx Instructions: Take 1 cap by mouth 30 minutes to 1 hour before each meal [id number]-Ca carb-vit K 18 mg iron-400 mcg-500 mg Tablet 1 tab PO TID Probiotic 3 billion cell Capsule 3,000 mmu cells PO DAILY Rx Instructions: administer with a meal turmeric 400 mg Capsule 400 mg PO QAM [id number]-rgwevv-[id number]-Ms-Cp-patel 250 mg-400 unit -40 mg-5 mg Tablet 1 tab PO TID clonazepam [Klonopin] 0.5 mg tablet 0.5 mg PO BEDTIME Rx Instructions: Take 1 at bedtime for sleep and seizure prevention. divalproex 500 mg tablet,delayed release (DR/EC) 500 mg PO QPM folic acid 1 mg tablet 1 mg PO QPM Changed levetiracetam 500 mg tablet extended release 24 hr 1,000 mg PO BEDTIME Qty: 60 5RF Rx Instructions: 2 at bedtime Discontinued clonazepam 0.5 mg tablet 0.5 mg PO DAILY Qty: 30 5RF Rx Instructions: 1 at bedtime divalproex [Depakote ER] 500 mg tablet extended release 24 hr 500 mg PO DAILY Qty: 30 5RF Rx Instructions: take 1 at bedtime levothyroxine 50 mcg tablet 50 mcg PO QAM levetiracetam 750 mg tablet 750 mg PO BEDTIME Discharge Orders: Discharge Order (Routine); Ordered 12/09/23 Ordered By: Aleksey Pearson Other Ambulatory Orders: DME: Oxygen (Order) Location: None Selected Ordered By: Aleksey Pearson Referrals: [facility] [Other] [facility]Outside] Ramesh Negron DO [Physician] - (We have notified your physician's clinic of the need for a follow-up appointment to be scheduled. If you have not heard from them within the next 2 business days, please call them directly. ) Cesar Crowley MD [Physician] - 7-10 days (We have notified your physician's clinic of the need for a follow-up appointment to be scheduled. If you have not heard from them within the next 2 business days, please call them directly. ) Rachel Constantino FNP [Primary Care Provider] - 12/16/23 11:20 am Discharge Diet: Regular Discharge Activity: Resume usual activity, Increase activity as tolerated, Oxygen as instructed and Cpap/Bipap as instructed Patient Instructions: Levothyroxine (By mouth), Hypothyroidism (GEN), Epilepsy (GEN), Kyphoplasty (DC), Opioid Safety, Pain Management, Seizures Activity Restrictions/Additional Instructions: Follow-up with your primary doctor for reassessment of mild diastolic heart failure, pulmonary hypertension, mild mitral valve regurgitation. Continue oxygen, wean off as tolerating maintaining saturation around 92%. Thank you for [facility] for your care! The following is a list of instructions, from your provider, to follow upon your discharge to ensure you have the optimal recovery from your recent injury orsurgery. Follow-up care is a hanna part of your treatment and safety. Be sure to make and go to all appointments, and call your doctor if you are having problems. If you do not already have a follow-up appointment made, call Dr. Negron office in the next 1-3 days to make follow up appointment for 2 weeks at [phone]. It is also a good idea to know your test results and keep a list of the medicines you take. Medications will be prescribed for you at your provider's discretion. These medications are to be used as instructed; if they are taken more often that prescribed they will not be refilled early and in most cases will not be refilled at all. > When a refill is needed,you should contact olivia mills 2-3 business days before your prescription runs out. Medications will NOT be refilled by supervisor [employer] providers after hours! > Many pain medications contain Tylenol (Acetaminophen). Do not consume more than 4,000 mg of Tylenol per day in total with any combination ofmedications. > Pain medications can cause constipation. Please use an over the counter stool softener as directed, while taking pain medications. Consulty our local pharmacist with questions or recommendations on stool softeners. If constipation persists, contact our office or your primary care provider. > While under our care,you are not to receive pain medications or other controlled substances from any other provider unless our office is notified and approves. Any attempts to do so will result in refusal to prescribe any further pain medications and possible dismissal from our practice. ? Your wound and/or dressing should remain clean and dry for 2 days after surgery. On postoperative day 2 (48 hours after your surgery) the dressing (if present) should be removed and it is okay to shower and get the incision wet. Pad dry afterwards. No further dressing should be required from that point on. Do not put any creams or ointments on theincision > It is normal for there to be a small amount of discharge (bloody or blood tinged) present from a surgical wound for the first 1-3days. > The wound should be examined twice a day for signs of infection. Mild redness or bruising is to be expected but indications that an infection maybe starting would include; An increase in redness, swelling, or discharge, a foul odor present around the incision, and/or a fever greater than 101 ?F ? Showering is permitted, however we ask that you do not take a bath, sit in a whirlpool / Jacuzzi, or go swimming for 1 month. For only the first 2 days after surgery, lt wilt be necessary for you to cover your wound/dressing with plastic and tape to keep it dry. ? Walking is essential for the healing process after surgery. We would like you to slowly advance your walking. This should be done on relatively flat clear ground (inside or out) or can be done on a treadmill. Remember this goal does not have to happen all at once, slowly increase your distance and duration. This can be broken into more more than one walk per day as tolerated. Patients who walk as directed after surgery rarely require Physical Therapy. In the unlikely event this issue arises your provider will direct hospital staff to make the appropriate arrangements. ? No lifting over 5 pounds {a gallon of milk) or bending/twisting until further notice. Each of these activities places an unnecessary amount of stress onto the body and can impede the delicate healing process. > Instead of bending at the waist, keep your back straight and bend at the knees. > Instead of twisting your torso, keep your back straight and turn your entire body with your feet. ? You may sleep in any position which makes you comfortable. Many patients find comfort sleeping in a reclining chair. It is not abnormal to have difficulty sleeping for the first several weeks following your surgery. We recommend trying Benadry! or Tylenol PM as directed to help with your sleeping difficulties. Both medications are over the counter and available withoutprescription. ? NO SMOKING!!! Smoking dramatically increases the probability of developing postoperative wound infections. ? Common complaints after lumbar and/or thoracic spine surgery include, but are not limited to: numbness and/or tingling in the legs, pain around the incision and surrounding tissues, muscle spasms, or stiffness of the middle to low back. Contact our office if these symptoms persist or if an acute change occurs. ? No driving for the first 3-5days, and not while taking narcotics until seen at your follow-up appointment and cleared. There are no restrictions for riding on short trips, however if you take a longer trip, arrangements should be made to make regular stops to get out of the vehicle and stretch . ? Swelling is an unfortunate event that will take place with any surgery and is the primary source of your postoperative discomfort. While walking and regular approved activities helps control inflammation, there are additional steps you can take to minimizeswelling. > Place ice over the surgical site and surrounding tissue for twenty minutes, followed by applying a low/medium heat (heating pad) for an additional twenty minutes every 1-2 hours as needed for painrelief. > You may use of over the counter anti-inflammatory medications (Ibuprofen, Motrin, Aleve, Advil, etc) as directed on the package label. These types of medicines wm significantly reduce the amount of discomfort you experience after surgery from swelling. It should be noted that if you have and allergy to any of these medications, or a history of ulcers or kidney disease you should consult you primary care provider prior to starting these medications. Discharge Attestations Time Spent in Discharge Care*: greater than 30 min Quality Metrics Clinical Quality Measures [ No reported AMI, CVA or VTE this stay] Coding Level of Care Code 48882 Total time (in minutes) for Discharge: 45 Diagnoses Hypoxia R09.02 Compression fracture of T12 vertebra, initial encounter S22.080A Encounter type: initial encounter Back pain M54.9 Status epilepticus G40.901 Postictal confusion F05 Generalized seizure R56.9 ELLIOTT (obstructive sleep apnea) G47.33
== END 2023-12-09 16:50 | disposition home health service (06) | DRG 982 ==
LOC: ER 07:22 → MEDSURG 07:53 → ICU 16:12 → MEDSURG 12-04 18:06
PROVIDERS: Emergency Medicine; Orthopaedic Surgery; Psychiatry & Neurology Neurology; Student in an Organized Health Care Education/Training Program; Admitting Provider Student in an Organized Health Care Education/Training Program; Emergency Provider Family Medicine; PCP Nurse Practitioner Family; Visit Provider Internal Medicine
PROC: 0PS43ZZ Reposition Thoracic Vertebra, Percutaneous Approach (ICD-10-PCS; principal; 2023-12-07 11:25)
DX: G40.411 Other generalized epilepsy and epileptic syndromes, intractable, with status epilepticus (principal); F05 Delirium due to known physiological condition; M48.54XA Collapsed vertebra, not elsewhere classified, thoracic region, initial encounter for fracture; E03.9 Hypothyroidism, unspecified; G47.33 Obstructive sleep apnea (adult) (pediatric); N39.46 Mixed incontinence; F32.A Depression, unspecified; E78.5 Hyperlipidemia, unspecified; M81.0 Age-related osteoporosis without current pathological fracture; Q82.8 Other specified congenital malformations of skin; H35.30 Unspecified macular degeneration; G25.1 Drug-induced tremor; T42.6X5A Adverse effect of other antiepileptic and sedative-hypnotic drugs, initial encounter; R19.7 Diarrhea, unspecified; R09.02 Hypoxemia; M48.061 Spinal stenosis, lumbar region without neurogenic claudication; Z99.89 Dependence on other enabling machines and devices; Z86.16 Personal history of COVID-19
CPT/HCPCS: 36415; 51702; 70450; 71045; 72070; 72131; 72146; 72148; 76000; 80048; 80053; 80061; 80164; 80306; 81003; 82550; 82607; 82746; 83036; 83540; 83550; 83735; 84146; 84439; 84443; 84481; 85025; 86403; 87486; 87581; 87633; 88307; 88311; 93005; 93306; 94760; 95812; 95813; 95816; 96372; 96376; 97116; 97162; 97530; 99285; C9113; J0690; J1100; J1650; J1940; J1953; J2060; J2270; J2405; J2704; J2710; J3010; J3490; J7030; J7120; Q9967

== ENCOUNTER → 2023-12-14 07:57 | Outpatient (BNVA) | payer MEDICARE, OTHER, SELFPAY | PROVIDERS: PCP Nurse Practitioner Family; Visit Provider Psychiatry & Neurology Neurology | DX: G40.419 Other generalized epilepsy and epileptic syndromes, intractable, without status epilepticus (principal); R94.01 Abnormal electroencephalogram [EEG] | CPT/HCPCS: 36415; 99212 ==

== ENCOUNTER 2023-12-15 11:32 | Outpatient (CLI) | payer MEDICARE, OTHER, SELFPAY ==
[2023-12-15 13:49] LABS: Valproic Acid Level 38.3 ug/mL (50-100)
[2023-12-16 09:44] LABS: Levetiracetam Immunoassy 17.7 mcg/mL (6.0-46.0)
== END 2023-12-15 11:33 | disposition home or self-care (01) ==
LOC: LAB 11:33
PROVIDERS: PCP Nurse Practitioner Family; Visit Provider Psychiatry & Neurology Neurology
DX: G40.319 Generalized idiopathic epilepsy and epileptic syndromes, intractable, without status epilepticus (principal); R94.01 Abnormal electroencephalogram [EEG]; G40.A19 Absence epileptic syndrome, intractable, without status epilepticus
CPT/HCPCS: 36415; 80164; 80177

== ENCOUNTER 2023-12-22 13:55 | Outpatient (CLI) | payer MEDICARE, OTHER, SELFPAY ==
[2023-12-22 15:32] LABS: Valproic Acid Level 49.1 ug/mL (50-100)
== END 2023-12-22 13:56 | disposition home or self-care (01) ==
LOC: LAB 13:57
PROVIDERS: PCP Nurse Practitioner Family; Visit Provider Psychiatry & Neurology Neurology
DX: G40.319 Generalized idiopathic epilepsy and epileptic syndromes, intractable, without status epilepticus (principal)
CPT/HCPCS: 36415; 80164; 99214

== ENCOUNTER → 2024-01-11 10:11 | Outpatient (BNVA) | payer MEDICARE, OTHER, SELFPAY | PROVIDERS: PCP Nurse Practitioner Family; Referring Provider Orthopaedic Surgery; Visit Provider Anesthesiology Pain Medicine | DX: M47.816 Spondylosis without myelopathy or radiculopathy, lumbar region (principal); S22.080A Wedge compression fracture of T11-T12 vertebra, initial encounter for closed fracture; X58.XXXA Exposure to other specified factors, initial encounter | CPT/HCPCS: 99204 ==

== ENCOUNTER → 2024-01-12 08:42 | Outpatient (BNVA) | payer MEDICARE, OTHER, SELFPAY | PROVIDERS: PCP Nurse Practitioner Family; Visit Provider Psychiatry & Neurology Neurology | DX: G40.319 Generalized idiopathic epilepsy and epileptic syndromes, intractable, without status epilepticus (principal); R94.01 Abnormal electroencephalogram [EEG] | CPT/HCPCS: 36415; 80076; 80164; 80177; 85025; 95816; 95819; 99212 ==

== ENCOUNTER → 2024-02-10 08:59 | Outpatient (BNVA) | payer MEDICARE, OTHER, SELFPAY | PROVIDERS: PCP Nurse Practitioner Family; Visit Provider Anesthesiology Pain Medicine | DX: M47.816 Spondylosis without myelopathy or radiculopathy, lumbar region; S22.080A Wedge compression fracture of T11-T12 vertebra, initial encounter for closed fracture; X58.XXXA Exposure to other specified factors, initial encounter | CPT/HCPCS: 99205 ==

== ENCOUNTER 2024-02-17 08:16 | Outpatient (RCR) | payer MEDICARE, OTHER, SELFPAY | END 2024-02-26 23:59 | disposition home or self-care (01) | LOC: SPT 08:16 | PROVIDERS: PCP Nurse Practitioner Family; Visit Provider Nurse Practitioner Family | DX: M54.50 Low back pain, unspecified (principal) | CPT/HCPCS: 97110; 97161; 97530 ==

== ENCOUNTER → 2024-02-18 14:47 | Outpatient (BNVA) | payer MEDICARE, OTHER, SELFPAY | PROVIDERS: PCP Nurse Practitioner Family; Visit Provider Anesthesiology Pain Medicine | DX: M54.16 Radiculopathy, lumbar region (principal) | CPT/HCPCS: 64483; 64484; J1100; J3490 ==

== ENCOUNTER 2024-02-27 06:00 | Outpatient (RCR) | payer MEDICARE, OTHER, SELFPAY | END 2024-03-21 23:59 | disposition home or self-care (01) | LOC: SPT 06:00 | PROVIDERS: PCP Nurse Practitioner Family; Visit Provider Nurse Practitioner Family | DX: M54.50 Low back pain, unspecified (principal) | CPT/HCPCS: 97110 ==

== ENCOUNTER → 2024-03-03 13:34 | Outpatient (BNVA) | payer MEDICARE, OTHER, SELFPAY | PROVIDERS: PCP Nurse Practitioner Family; Visit Provider Orthopaedic Surgery | DX: M54.9 Dorsalgia, unspecified (principal); X58.XXXA Exposure to other specified factors, initial encounter; S22.080A Wedge compression fracture of T11-T12 vertebra, initial encounter for closed fracture | CPT/HCPCS: 72100; 99214 ==

== ENCOUNTER → 2024-03-08 10:35 | Outpatient (BNVA) | payer MEDICARE, OTHER, SELFPAY | PROVIDERS: PCP Nurse Practitioner Family; Visit Provider Anesthesiology Pain Medicine | DX: M47.816 Spondylosis without myelopathy or radiculopathy, lumbar region; S22.080A Wedge compression fracture of T11-T12 vertebra, initial encounter for closed fracture; X58.XXXA Exposure to other specified factors, initial encounter | CPT/HCPCS: 99214 ==

== ENCOUNTER → 2024-05-11 13:25 | Outpatient (BNVA) | payer MEDICARE, OTHER, SELFPAY | PROVIDERS: PCP Nurse Practitioner Family; Visit Provider Psychiatry & Neurology Neurology | DX: G40.319 Generalized idiopathic epilepsy and epileptic syndromes, intractable, without status epilepticus (principal); R94.01 Abnormal electroencephalogram [EEG] | CPT/HCPCS: 99212 ==

== ENCOUNTER 2024-05-12 08:56 | Outpatient (CLI) | payer MEDICARE, OTHER, SELFPAY ==
[2024-05-12 10:22] LABS: Valproic Acid Level 95.1 ug/mL (50-100)
[2024-05-13 10:19] LABS: Levetiracetam Immunoassy 19.6 mcg/mL (6.0-46.0)
== END 2024-05-12 08:57 | disposition home or self-care (01) ==
LOC: LAB 08:58
PROVIDERS: PCP Nurse Practitioner Family; Visit Provider Psychiatry & Neurology Neurology
DX: G40.319 Generalized idiopathic epilepsy and epileptic syndromes, intractable, without status epilepticus (principal); R94.01 Abnormal electroencephalogram [EEG]
CPT/HCPCS: 36415; 80164; 80177

== ENCOUNTER → 2024-06-16 13:14 | Outpatient (BNVA) | payer MEDICARE, OTHER, SELFPAY | PROVIDERS: PCP Nurse Practitioner Family; Visit Provider Psychiatry & Neurology Neurology | DX: R94.01 Abnormal electroencephalogram [EEG] (principal); G40.319 Generalized idiopathic epilepsy and epileptic syndromes, intractable, without status epilepticus; G40.901 Epilepsy, unspecified, not intractable, with status epilepticus | CPT/HCPCS: 36415; 80164; 80177; 95819 ==

== ENCOUNTER → 2024-07-25 08:15 | Outpatient (BNVA) | payer MEDICARE, OTHER, SELFPAY | PROVIDERS: PCP Nurse Practitioner Family; Visit Provider Nurse Practitioner Family | DX: L57.0 Actinic keratosis (principal); L82.1 Other seborrheic keratosis; D22.5 Melanocytic nevi of trunk; L81.4 Other melanin hyperpigmentation; L57.8 Other skin changes due to chronic exposure to nonionizing radiation | CPT/HCPCS: 17000; 99213 ==

== ENCOUNTER → 2024-08-03 12:51 | Outpatient (BNVA) | payer MEDICARE, OTHER, SELFPAY | PROVIDERS: PCP Nurse Practitioner Family; Visit Provider Psychiatry & Neurology Neurology | DX: G40.319 Generalized idiopathic epilepsy and epileptic syndromes, intractable, without status epilepticus (principal); G40.A19 Absence epileptic syndrome, intractable, without status epilepticus; R94.01 Abnormal electroencephalogram [EEG]; E03.9 Hypothyroidism, unspecified; G47.33 Obstructive sleep apnea (adult) (pediatric) | CPT/HCPCS: 36415; 80164; 82140; 99212 ==

== ENCOUNTER 2024-12-22 13:58 | Outpatient (RCR) | payer MEDICARE, OTHER, SELFPAY | END 2024-12-26 23:59 | disposition home or self-care (01) | LOC: SPT 13:58 | PROVIDERS: Visit Provider Nurse Practitioner Family | DX: M54.50 Low back pain, unspecified (principal) | CPT/HCPCS: 97161 ==

== ENCOUNTER → 2024-12-26 13:54 | Outpatient (BNVA) | payer MEDICARE, OTHER, SELFPAY | PROVIDERS: PCP Nurse Practitioner Family; Visit Provider Psychiatry & Neurology Neurology | DX: G40.319 Generalized idiopathic epilepsy and epileptic syndromes, intractable, without status epilepticus (principal) | CPT/HCPCS: 99212 ==

== ENCOUNTER 2024-12-27 05:35 | Outpatient (RCR) | payer MEDICARE, OTHER, SELFPAY | END 2025-01-25 23:59 | disposition home or self-care (01) | LOC: SPT 05:35 | PROVIDERS: PCP Nurse Practitioner Family; Visit Provider Nurse Practitioner Family | DX: M54.50 Low back pain, unspecified (principal) | CPT/HCPCS: 97110 ==

== ENCOUNTER 2025-01-26 06:00 | Outpatient (RCR) | payer MEDICARE, OTHER, SELFPAY | END 2025-02-15 14:34 | disposition home or self-care (01) | LOC: SPT 06:00 | PROVIDERS: PCP Nurse Practitioner Family; Visit Provider Nurse Practitioner Family | DX: M54.50 Low back pain, unspecified (principal) | CPT/HCPCS: 97110 ==

== ENCOUNTER → 2025-02-07 08:41 | Outpatient (BNVA) | payer MEDICARE, OTHER, SELFPAY | PROVIDERS: PCP Nurse Practitioner Family; Visit Provider Orthopaedic Surgery | DX: M54.6 Pain in thoracic spine (principal); G89.29 Other chronic pain | CPT/HCPCS: 72072; 99213 ==

== ENCOUNTER 2025-02-13 07:48 | Outpatient (CLI) | payer MEDICARE, OTHER, SELFPAY ==
--- NOTE | 2025-02-13 08:00 | CT_ITS ---
WS: [id number] CT THORACIC SPINE TECHNIQUE: Noncontrast CT of the thoracic spine with coronal and sagittal reformatted images. CLINICAL INFORMATION: thoracic pain COMPARISON: MRI 12/05/2023 DLP: 377.[address] scans at [facility] use at least one of these dose optimization techniques: automated exposure control; mA and/or kV adjustment per patient size (includes targeted exams where dose is matched to clinical indication); or iterative reconstruction. FINDINGS: Osteopenia. Thoracic kyphosis and thoracic curve. Prior kyphoplasty changes with chronic compression at T12 and L1. Chronic compression deformities in the midthoracic spine at T5 T6 and T7.. These are similar to previous. Retropulsion at L1 appears progressed compared to 12/05/2023. Moderate central canal stenosis at this level. Biconcave compression at L1 appears slightly progressed. Vertebroplasty changes at T12 new since the prior MRI. Normal adrenal glands. CT/CT thoracic spin wo con* [id number] IMPRESSION: 1. Kyphoplasty changes with chronic compression of T12 and L1. L1 compression appears progressed compared to the prior MRI with increased retropulsion and mo derate central canal stenosis. Visualized fracture clefts involving L1. 2. Stable appearing chronic compression at T5, T6, T7, and T10. 3. Osteopenia.
== END 2025-02-13 07:49 | disposition home or self-care (01) ==
LOC: RAD 07:49
PROVIDERS: PCP Nurse Practitioner Family; Visit Provider Orthopaedic Surgery
DX: M43.8X4 Other specified deforming dorsopathies, thoracic region (principal); Z98.890 Other specified postprocedural states; M85.88 Other specified disorders of bone density and structure, other site; M40.294 Other kyphosis, thoracic region; M48.55XD Collapsed vertebra, not elsewhere classified, thoracolumbar region, subsequent encounter for fracture with routine healing; M48.54XD Collapsed vertebra, not elsewhere classified, thoracic region, subsequent encounter for fracture with routine healing; M48.56XD Collapsed vertebra, not elsewhere classified, lumbar region, subsequent encounter for fracture with routine healing; M48.061 Spinal stenosis, lumbar region without neurogenic claudication; R93.7 Abnormal findings on diagnostic imaging of other parts of musculoskeletal system
CPT/HCPCS: 72128

== ENCOUNTER → 2025-02-16 15:26 | Outpatient (BNVA) | payer MEDICARE, OTHER, SELFPAY | PROVIDERS: PCP Nurse Practitioner Family; Visit Provider Orthopaedic Surgery | DX: Z09 Encounter for follow-up examination after completed treatment for conditions other than malignant neoplasm (principal); M72.2 Plantar fascial fibromatosis | CPT/HCPCS: 99213 ==

== ENCOUNTER → 2025-06-01 09:24 | Outpatient (BNVA) | payer MEDICARE, OTHER, SELFPAY | PROVIDERS: PCP Nurse Practitioner Family; Referring Provider Nurse Practitioner Family; Visit Provider Nurse Practitioner | DX: G40.319 Generalized idiopathic epilepsy and epileptic syndromes, intractable, without status epilepticus (principal) | CPT/HCPCS: 36415; 80076; 80164; 82140; 85025; 99213 ==

== ENCOUNTER 2025-07-06 14:40 | Outpatient (CLI) | payer MEDICARE, OTHER, SELFPAY ==
--- NOTE | 2025-07-06 14:44 | MM_ITS ---
WS: [id number] BILATERAL SCREENING DIGITAL TOMOSYNTHESIS MAMMOGRAM WITH CAD HISTORY: SCREENING COMPARISON: 05/26/2023, 05/05/2022, 03/12/2018 Bilateral CC and MLO views with tomosynthesis and synthetic mammography submitted. Computer aided detection analyzed. Breast composition: The breasts are heterogeneously dense, which may obscure small masses. No suspicious masses, microcalcifications or architectural distortion. Slight area of architectural distortion in the anterior LEFT breast is at the site of prior biopsy. There is no associated mass. Benign arterial calcifications. MM/MM scr tomosynthesis [id number] IMPRESSION: BI-RADS: 2 - Benign FOLLOW UP: 1 Year Follow-up
== END 2025-07-06 14:41 | disposition home or self-care (01) ==
LOC: RAD 14:41
PROVIDERS: PCP Nurse Practitioner Family; Visit Provider Nurse Practitioner Family
DX: Z12.31 Encounter for screening mammogram for malignant neoplasm of breast (principal); R92.333 Mammographic heterogeneous density, bilateral breasts; R92.1 Mammographic calcification found on diagnostic imaging of breast; R92.8 Other abnormal and inconclusive findings on diagnostic imaging of breast
CPT/HCPCS: 77063; 77067

== ENCOUNTER → 2025-07-25 09:12 | Outpatient (BNVA) | payer MEDICARE, OTHER, SELFPAY | PROVIDERS: PCP Nurse Practitioner Family; Visit Provider Nurse Practitioner Family | DX: S60.041A Contusion of right ring finger without damage to nail, initial encounter (principal); D22.5 Melanocytic nevi of trunk; D23.71 Other benign neoplasm of skin of right lower limb, including hip; L81.4 Other melanin hyperpigmentation; L57.8 Other skin changes due to chronic exposure to nonionizing radiation; T07.XXXA Unspecified multiple injuries, initial encounter; X58.XXXA Exposure to other specified factors, initial encounter | CPT/HCPCS: 99213 ==

== ENCOUNTER → 2025-08-21 14:20 | Outpatient (BNVA) | payer MEDICARE, OTHER, SELFPAY | PROVIDERS: PCP Nurse Practitioner Family; Visit Provider Nurse Practitioner Family | DX: B00.1 Herpesviral vesicular dermatitis (principal); L81.4 Other melanin hyperpigmentation; L57.8 Other skin changes due to chronic exposure to nonionizing radiation; L57.0 Actinic keratosis | CPT/HCPCS: 17000; 99213 ==